=== PATIENT | female | born 1960 | race Caucasian/White ===

== ENCOUNTER 2022-03-09 08:28 | Outpatient (REF) | payer OTHER, SELFPAY ==
[2022-03-09 12:18] LABS: Alanine Aminotransferase 11 U/L (0-31); Albumin Level 3.8 g/dL (3.5-5.0); Alkaline Phosphatase 97 U/L (39-117); Anion Gap 11 (12-20); Aspartate Amino Transferase 17 U/L (5-31); Bilirubin Total 0.4 mg/dL (0.0-1.0); Blood Urea Nitrogen 19 mg/dL (9-16); Calcium 9.3 mg/dL (8.4-10.2); Carbon Dioxide 27 mmol/L (22-29); Chloride 107 mmol/L (96-108); Cholesterol 129 mg/dL; Estimated Glomerular Filt Rate > 60; Glucose Fasting 84 mg/dL (60-99); Glucose Random 84 mg/dL (60-115); HDL Cholesterol 36 mg/dL; LDL Cholesterol Calculated 82 mg/dl; Potassium 4.3 mmol/L (3.3-5.1); Sodium 141 mmol/L (135-145); TSH reflex Free T4 2.22 uIU/mL (0.32-4.0); Total Protein 6.6 g/dL (6.5-8.0); Triglycerides 57 mg/dL
[2022-03-09 12:59] LABS: Vitamin B12 234 pg/mL (200-900)
[2022-03-13 15:04] LABS: Vitamin D 25-OH, D2 <4 ng/mL; Vitamin D 25-OH, D3 29 ng/mL; Vitamin D 25-OH, Total 29 ng/mL (30-100)
== END 2022-03-09 08:29 | disposition home or self-care (01) ==
LOC: HO.HMGCLDS 08:28
PROVIDERS: PCP Internal Medicine; Visit Provider Internal Medicine
DX: Z00.01 Encounter for general adult medical examination with abnormal findings (principal); E66.09 Other obesity due to excess calories; D51.0 Vitamin B12 deficiency anemia due to intrinsic factor deficiency; Z98.84 Bariatric surgery status
CPT/HCPCS: 36415; 80053; 80061; 82306; 82607; 84443

== ENCOUNTER 2023-04-08 14:10 | Outpatient (AMB) | payer OTHER, SELFPAY ==
[2023-04-08 14:14] VITALS: BP 128/78; PULSE 100; TEMP 37.7; O2SAT 98; BMI 32.2
--- NOTE | 2023-04-08 14:14 | A.OFFPC_ITS ---
Vital Signs 04/08/23 14:14 Height 5 ft 2 in Weight 176 lb 4 oz BMI 32.2 BP 128/78 Blood Pressure Location Rt brachial Position Sitting Pulse 100 Pulse Source Pulse Oximeter Temp 99.9 F Temp Source Oral Pulse Oximetry (%) 98 Oxygen Delivery Method Room Air Intake Visit Reasons: Medication Follow Up Allergies Penicillins Adverse Reaction (Verified 04/08/23 14:14) rash Medication List - Last Reconciled 04/08/23 by Martha De La Cruz MD azithromycin 250 mg PO ONCE 5 days cholecalciferol (vitamin D3) 25 mcg PO DAILY 90 days cyanocobalamin (vitamin B-12) 1,000 mcg IM Q4W 90 days syringe with needle, safety (BD Integra Syringe) Use to administer B12 injections IM valacyclovir 500 mg PO BID Tobacco use date assessed: 04/08/23 Dental Screening Dental Screen Date: 04/08/23 Did you have a dental visit in the last 12 months?: Yes Did you have a dental problem in the last 6 months where you did not have access to dental care?: No Was dental information given to patient?: Patient has dentist HPI Medication Follow Up HPI Details Patient is a 62-year-old female came in today to be evaluated for possible pneumonia On March 10 patient was evaluated at [facility] and was diagnosed with acute bronchitis and a touch of pneumonia She was treated with azithromycin, albuterol inhaler which she still have, and codeine syrup Patient says that she felt better for few days and then the cough started again She has been working from home and has not been able to go back to work She said the x-ray was no done She is putting out yellow phlegm I have ordered x-ray, azithromycin sent, she may take [id number] cough medicine and continue albuterol inhaler Note given to be off work for 1 week PFSH Family History Sister Substance use disorder Social History Housing: House Patient Tobacco Use Status: Former Tobacco user e-Cigarette/Vaping Use: Never Used service: No Current occupational status: employed Cognitive needs: No Hearing needs: No Vision needs: Yes Questionnaire Thrive Questionnaire Date Thrive assessed: 02/03/22 CONCETTA-7 AMB Questionnaire CONCETTA-7 Date CONCETTA - 7 assessed: 02/03/22 Source: Developed by Drs. Eliceo Carvalho, Yuly White, Modesto Maguire and colleagues, with an educational jl from [employer]. Review of Systems Const Reports as per HPI Eyes Denies change in vision ENT Denies bleeding gums, Denies dental pain, Denies ear discharge and Denies mouth pain Card Denies chest pain at rest, Denies chest pain with activity, Denies syncope and Denies irregular heart rhythm Resp Denies hemoptysis and Denies stridor GI Denies diarrhea and Denies vomiting Musc Denies as per HPI Skin/Breast Denies skin ulcer and Denies sores Neuro Denies syncope and Denies memory loss Psych Denies memory loss, Denies homicidal ideation and Denies suicidal ideation Physical exam (Primary Care) Vital Signs: Last Vital Signs Temp 99.9 F 04/08/23 14:14 Pulse 100 04/08/23 14:14 BP 128/78 04/08/23 14:14 Pulse Ox 98 04/08/23 14:14 Oxygen Delivery Method Room Air 04/08/23 14:14 BMI result Body Mass Index 32.2 Tobacco/Smoking Status: Tobacco use Status Tobacco use date assessed 04/08/23 04/08/23 14:15 Patient Tobacco Use Status Former Tobacco user 04/08/23 14:15 e-Cigarette/Vaping Use Never Used 04/08/23 14:15 Thrive Assessment: Date of Thrive Assessment Date Thrive assessed 02/03/22 04/08/23 14:15 Const General: cooperative and comfortable Orientation/consciousness: patient oriented x3 HENMT Head: Yes normocephalic and Yes atraumatic Ears: external ears normal General nose exam: Normal external nose present Mouth: Normal oral and palatal mucosa present Eyes Eyelids: Yes eyelids normal Pupils: Equal, round and reactive pupils present EOM: EOMs intact bilaterally Neck Neck: Yes trachea midline and Yes supple Resp Auscultation: clear to auscultation bilaterally Cardio Heart sounds: S1 normal heart sound present and S2 normal heart sound present GI Auscultation: normal bowel sounds Skin General skin exam: elasticity normal and turgor normal Neuro General: patient oriented x3 and moves all extremities Cranial nerves: Yes Equal, round and reactive pupils present Gait exam (Neuro): Normal gait present Extrem Right upper extremity: no edema Psych Mental Status: mental status grossly normal Assessment and Plan Assessment & Plan (1) Acute bronchitis: Code(s): J20.9 - Acute bronchitis, unspecified Qualifiers: Bronchitis organism: other organism Qualified Code(s): J20.8 - Acute bronchitis due to other specified organisms Plan Patient is a 62-year-old female came in today to be evaluated for possible pneumonia On March 10 patient was evaluated at [facility] and was diagnosed with acute bronchitis and a touch of pneumonia She was treated with azithromycin, albuterol inhaler which she still have, and codeine syrup Patient says that she felt better for few days and then the cough started again She has been working from home and has not been able to go back to work Patient says that she feels drained and with coughing sometimes feels short of breath She said the x-ray was no done She is putting out yellow phlegm I have ordered x-ray, azithromycin sent, she may take [id number] cough medicine and continue albuterol inhaler Note given to be off work for 1 week COVID RSV test taken Orders: Orders XR chest 2V Today J20.9 - Acute bronchitis, unspecified SARS-CoV2/FLU/RSV Today R09.89 - Other specified symptoms and signs involving the circulatory and respiratory systems Medications: New azithromycin Take 2 tablets today then 1 daily 250 mg PO ONCE 6 tabs 0RF 5 days J06.9 - Acute upper respiratory infection, unspecified Coding Level of Care Code Est Pt Level 4 (40886) Diagnoses Acute bronchitis due to other specified organisms J20.8 Bronchitis organism: other organism
== END 2023-04-08 15:55 | disposition home or self-care (01) ==
PROVIDERS: PCP Internal Medicine; Visit Provider Internal Medicine
DX: J20.8 Acute bronchitis due to other specified organisms (principal)
CPT/HCPCS: 99214

== ENCOUNTER 2023-04-08 14:43 | Outpatient (REF) | payer OTHER, SELFPAY ==
--- NOTE | ~2023-04-08 | XR_ITS ---
EXAMINATION: XR CHEST CLINICAL INFORMATION: Acute bronchitis COMPARISON: None available. TECHNIQUE: 2 views of the chest were obtained. FINDINGS: The lungs are well expanded and clear of acute process. Heart size and pulmonary vascularity is normal. There is mild dextroscoliosis. No aggressive lytic or sclerotic process seen. XR/XR chest 2V IMPRESSION: Unremarkable chest examination.
[2023-04-08 16:47] LABS: Influenza A PCR POSITIVE (Negative); Influenza B PCR NEGATIVE (Negative); Resp Syncy Virus RNA Qual PCR NEGATIVE (Negative); SARS COV2 PCR INHOUSE NEGATIVE (Negative)
== END 2023-04-08 14:44 | disposition home or self-care (01) ==
LOC: HO.HMGCX 14:43
PROVIDERS: PCP Internal Medicine; Visit Provider Internal Medicine
DX: Z11.52 Encounter for screening for COVID-19 (principal); J20.9 Acute bronchitis, unspecified; R09.89 Other specified symptoms and signs involving the circulatory and respiratory systems
CPT/HCPCS: 0241U; 71046

== ENCOUNTER 2023-05-31 14:25 | Outpatient (AMB) | payer OTHER, SELFPAY ==
[2023-05-31 14:26] VITALS: BP 126/76; PULSE 75; O2SAT 100; BMI 32.2
--- NOTE | 2023-05-31 14:26 | A.OFFPC_ITS ---
Vital Signs 05/31/23 14:26 Height 5 ft 2 in Weight 176 lb BMI 32.2 BP 126/76 Blood Pressure Location Rt brachial Position Sitting Pulse 75 Pulse Source Pulse Oximeter Pulse Oximetry (%) 100 Oxygen Delivery Method Room Air Intake Visit Reasons: Annual PE Allergies Penicillins Adverse Reaction (Verified 05/31/23 14:26) rash Medication List - Last Reconciled 05/31/23 by Martha De La Cruz MD cholecalciferol (vitamin D3) 25 mcg PO DAILY 90 days cyanocobalamin (vitamin B-12) 1,000 mcg IM Q4W 90 days syringe with needle, safety (BD Integra Syringe) Use to administer B12 injections IM valacyclovir 500 mg PO BID Tobacco use date assessed: 05/31/23 Dental Screening Dental Screen Date: 05/31/23 Did you have a dental visit in the last 12 months?: Yes Did you have a dental problem in the last 6 months where you did not have access to dental care?: No Was dental information given to patient?: Patient has dentist HPI Annual PE HPI Details Patient is 62-year-old female came in today for physical examination Patient is going through very stressful break-up with significant other She is feeling anxious that once he leaves he will take everything from home, patient says that all belongings are hers She has been working from home for the past 1 week because of that reason Patient will start seeing therapist early next month Meanwhile I am starting her on Lexapro 10 mg she is to take half a tablet for a week and then full tablet I have also sent in few tablets of lorazepam as bridging medication We will set up telemedicine visit in 3 weeks to see how she is doing She says that she has gained 20 lb in last few months because of that She will be due for Cologuard December of this year, patient says that she will think about colonoscopy and will get back to me. Pap smear through [facility] Mammogram was February of last year She also had labs in February reviewed again. Lab order placed fasting Physical exam in 1 year [facility] Family History Sister Substance use disorder Social History Housing: House Patient Tobacco Use Status: Former Tobacco user e-Cigarette/Vaping Use: Never Used service: No Current occupational status: employed Cognitive needs: No Hearing needs: No Vision needs: Yes Questionnaire Thrive Questionnaire Date Thrive assessed: 02/03/22 CONCETTA-7 AMB Questionnaire CONCETTA-7 Date CONCETTA - 7 assessed: 02/03/22 Source: Developed by Drs. Eliceo Carvalho, Yuly White, Modesto Maguire and colleagues, with an educational jl from [employer]. Review of Systems Const Denies chills, Denies fever(s) and Denies headache(s) Eyes Denies blurry vision ENT Denies headache(s), Denies nasal discharge, Denies nasal obstruction, Denies odynophagia and Denies sinus pain Card Denies chest pain at rest and Denies chest pain with activity Resp Denies cough and Denies hemoptysis GI Denies diarrhea, Denies odynophagia, Denies vomiting and Denies hematemesis Reports as per HPI Musc Denies abnormal gait Skin/Breast Reports as per HPI Neuro Denies Neuro-related abnormal movements, Denies Abnormal speech present, Denies abnormal gait, Denies headache(s) and Denies Sensory deficit (Neuro) Psych Denies mood swings and Denies paranoia Endo Reports as per HPI Hemant/Lymph Reports as per HPI Aller/Immun Reports as per HPI Physical exam (Primary Care) Vital Signs: Last Vital Signs Pulse 75 05/31/23 14:26 BP 126/76 05/31/23 14:26 Pulse Ox 100 05/31/23 14:26 Oxygen Delivery Method Room Air 05/31/23 14:26 BMI result Body Mass Index 32.2 Tobacco/Smoking Status: Tobacco use Status Tobacco use date assessed 05/31/23 05/31/23 14:29 Patient Tobacco Use Status Former Tobacco user 05/31/23 14:29 e-Cigarette/Vaping Use Never Used 05/31/23 14:29 Thrive Assessment: Date of Thrive Assessment Date Thrive assessed 02/03/22 05/31/23 14:29 Const General: cooperative, comfortable and no acute distress Orientation/consciousness: patient oriented x3 HENMT Head: Yes normocephalic and Yes atraumatic Eyes General: appearance normal, both eyes and all related structures Pupils: Equal, round and reactive pupils present EOM: EOMs intact bilaterally Neck Neck: Yes supple and No lymphadenopathy Thyroid: Thyroid normal Lymphatic: no lymphadenopathy noted Resp Effort & Inspection: normal respiratory effort and able to speak in complete sentences Auscultation: clear to auscultation bilaterally Cardio Heart sounds: S1 normal heart sound present and S2 normal heart sound present GI Palpation (GI): Soft to palpation and nontender Auscultation: normal bowel sounds General: Yes no CVA tenderness Back/Spine/Pelvis Back: no CVA tenderness Skin General skin exam: elasticity normal and turgor normal Neuro General: patient oriented x3 and gait normal Cranial nerves: Yes Equal, round and reactive pupils present Speech: No Abnormal speech present Sensory Exam: No Sensory deficit (Neuro) Coordination: tandem gait normal and Romberg test negative Extrem General: Yes normal exam except as noted and No edema Assessment and Plan Assessment & Plan (1) Encounter for general adult medical examination with abnormal findings: Code(s): Z00.01 - Encounter for general adult medical examination with abnormal findings (2) Obesity due to excess calories: Code(s): E66.09 - Other obesity due to excess calories Qualifiers: Obesity classification: adult class 1 (BMI 30 - 34.9) Serious obesity comorbidity presence: without serious comorbidity Body mass index: BMI 32.0- 32.9 Qualified Code(s): E66.09 - Other obesity due to excess calories; Z68.32 - Body mass index [BMI] 32.0-32.9, adult (3) Anxiety, generalized: Code(s): F41.1 - Generalized anxiety disorder (4) Major depression, recurrent: Code(s): F33.9 - Major depressive disorder, recurrent, unspecified (5) Stress at home: Code(s): F43.9 - Reaction to severe stress, unspecified Plan Patient is 62-year-old female came in today for physical examination Patient is going through very stressful break-up with significant other She is feeling anxious that once he leaves he will take everything from home, patient says that all belongings are hers She has been working from home for the past 1 week because of that reason Patient will start seeing therapist early next month Meanwhile I am starting her on Lexapro 10 mg she is to take half a tablet for a week and then full tablet I have also sent in few tablets of lorazepam as bridging medication We will set up telemedicine visit in 3 weeks to see how she is doing She says that she has gained 20 lb in last few months because of that She will be due for Cologuard December of this year, patient says that she will think about colonoscopy and will get back to me. Pap smear through [facility] Mammogram was February of last year She also had labs in February reviewed again. Lab order placed fasting Physical exam in 1 year Medications: New escitalopram oxalate (Lexapro) Half tablet for a week and then full tablet 10 mg PO DAILY 30 tabs 0RF lorazepam To sleep at night 0.5 mg PO BEDTIME PRN 30 tabs 0RF Difficulty sleeping Coding Level of Care Code Est Pt Prev Care 40-64y(88741) Diagnoses Encounter for general adult medical examination with abnormal findings Z00.01 Class 1 obesity due to excess calories without serious comorbidity with body mass index (BMI) of 32.0 to 32.9 in adult E66.09; Z68.32 Obesity classification: adult class 1 (BMI 30 - 34.9) Serious obesity comorbidity presence: without serious comorbidity Body mass index: BMI 32.0-32.9 Anxiety, generalized F41.1 Major depression, recurrent F33.9 Stress at home F43.9
== END 2023-05-31 15:10 | disposition home or self-care (01) ==
PROVIDERS: PCP Internal Medicine; Visit Provider Internal Medicine
DX: Z00.01 Encounter for general adult medical examination with abnormal findings (principal); E66.09 Other obesity due to excess calories; F33.9 Major depressive disorder, recurrent, unspecified; Z68.32 Body mass index [BMI] 32.0-32.9, adult; F41.1 Generalized anxiety disorder; F43.9 Reaction to severe stress, unspecified
CPT/HCPCS: 99213; 99396

== ENCOUNTER 2023-06-23 08:33 | Outpatient (AMB) | payer OTHER, SELFPAY ==
--- NOTE | 2023-06-23 09:20 | A.OFFPC_ITS ---
Intake Visit Reasons: Follow up Allergies Penicillins Adverse Reaction (Verified 06/23/23 09:20) rash Medication List - Last Reconciled 06/23/23 by Martha De La Cruz MD cholecalciferol (vitamin D3) 25 mcg PO DAILY 90 days cyanocobalamin (vitamin B-12) 1,000 mcg IM Q4W 90 days escitalopram oxalate (Lexapro) 10 mg PO DAILY lorazepam 0.5 mg PO BEDTIME PRN syringe with needle, safety (BD Integra Syringe) Use to administer B12 injections IM valacyclovir 500 mg PO BID Tobacco use date assessed: 06/23/23 Dental Screening Dental Screen Date: 06/23/23 Did you have a dental visit in the last 12 months?: Yes Did you have a dental problem in the last 6 months where you did not have access to dental care?: No Was dental information given to patient?: Patient has dentist HPI Follow up HPI Details Patient is a 62-year-old female this is a telemedicine conference Patient was started on Escitalopram 10 mg when she verbalize to being under lot of stress as she was going through separation from partner Patient is feeling much better, she was also given lorazepam tablet for the night she is sleeping much better, she will continue Renee prime for now I have sent another script off rasp and 30 tablets, patient is aware that this medication is habit-forming and if she does continue taking it it will require 3 month visit for refill. Lab order placed we will mail that to her she will go to a nearby lab for that. PFSH Family History Sister Substance use disorder Social History Housing: House Patient Tobacco Use Status: Former Tobacco user e-Cigarette/Vaping Use: Never Used service: No Current occupational status: employed Cognitive needs: No Hearing needs: No Vision needs: Yes Questionnaire Thrive Questionnaire Date Thrive assessed: 02/03/22 AUDIT C Alcohol Use Questionnaire (AUDIT-C) 1. How often do you have a drink containing alcohol?: Never 3. How often do you have six or more drinks on one occasion?: Never Total Score: 0 Score Reviewed/Action Taken: Yes CONCETTA-7 AMB Questionnaire CONCETTA-7 Date CONCETTA - 7 assessed: 02/03/22 Source: Developed by Drs. Eliceo Carvalho, Yuly White, Modesto Maguire and colleagues, with an educational jl from [employer]. Review of Systems Const Denies chills and Denies fever(s) ENT Denies epistaxis and Denies nasal discharge Card Denies chest pain Resp Denies chest congestion, Denies cough and Denies hemoptysis GI Denies diarrhea and Denies nausea Skin/Breast Denies rash Neuro Reports no additional complaints Psych Reports no additional complaints Endo Reports no additional complaints Physical exam (Primary Care) Tobacco/Smoking Status: Tobacco use Status Tobacco use date assessed 06/23/23 06/23/23 09:21 Patient Tobacco Use Status Former Tobacco user 06/23/23 09:21 e-Cigarette/Vaping Use Never Used 06/23/23 09:21 Thrive Assessment: Date of Thrive Assessment Date Thrive assessed 02/03/22 06/23/23 09:21 Telehealth Telehealth Location of provider rendering services: practice address Location of patient: address on file Patient Identification confirmed using: Name, : Yes Telehealth method: video (attempted) Patient verbally consented to treatment: Yes Patient verbally consented to billing insurance company: Yes Patient informed of any privacy concerns related to visit: Yes Minutes spent on Phone/Video with Pt.: 13 Assessment and Plan Assessment & Plan (1) Major depression, recurrent: Code(s): F33.9 - Major depressive disorder, recurrent, unspecified Qualifiers: Active/Remission status: in partial remission Qualified Code(s): F33.41 - Major depressive disorder, recurrent, in partial remission (2) Stress at home: Code(s): F43.9 - Reaction to severe stress, unspecified (3) Anxiety, generalized: Code(s): F41.1 - Generalized anxiety disorder (4) Obesity due to excess calories: Code(s): E66.09 - Other obesity due to excess calories Qualifiers: Body mass index: BMI 32.0-32.9 Obesity classification: adult class 1 (BMI 30 - 34.9) Serious obesity comorbidity presence: without serious comorbid ity Qualified Code(s): E66.09 - Other obesity due to excess calories; Z68.32 - Body mass index [BMI] 32.0-32.9, adult Plan Patient is a 62-year-old female this is a telemedicine conference Patient was started on Escitalopram 10 mg when she verbalize to being under lot of stress as she was going through separation from partner Patient is feeling much better, she was also given lorazepam tablet for the night she is sleeping much better, she will continue Renee prime for now I have sent another script off rasp and 30 tablets, patient is aware that this medication is habit-forming and if she does continue taking it it will require 3 month visit for refill. Lab order placed we will mail that to her she will go to a nearby lab for that. Orders: Orders Complete Blood Count Auto Diff Today E66.09 - Other obesity due to excess calories, F33.9 - Major depressive disorder, recurrent, unspecified, F41.1 - Generalized anxiety disorder, F43.9 - Reaction to severe stress, unspecified, Z68.32 - Body mass index [BMI] 32.0-32.9, adult Lipid Panel Today E66.09 - Other obesity due to excess calories, F33.9 - Major depressive disorder, recurrent, unspecified, F41.1 - Generalized anxiety disord er, F43.9 - Reaction to severe stress, unspecified, Z68.32 - Body mass index [BMI] 32.0-32.9, adult Comprehensive [place]. Panel Fast Today E66.09 - Other obesity due to excess calories, F33.9 - Major depressive disorder, recurrent, unspecified, F41.1 - Generalized anxiety disorder, F43.9 - Reaction to severe stress, unspecified, Z68.32 - Body mass index [BMI] 32.0-32.9, adult TSH reflex Free T4 Today E66.09 - Other obesity due to excess calories, F33.9 - Major depressive disorder, recurrent, unspecified, F41.1 - Generalized anxiety disorder, F43.9 - Reaction to severe stress, unspecified, Z68.32 - Body mass index [BMI] 32.0-32.9, adult Medications: Changed From valacyclovir 500 mg PO BID 14 tabs 0RF To valacyclovir 500 mg PO BID 30 tabs 0RF 15 days Refilled escitalopram oxalate (Lexapro) Half tablet for a week and then full tablet 10 mg PO DAILY 90 tabs 0RF lorazepam To sleep at night 0.5 mg PO BEDTIME PRN 30 tabs 0RF Difficulty sleeping Coding Level of Care Code Tele Est Pt Level 3 (30056) Diagnoses Recurrent major depressive disorder, in partial remission F33.41 Active/Remission status: in partial remission Stress at home F43.9 Anxiety, generalized F41.1 Class 1 obesity due to excess calories without serious comorbidity with body mass index (BMI) of 32.0 to 32.9 in adult E66.09; Z68.32 Body mass index: BMI 32.0-32.9 Obesity classification: adult class 1 (BMI 30 - 34.9) Serious obesity comorbidity presence: without serious comorbidity
== END 2023-06-23 11:55 | disposition home or self-care (01) ==
PROVIDERS: PCP Internal Medicine; Visit Provider Internal Medicine
DX: F33.41 Major depressive disorder, recurrent, in partial remission (principal); F43.9 Reaction to severe stress, unspecified; E66.09 Other obesity due to excess calories; Z68.32 Body mass index [BMI] 32.0-32.9, adult; F41.1 Generalized anxiety disorder
CPT/HCPCS: 99213

== ENCOUNTER 2023-07-28 08:56 | Outpatient (AMB) | payer OTHER, SELFPAY ==
[2023-07-28 08:28] VITALS: BMI 33.8
--- NOTE | 2023-07-28 08:28 | A.OFFPC_ITS ---
Vital Signs 07/28/23 08:28 Height 5 ft 2 in Weight 185 lb BMI 33.8 Intake Visit Reasons: Follow Up Allergies Penicillins Adverse Reaction (Verified 06/23/23 09:20) rash Medication List - Last Reconciled 07/28/23 by Martha De La Cruz MD cholecalciferol (vitamin D3) 25 mcg PO DAILY 90 days cyanocobalamin (vitamin B-12) 1,000 mcg IM Q4W 90 days escitalopram oxalate (Lexapro) 10 mg PO DAILY lorazepam 0.5 mg PO BEDTIME PRN syringe with needle, safety (BD Integra Syringe) Use to administer B12 injections IM valacyclovir 500 mg PO BID 15 days Tobacco use date assessed: 06/23/23 Dental Screening Dental Screen Date: 06/23/23 HPI Follow Up HPI Details Patient is 63 year old female this is telemed visit patient wanted to talk about wt lose medicaitons she says she has called her insurance they wont cover the injectable how ever they will cover oral medication like Phentermin and Phentermin topamax combo side effect of medication discussed with patient she will have labs done first and then we will decide if Phentermin is a good choice for her as she also have anxiety issues PFSH Family History Sister Substance use disorder Social History Housing: House Patient Tobacco Use Status: Former Tobacco user e-Cigarette/Vaping Use: Never Used service: No Current occupational status: employed Cognitive needs: No Hearing needs: No Vision needs: Yes Questionnaire Thrive Questionnaire Date Thrive assessed: 02/03/22 CONCETTA-7 AMB Questionnaire CONCETTA-7 Date CONCETTA - 7 assessed: 02/03/22 Source: Developed by Drs. Eliceo Carvalho, Yuly White, Modesto Maguire and colleagues, with an educational jl from [employer]. Review of Systems Const Denies chills and Denies fever(s) ENT Denies epistaxis and Denies nasal discharge Card Denies chest pain Resp Denies chest congestion, Denies cough and Denies hemoptysis GI Denies diarrhea and Denies nausea Skin/Breast Denies rash Neuro Reports no additional complaints Psych Reports no additional complaints Endo Reports no additional complaints Physical exam (Primary Care) BMI result Body Mass Index 33.8 Tobacco/Smoking Status: Tobacco use Status Tobacco use date assessed 06/23/23 07/28/23 08:29 Patient Tobacco Use Status Former Tobacco user 07/28/23 08:29 e-Cigarette/Vaping Use Never Used 07/28/23 08:29 Thrive Assessment: Date of Thrive Assessment Date Thrive assessed 02/03/22 07/28/23 08:29 Telehealth Telehealth Telehealth Platform: [employer] Location of provider rendering services: practice address Location of patient: address on file Patient Identification confirmed using: Name, : Yes Telehealth method: voice only Patient verbally consented to treatment: Yes Patient verbally consented to billing insurance company: Yes Patient informed of any privacy concerns related to visit: Yes Minutes spent on Phone/Video with Pt.: 14 Assessment and Plan Assessment & Plan (1) Obesity due to excess calories: Code(s): E66.09 - Other obesity due to excess calories Qualifiers: Body mass index: BMI 32.0-32.9 Obesity classification: adult class 1 (BMI 30 - 34.9) Serious obesity comorbidity presence: without serious comorbidity Qualified Code(s): E66.09 - Other obesity due to excess calories; Z68.32 - Body mass index [BMI] 32.0-32.9, adult Plan Patient is 63 year old female this is telemed visit patient wanted to talk about wt lose medicaitons she says she has called her insurance they wont cover the injectable how ever they will cover oral medication like Phentermin and Phentermin topamax combo side effect of medication discussed with patient she will have labs done first and then we will decide if Phentermin is a good choice for her as she also have anxiety issues Coding Level of Care Code Tele Est Pt Level 3 (07367) Diagnoses Class 1 obesity due to excess calories without serious comorbidity with body mass index (BMI) of 32.0 to 32.9 in adult E66.09; Z68.32 Body mass index: BMI 32.0-32.9 Obesity classification: adult class 1 (BMI 30 - 34.9) Serious obesity comorbidity presence: without serious comorbidity
== END 2023-07-28 09:21 | disposition home or self-care (01) ==
LOC: HO.HMGC 08:56
PROVIDERS: PCP Internal Medicine; Visit Provider Internal Medicine
DX: E66.09 Other obesity due to excess calories (principal); Z68.32 Body mass index [BMI] 32.0-32.9, adult
CPT/HCPCS: 99442

== ENCOUNTER 2023-08-04 08:43 | Outpatient (AMB) | payer OTHER, SELFPAY ==
--- NOTE | 2023-08-04 09:40 | A.OFFPC_ITS ---
Intake Visit Reasons: Discuss Labs~ [phone] Allergies Penicillins Adverse Reaction (Verified 08/04/23 09:40) rash Medication List - Last Reconciled 08/04/23 by Martha De La Cruz MD cholecalciferol (vitamin D3) 25 mcg PO DAILY 90 days cyanocobalamin (vitamin B-12) 1,000 mcg IM Q4W 90 days escitalopram oxalate (Lexapro) 10 mg PO DAILY lorazepam 0.5 mg PO BEDTIME PRN syringe with needle, safety (BD Integra Syringe) Use to administer B12 injections IM valacyclovir 500 mg PO BID 15 days Tobacco use date assessed: 08/04/23 Dental Screening Dental Screen Date: 08/04/23 Did you have a dental visit in the last 12 months?: Yes Did you have a dental problem in the last 6 months where you did not have access to dental care?: No Was dental information given to patient?: Patient has dentist HPI Discuss Labs~ [phone] HPI Details Patient had labs done which shows Hb of 8.7 I dont have any previous labs to compare she has no rectal bleed, no constipation or hemorrhoid she is on B12 injections monthly labs discussed with patient she is due for colonoscopy, i have placed ref to gastro for that and Hematology as well she has Microcytic anemia i have sent Iron supplement labs to be repeated again in 4 wks [facility] Family History Sister Substance use disorder Social History Housing: House Patient Tobacco Use Status: Former Tobacco user e-Cigarette/Vaping Use: Never Used service: No Current occupational status: employed Cognitive needs: No Hearing needs: No Vision needs: Yes Questionnaire Thrive Questionnaire Date Thrive assessed: 02/03/22 AUDIT C Alcohol Use Questionnaire (AUDIT-C) 1. How often do you have a drink containing alcohol?: Never 3. How often do you have six or more drinks on one occasion?: Never Total Score: 0 Score Reviewed/Action Taken: Yes CONCETTA-7 AMB Questionnaire CONCETTA-7 Date CONCETTA - 7 assessed: 02/03/22 Source: Developed by Drs. Eliceo Carvalho, Yuly White, Modesto Maguire and colleagues, with an educational jl from [employer]. Review of Systems Const Denies chills and Denies fever(s) ENT Denies epistaxis and Denies nasal discharge Card Denies chest pain Resp Denies chest congestion, Denies cough and Denies hemoptysis GI Denies diarrhea and Denies nausea Skin/Breast Denies rash Neuro Reports no additional complaints Psych Reports no additional complaints Endo Reports no additional complaints Physical exam (Primary Care) Tobacco/Smoking Status: Tobacco use Status Tobacco use date assessed 08/04/23 08/04/23 09:41 Patient Tobacco Use Status Former Tobacco user 08/04/23 09:41 e-Cigarette/Vaping Use Never Used 08/04/23 09:41 Thrive Assessment: Date of Thrive Assessment Date Thrive assessed 02/03/22 08/04/23 09:41 Telehealth Telehealth Telehealth Platform: [employer] Location of provider rendering services: practice address Location of patient: address on file Patient Identification confirmed using: Name, : Yes Telehealth method: voice only Patient verbally consented to treatment: Yes Patient verbally consented to billing insurance company: Yes Patient informed of any privacy concerns related to visit: Yes Minutes spent on Phone/Video with Pt.: 17 Assessment and Plan Assessment & Plan (1) Iron deficiency anemia: Code(s): D50.9 - Iron deficiency anemia, unspecified Qualifiers: Iron deficiency anemia type: chronic blood loss Qualified Code(s): D50.0 - Iron deficiency anemia secondary to blood loss (chronic) (2) Colon cancer screening: Code(s): Z12.11 - Encounter for screening for malignant neoplasm of colon Plan Patient had labs done which shows Hb of 8.7 I dont have any previous labs to compare she has no rectal bleed, no constipation or hemorrhoid she is on B12 injections monthly labs discussed with patient she is due for colonoscopy, i have placed ref to gastro for that and Hematology as well she has Microcytic anemia i have sent Iron supplement labs to be repeated again in 4 wks Orders: Orders Folate Today D50.9 - Iron deficiency anemia, unspecified Vitamin B12 Today D50.9 - Iron deficiency anemia, unspecified Ferritin Today D50.9 - Iron deficiency anemia, unspecified Complete Blood Count Auto Diff Today D50.9 - Iron deficiency anemia, unspecifie d Referrals Hematology & Oncology Referral D50.9 - Iron deficiency anemia, unspecified Gastroenterology Referral D50.9 - Iron deficiency anemia, unspecified, Z12.11 - Encounter for screening for malignant neoplasm of colon Coding Level of Care Code Tele Est Pt Level 3 (47749) Diagnoses Iron deficiency anemia due to chronic blood loss D50.0 Iron deficiency anemia type: chronic blood loss Colon cancer screening Z12.11
== END 2023-08-04 13:43 | disposition home or self-care (01) ==
LOC: HO.HMGC 08:43
PROVIDERS: PCP Internal Medicine; Visit Provider Internal Medicine
DX: D50.0 Iron deficiency anemia secondary to blood loss (chronic) (principal); Z12.11 Encounter for screening for malignant neoplasm of colon
CPT/HCPCS: 99442

== ENCOUNTER → 2023-08-10 08:24 | Outpatient (BNV) | payer OTHER, SELFPAY | PROVIDERS: PCP Internal Medicine; Referring Provider Internal Medicine; Visit Provider Internal Medicine | DX: D50.9 Iron deficiency anemia, unspecified (principal) | CPT/HCPCS: 99204; 99213 ==

== ENCOUNTER 2023-09-08 07:30 | Outpatient (RCR) | payer OTHER, SELFPAY ==
[2023-08-18 07:26] VITALS: BP 99/48; PULSE 74; RESP 18; TEMP 36.2
[2023-08-18] MEDS: Iron Sucrose Complex 200 MG, Iron Sucrose Complex 100 MG in 0.9 % Sodium Chloride 250 ML 177 MG IV (07:42)
[2023-08-18] MEDS: 0.9 % Sodium Chloride Flush 10 ML SYRINGE 5 ML IVFLUSH (09:15)
[2023-08-25 07:25] VITALS: BP 116/58; PULSE 73; RESP 18; TEMP 36.2
[2023-08-25] MEDS: Iron Sucrose Complex 200 MG, Iron Sucrose Complex 100 MG in 0.9 % Sodium Chloride 250 ML 177 MG IV (07:32)
[2023-09-01 07:28] VITALS: BP 98/48; PULSE 63; RESP 18; TEMP 36.8
[2023-09-01] MEDS: Iron Sucrose Complex 200 MG, Iron Sucrose Complex 100 MG in 0.9 % Sodium Chloride 250 ML 177 MG IV (07:39)
[2023-09-08 07:19] VITALS: BP 98/54; PULSE 68; RESP 18; TEMP 36.1
[2023-09-08] MEDS: Iron Sucrose Complex 200 MG, Iron Sucrose Complex 100 MG in 0.9 % Sodium Chloride 250 ML 177 MG IV (07:28)
[2023-09-08] MEDS: 0.9 % Sodium Chloride Flush 10 ML SYRINGE 5 ML IVFLUSH (09:05)
== END 2023-09-08 14:12 | disposition home or self-care (01) ==
LOC: HO.INF 07:30
PROVIDERS: Visit Provider Internal Medicine
DX: D50.9 Iron deficiency anemia, unspecified (principal)
CPT/HCPCS: 96365; 96366; J1756

== ENCOUNTER 2023-10-04 15:26 | Outpatient (AMB) | payer OTHER, SELFPAY ==
--- NOTE | 2023-10-04 15:27 | A.OFFVIS_ITS ---
Vital Signs 10/04/23 15:29 Height 5 ft 2 in Weight 188 lb 4.396 oz BMI 34.4 BP 112/56 L Blood Pressure Location Rt brachial Position Sitting Pulse 70 Pulse Source Pulse Oximeter Pulse Oximetry (%) 100 Oxygen Delivery Method Room Air Intake Visit Reasons: Iron deficiency anemia, unspecified Intake Note: Lilian presents in office today for a scheduled initial assessment. CC; Pt reports that they have been experiencing iron deficiency anemia over the course of the last few months. Pt had been receiving iron infusions which have been somewhat helpful but not overly so. Pt reports having chronic fatigue which they are still experiencing. Pt has also experienced episodes of hypotension as well as dizziness which is primarily at night. Pt also reports that they are interested in discussing their most recent lab values and how that is relevant to their current condition. Pt reports that they did a cologuard approximately 3 years ago which was negative. Pt states that their last colo s/p was approximately 10 - 12 years ago. Convalescent Sitter Required: No Allergies Penicillins Adverse Reaction (Verified 10/04/23 15:28) rash PFSH Medical History Anemia Surgical History S/P cholecystectomy Family History Sister Substance use disorder Brother NHL (non-Hodgkin's lymphoma) Brother CAD (coronary artery disease) Father CAD (coronary artery disease) Paternal Aunt Breast cancer Social History Housing: House Patient Tobacco Use Status: Former Tobacco user e-Cigarette/Vaping Use: Never Used service: No Current occupational status: employed Cognitive needs: No Hearing needs: No Vision needs: Yes Review of Systems Const Denies weight gain and Denies weight loss ENT Reports no additional complaints, Denies dysphagia and Denies odynophagia Card Reports no additional complaints Resp Reports no additional complaints GI Denies abdominal pain, Denies belching, Denies melena, Denies bloating, Denies change in bowel habits, Denies dysphagia, Denies excessive flatus, Denies dyspepsia, Denies heartburn, Denies diarrhea, Denies loose stools, Denies nausea, Denies odynophagia and Denies vomiting Musc Reports no additional complaints Neuro Reports no additional complaints Psych Reports no additional complaints Endo Reports no additional complaints Physical Exam Vital Signs: Last Vital Signs Pulse 70 10/04/23 15:29 BP 112/56 L 10/04/23 15:29 Pulse Ox 100 10/04/23 15:29 Oxygen Delivery Method Room Air 10/04/23 15:29 BMI result Body Mass Index 34.4 Const General: healthy appearing, no acute distress and well developed Nutritional Appearance: well nourished Orientation/consciousness: patient oriented x3 Resp Effort & Inspection: normal respiratory effort, able to speak in complete sentences, no tracheal deviation and symmetric chest movement Auscultation: clear to auscultation bilaterally Cardio Rate: regular rate GI Inspection: Yes normal to inspection and No distended Palpation (GI): Soft to palpation, not firm, nontender and No hepatosplenomegaly present Auscultation: normal bowel sounds General: Yes no CVA tenderness Back/Spine/Pelvis Back: no CVA tenderness Skin General skin exam: elasticity normal, turgor normal and dry skin Neuro General: patient oriented x3 Psych Appearance: grossly normal Mental Status: mental status grossly normal Assessment & Plan Assessment & Plan (1) Colon cancer screening: Code(s): Z12.11 - Encounter for screening for malignant neoplasm of colon Category: Medical (2) Iron deficiency anemia: Code(s): D50.9 - Iron deficiency anemia, unspecified Category: Medical Qualifiers: Iron deficiency anemia type: chronic blood loss Qualified Code(s): D50.0 - Iron deficiency anemia secondary to blood loss (chronic) Plan Patient denies any GI, cardiac or respiratory symptoms.? Denies any issues with anesthesia in the past.? Denies any history of sleep apnea.? No history infectious diseases in the past or present.? Not on any anticoagulation therapy.? No family or personal history of colon cancer or polyps.? Patient had Cologuard was -3 years ago. Recently patient has been diagnosed with anemia and has been getting iron infusions. Patient denies melena, hematochezia, unintentional weight loss or ribbon like stools.? Discussed at length the pre- procedure,? prep, diet & medications as well as what to expect prior, during and after the procedure.?? Stressed the importance of good bowel prep.? Recommended the use of Vaseline or Calmoseptine OTC & baby wipes with bowel movements to promote comfort.? ?Patient verbalizes understanding and agrees to plan of care.? She was given the opportunity to ask questions and all questions answered.? We will see her after the procedure.? Medications: New bisacodyl (Dulcolax (bisacodyl)) take 4 tabs at noon the day before your colonoscopy 20 mg (4 x 5 mg) PO ONCE 4 tabs 0RF 1 day Z12.11 - Encounter for screening for malignant neoplasm of colon polyethylene glycol 3350 (Miralax) As directed by gastroenterology department at [facility] 238 grams PO ONCE 238 grams 0RF Z12.11 - Encounter for screening for malignant neoplasm of colon Coding Level of Care Code New Pt Level 3 (87417) Diagnoses Colon cancer screening Z12.11 Iron deficiency anemia due to chronic blood loss D50.0 Iron deficiency anemia type: chronic blood loss Time Spent (min) 40 Comment 30 minutes spent with patient and additional 10 minutes spent reviewing her records
[2023-10-04 15:29] VITALS: BP 112/56; PULSE 70; O2SAT 100; BMI 34.4
== END 2023-10-04 16:41 | disposition home or self-care (01) ==
PROVIDERS: PCP Internal Medicine; Visit Provider Nurse Practitioner Family
DX: D50.0 Iron deficiency anemia secondary to blood loss (chronic) (principal); Z12.11 Encounter for screening for malignant neoplasm of colon
CPT/HCPCS: 99203

== ENCOUNTER → 2023-10-04 15:26 | Outpatient (BNVA) | payer OTHER, SELFPAY | PROVIDERS: PCP Internal Medicine; Visit Provider Nurse Practitioner Family ==

== ENCOUNTER 2023-12-30 09:06 | Outpatient (AMB) | payer OTHER, SELFPAY ==
[2023-12-30 09:09] VITALS: BP 110/62; PULSE 70; O2SAT 96; BMI 32.1
--- NOTE | 2023-12-30 09:09 | A.OFFPC_ITS ---
Vital Signs 12/30/23 09:09 Height 5 ft 2 in Weight 175 lb 6 oz BMI 32.1 BP 110/62 Blood Pressure Location Lt brachial Position Sitting Pulse 70 Pulse Source Pulse Oximeter Pulse Oximetry (%) 96 Oxygen Delivery Method Room Air Intake Visit Reasons: 6 Month F/U Allergies Penicillins Adverse Reaction (Verified 12/30/23 09:09) rash Medication List - Last Reconciled 12/30/23 by Martha De La Cruz MD albuterol sulfate 90 mcg/actuation 90 mcg inhalation DAILY bisacodyl (Dulcolax (bisacodyl)) 20 mg (4 x 5 mg) PO ONCE 1 day cholecalciferol (vitamin D3) 25 mcg PO DAILY 90 days cyanocobalamin (vitamin B-12) 1,000 mcg IM Q4W 90 days escitalopram oxalate (Lexapro) 10 mg PO DAILY inhalational spacing device (ProChamber) As directed lorazepam 0.5 mg PO BEDTIME PRN polyethylene glycol 3350 (Miralax) 238 grams PO ONCE syringe with needle, safety (BD Integra Syringe) Use to administer B12 injections IM valacyclovir 500 mg PO BID 15 days Tobacco use date assessed: 12/30/23 Dental Screening Dental Screen Date: 12/30/23 Did you have a dental visit in the last 12 months?: Yes Did you have a dental problem in the last 6 months where you did not have access to dental care?: No Was dental information given to patient?: Patient has dentist HPI 6 Month F/U HPI Details Patient is 63 year female came in today to talk about few things Patient is currently attending a weight loss program and is on set lb medication She is up to 5 mg now and was able to lose some weight Patient is tolerating medication Recurrent cold sores, patient was treating cold sores as they appeared but now she is getting them every other month I am changing the valacyclovir to 500 mg daily B12 deficiency, patient is on B12 injections since she has had gastric bypass surgery in Requesting refill Patient have a follow-up appointment in June [facility] Medical History Anemia Surgical History S/P cholecystectomy Family History Sister Substance use disorder Brother NHL (non-Hodgkin's lymphoma) Brother CAD (coronary artery disease) Father CAD (coronary artery disease) Paternal Aunt Breast cancer Social History Housing: House Patient Tobacco Use Status: Former Tobacco user e-Cigarette/Vaping Use: Never Used service: No Current occupational status: employed Cognitive needs: No Hearing needs: No Vision needs: Yes Questionnaire PHQ-9 Over the last 2 weeks, how often have you been bothered by any of the following problems? 1. Little interest or pleasure in doing things: not at all 2. Feeling down, depressed, or hopeless: not at all 3. Trouble falling or staying asleep, or sleeping too much: not at all 4. Feeling tired or having little energy: not at all 5. Poor appetite or overeating: not at all 6. Feeling bad about yourself - or that you are a failure or have let yourself or your family down: not at all 7. Trouble concentrating on things, such as reading the newspaper or watching television: not at all 8. Moving or speaking so slowly that other people could have noticed. Or the opposite - being so fidgety or restless that you have been moving around a lot more than usual: not at all 9. Thoughts that you would be better off or of hurting yourself in some way: not at all Total score: 0 Depression Screening Interpretation: Negative Depression Screening Done: Yes 45765 - PHQ-9 Billing: Yes Source: Developed by Drs. Eliceo Carvalho, Yuly White, Modesto Maguire and colleagues, with an educational jl from [employer]. Thrive Questionnaire Date Thrive assessed: 12/30/23 I am a: Patient What is your living situation today?: I have a steady place to live Within the past 12 months, did the food you bought not last and you didn't have the money to get more?: Never true Within the past 12 months, did you worry whether your food would run out before you got money to buy more?: Never true Do you have trouble paying for medicines?: No Do you have trouble getting transportation to medical appointments?: No Do you have trouble paying your heating and electricity bill?: No Do you have trouble taking care of your child, family member or friend?: No Do you have trouble with day-to-day activities such as bathing, preparing meals, shopping, managing finances, etc.?: No Are you currently unemployed and looking for a job?: No Are you interested in more education?: No Please select the resources that you would like help with: None Currently or been in a relationship where the following occur: I choose not to answer THRIVE Score: 0 AUDIT C Alcohol Use Questionnaire (AUDIT-C) 1. How often do you have a drink containing alcohol?: Never 3. How often do you have six or more drinks on one occasion?: Never Total Score: 0 Score Reviewed/Action Taken: Yes CONCETTA-7 AMB Questionnaire CONCETTA-7 Date CONCETTA - 7 assessed: 12/30/23 Feeling nervous, anxious, or on edge: 0 = Not at all Not being able to stop or control worryin = Not at all Worrying too much about different things: 0 = Not at all Trouble relaxin = Not at all Being so restless that it is hard to sit still: 0 = Not at all Becoming easily annoyed or irritable: 0 = Not at all Feeling afraid as if something awful might happen: 0 = Not at all Total CONCETTA-7 score (0-4 normal; 5-9 mild; 10-14 moderate; 15-21 severe): 0 Source: Developed by Drs. Eliceo Carvalho, Yuly White, Modesto Maguire and colleagues, with an educational jl from [employer]. CONCETTA-7 Assessment Billing CONCETTA-7 Assessment Tool: CONCETTA-7 Assessment 88254 Review of Systems Const Denies chills and Denies fever(s) ENT Denies epistaxis and Denies nasal discharge Card Denies chest pain Resp Denies chest congestion, Denies cough and Denies hemoptysis GI Denies diarrhea and Denies nausea Skin/Breast Denies rash Neuro Reports no additional complaints Psych Reports no additional complaints Endo Reports no additional complaints Physical exam (Primary Care) Vital Signs: Last Vital Signs Pulse 70 12/30/23 09:09 BP 110/62 12/30/23 09:09 Pulse Ox 96 12/30/23 09:09 Oxygen Delivery Method Room Air 12/30/23 09:09 BMI result Body Mass Index 32.1 Tobacco/Smoking Status: Tobacco use Status Tobacco use date assessed 12/30/23 12/30/23 09:11 Patient Tobacco Use Status Former Tobacco user 12/30/23 09:11 e-Cigarette/Vaping Use Never Used 12/30/23 09:11 PHQ-9: PHQ-9 Score PHQ-9: Total score 0 12/30/23 09:30 Depression Screening Interpretation: Negative Thrive Assessment: Date of Thrive Assessment Date Thrive assessed 12/30/23 12/30/23 09:11 Currently or been in a relationship where the following occur: I choose not to answer Const General: cooperative, comfortable and no acute distress Orientation/consciousness: patient oriented x3 HENMT Head: Yes normocephalic Eyes General: appearance normal, both eyes and all related structures Neck Neck: Yes supple Resp Effort & Inspection: normal respiratory effort, no cough and no stridor Cardio Rhythm: regular rhythm Heart sounds: S1 normal heart sound present and S2 normal heart sound present Skin General skin exam: turgor normal Neuro General: patient oriented x3, tone normal and moves all extremities Extrem Right lower extremity: no edema Left lower extremity: no edema Coding Level of Care Code Est Pt Level 4 (41079) Diagnoses Pernicious anemia D51.0 Recurrent major depressive disorder, in partial remission F33.41 Active/Remission status: in partial remission 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 Class 1 obesity due to excess calories without serious comorbidity with body mass index (BMI) of 32.0 to 32.9 in adult E66.09; Z68.32 Obesity classification: adult class 1 (BMI 30 - 34.9) Serious obesity comorbidity presence: without serious comorbidity Body mass index: BMI 32.0-32.9 Vitamin D deficiency E55.9 Additional Codes CONCETTA-7 Assessment Billing - CONCETTA-7 Assessment Tool: CONCETTA-7 Assessment 56123 ([id number]) Assessment & Plan Assessment & Plan (1) Pernicious anemia: Code(s): D51.0 - Vitamin B12 deficiency anemia due to intrinsic factor deficiency Category: Medical (2) Major depression, recurrent: Code(s): F33.9 - Major depressive disorder, recurrent, unspecified Category: Medical Qualifiers: Active/Remission status: in partial remission Qualified Code(s): F33.41 - Major depressive disorder, recurrent, in partial remission (3) Recurrent cold sores: Code(s): B00.1 - Herpesviral vesicular dermatitis Category: Medical (4) Obesity due to excess calories: Code(s): E66.09 - Other obesity due to excess calories Category: Medical Qualifiers: Obesity classification: adult class 1 (BMI 30 - 34.9) Serious obesity comorbidity presence: without serious comorbidity Body mass index: BMI 32.0- 32.9 Qualified Code(s): E66.09 - Other obesity due to excess calories; Z68.32 - Body mass index [BMI] 32.0-32.9, adult (5) Vitamin D deficiency: Code(s): E55.9 - Vitamin D deficiency, unspecified Category: Medical Plan Patient is 63 year female came in today to talk about few things Patient is currently attending a weight loss program and is on set lb medication She is up to 5 mg now and was able to lose some weight Patient is tolerating medication Patient has been feeling fine now, depression has resolved She is still on Lexapro 10 mg, we talked about cutting it down to 5 mg for a month and then stopping it Recurrent cold sores, patient was treating cold sores as they appeared but now she is getting them every other month I am changing the valacyclovir to 500 mg daily B12 deficiency, patient is on B12 injections since she has had gastric bypass surgery in Requesting refill Patient have a follow-up appointment in June Medications: Changed From valacyclovir 500 mg PO BID 15 days 30 tabs 0RF To valacyclovir 500 mg PO ONCE 90 tabs 0RF 90 days Refilled cyanocobalamin (vitamin B-12) 1,000 mcg IM Q4W 4 mL 3RF 90 days
== END 2023-12-30 10:15 | disposition home or self-care (01) ==
PROVIDERS: PCP Internal Medicine; Visit Provider Internal Medicine
DX: D51.0 Vitamin B12 deficiency anemia due to intrinsic factor deficiency (principal); F33.41 Major depressive disorder, recurrent, in partial remission; B00.1 Herpesviral vesicular dermatitis; E66.09 Other obesity due to excess calories; Z68.32 Body mass index [BMI] 32.0-32.9, adult; E55.9 Vitamin D deficiency, unspecified

== ENCOUNTER → 2023-12-30 09:06 | Outpatient (BNVA) | payer OTHER, SELFPAY | PROVIDERS: PCP Internal Medicine; Visit Provider Internal Medicine | DX: D51.0 Vitamin B12 deficiency anemia due to intrinsic factor deficiency (principal); F33.41 Major depressive disorder, recurrent, in partial remission; B00.1 Herpesviral vesicular dermatitis; E66.09 Other obesity due to excess calories; Z68.32 Body mass index [BMI] 32.0-32.9, adult; E55.9 Vitamin D deficiency, unspecified; Z79.899 Other long term (current) drug therapy | CPT/HCPCS: 96127 ==

== ENCOUNTER 2024-02-02 07:00 | Day surgery (SDC) | payer OTHER, SELFPAY ==
[2024-01-31 10:19] VITALS: BMI 34.4
--- NOTE | 2024-02-01 12:01 | P.CONAN_ITS ---
Documented by User: Diana Zuñiga NP 02/01/24 12:01 HPI - Anesthesia Eval Consult details Narrative: 63yo F for Colonoscopy PMFSH Active Problems Active Problems: All Active Problems Recurrent cold sores (Acute) Colon cancer screening (Acute) Iron deficiency anemia (Chronic) Stress at home (Acute) Major depression, recurrent (Acute) Anxiety, generalized (Acute) Acute bronchitis (Acute) Herpes simplex (Acute) Vitamin D deficiency (Acute) History of gastric bypass (Acute) Pernicious anemia (Acute) Obesity due to excess calories (Acute) Encounter for general adult medical examination with abnormal findings (Acute) Past Medical History Medical History Anemia Family History Family History Sister Substance use disorder Brother NHL (non-Hodgkin's lymphoma) Brother CAD (coronary artery disease) Father CAD (coronary artery disease) Paternal Aunt Breast cancer Surgical History Surgical History H/O colonoscopy Gastric bypass status for obesity History of surgery S/P cholecystectomy Social History Social History Housing: House Patient Tobacco Use Status: Former Tobacco user e-Cigarette/Vaping Use: Never Used Use of substances other than those prescribed or required for medical reasons: No Are you DNR?: No Advance Directives: No Advance Directives Information Provided: Yes Advance Directives on File: No Recently lost weight without trying: No How much weight loss: 14-23 pounds Nutrition Risks: No Nutritional Risk Patient : No service: No Current occupational status: employed Cognitive needs: No Hearing needs: No Vision needs: Yes Meds Allergies Allergy/AdvReac Type Severity Reaction Status Date / Time Penicillins AdvReac rash Verified 12/30/23 09:09 Home Medications ?Medication ?Instructions ?Recorded ?Confirmed ?Last Taken ?Type albuterol sulfate 90 mcg/actuation 90 mcg inhalation DAILY 10/04/23 12/30/23 Unknown History aerosol inhaler inhalational spacing device #1 ea 10/04/23 12/30/23 Unknown History (ProChamber) Exam Height,Weight and Vital Signs: Height 5 ft 2 in Weight 85.275 kg Assessment and Plan Assessment Anesthesia Assessment: Chart Reviewed Documented by User: Kim Ramos MD 02/02/24 09:36 PMFSH Active Problems Active Problems: All Active Problems Recurrent cold sores (Acute) Colon cancer screening (Acute) Iron deficiency anemia (Chronic) Stress at home (Acute) Major depression, recurrent (Acute) Anxiety, generalized (Acute) Acute bronchitis (Acute) Herpes simplex (Acute) Vitamin D deficiency (Acute) History of gastric bypass (Acute) Pernicious anemia (Acute)- monthly Vit B12 injections Obesity due to excess calories (Acute) Encounter for general adult medical examination with abnormal findings (Acute) Knee injury/sprain while bowling Past Medical History Medical History Anemia Family History Family History Sister Substance use disorder Brother NHL (non-Hodgkin's lymphoma) Brother CAD (coronary artery disease) Father CAD (coronary artery disease) Paternal Aunt Breast cancer Family history of problems with anesthesia: No Surgical History Surgical History H/O colonoscopy Gastric bypass status for obesity History of surgery S/P cholecystectomy History of Problems with Anesthesia: No Social History Social History Housing: House Patient Tobacco Use Status: Former Tobacco user e-Cigarette/Vaping Use: Never Used Use of substances other than those prescribed or required for medical reasons: No Are you DNR?: No Advance Directives: No Advance Directives Information Provided: Yes Advance Directives on File: No Recently lost weight without trying: No How much weight loss: 14-23 pounds Nutrition Risks: No Nutritional Risk Patient : No service: No Current occupational status: employed Cognitive needs: No Hearing needs: No Vision needs: Yes Meds Allergies Allergy/AdvReac Type Severity Reaction Status Date / Time Penicillins AdvReac rash Verified 12/30/23 09:09 Home Medications ?Medication ?Instructions ?Recorded ?Confirmed ?Last Taken ?Type albuterol sulfate 90 mcg/actuation 90 mcg inhalation DAILY 10/04/23 12/30/23 Unknown History aerosol inhaler inhalational spacing device #1 ea 10/04/23 12/30/23 [facility] Height,Weight and Vital Signs: Height 5 ft 2 in Weight 85.275 kg Vital Signs Temp Pulse Resp BP Pulse Ox O2 Del Method 02/02/24 07:34 83 105/48 L 02/02/24 07:25 97.9 F 70 16 84/45 L 98 Room Air Airway Mallampati Class: II TM Dist: >3cm Neck ROM: Full Loose/Missing/Broken Teeth: No Heart: RRR Lungs: CTAB Assessment and Plan Assessment Anesthesia Assessment: Anesthesia Plan Discussed and Chart Reviewed Final Anesthetic Review Family History of Problems with Anesthesia: No History of Problems with Anesthesia: No NPO: Yes ASA Class: III Final Preanesthetic Review: No Changes in Pt Med Stat, Meds/Allgs Chart Reviewed, Consent Obtained/Reviewed and Anes Risks/Benef Reviewed Patient Risk: Intermediate Procedure Risk: Low Assessment/Block/Sedation in SS: Assess/Block/Sedation-SS Anesthetic Plan Anesthetic Plan: TIVA Disposition: Standard PACU
[2024-02-02 07:17] VITALS: BMI 30.1
[2024-02-02 07:25] VITALS: BP 84/45; PULSE 70; RESP 16; TEMP 36.6; O2SAT 98
[2024-02-02 07:34] VITALS: BP 105/48; PULSE 83
[2024-02-02] MEDS: Lactated Ringers 1,000 ML 100 ML IVCONT (07:41)
--- NOTE | 2024-02-02 08:05 | MHC.SHP ---
Pre-Procedural Eval Section A - 24 Hr Update-Section A only Date of Service: 02/02/24 Section B - Complete if H&P > 30 days Chief Complaint: Screening Details of Present Illness: Anemia Surgical History S/P cholecystectomy Allergies: Allergies Allergy/AdvReac Type Severity Reaction Status Date / Time Penicillins AdvReac rash Verified 12/30/23 09:09 Review of Systems Review of Systems Comment: Ten point ROS negative Exam Exam Comment: Gen appear: No acute distress HEENT: no icterus Chest: No overt resp distress Abd: soft, nontender, nondistended Psych: Stable affect, answering questions appropriately Neuro: A/Ox3 noted to move all extremities spontaneously Ext: no peripheral edema Plan Diagnosis/Plan: Unchanged I have reviewed the history and physical and performed a pertinent physical examination on my patient. No changes have occurred unless specified. Time Spent With Patient Time: Total time managing care of this patient today ____ minutes.
[2024-02-02 09:51] VITALS: BP 85/46; PULSE 82; RESP 16; TEMP 36.3; O2SAT 99
[2024-02-02 10:06] VITALS: BP 102/52; PULSE 84; RESP 16; TEMP 36.6; O2SAT 100
--- NOTE | 2024-02-02 10:46 | HO.OPN-COLON ---
Colonoscopy Operative Note Operative Note Date of Service: 02/02/24 Narrative: Procedure: Colonoscopy Indication: Anemia Endoscopist: Anayeli Montalvo MD Anesthesia Provider: Shanae Cisneros CRNA Anesthesia type: MAC Instrument: Olympus [id number]-H190L Consent: Indication, risks vs benefits, and alternatives were discussed with the patient who gave written informed consent to proceed. EKG, pulse, pulse oximetry and blood pressure were monitored throughout the procedure. Please see anesthesia flowsheet. Procedure: The patient was brought to the procedure room and placed in the left lateral decubitus position. IV medications were administered by the anesthesia provider in attendance. A digital rectal exam was performed which was normal. A distal attachment cap was affixed to the tip of the colonoscope which was then inserted through the anus and advanced through the colon to the hepatic flexure. Mucosa was carefully examined under high definition white light as the instrument was slowly withdrawn in a retrograde panoramic fashion. Retroflexion was performed in rectum. The procedure was not difficult. There were no immediate obvious complications. The quality of the prep was BBPS: N/A+1+2 = inadequate Limitations: Poor prep. Findings: Mucosa: Opaque liquid and solid stool was noted in the colon. Solid stool was impacting the hepatic flexure obscuring complete visualization. The procedure was therefore terminated. Impression: 1. Poor prep Recommendations: - Repeat colonoscopy to be booked in 6-12 months - If pt has iron deficiency anemia, consider EGD/colo for complete work up ebony given hx of RYGB and risk of marginal ulcers.
== END 2024-02-02 10:51 | disposition home or self-care (01) ==
PROVIDERS: PCP Internal Medicine; Visit Provider Internal Medicine
PROC: 0DJD8ZZ Inspection of Lower Intestinal Tract, Via Natural or Artificial Opening Endoscopic (ICD-10-PCS; CPT 45378; principal; 2024-02-02 08:40)
DX: Z12.11 Encounter for screening for malignant neoplasm of colon (principal); D50.9 Iron deficiency anemia, unspecified; E55.9 Vitamin D deficiency, unspecified; F33.9 Major depressive disorder, recurrent, unspecified; Z79.899 Other long term (current) drug therapy; Z90.49 Acquired absence of other specified parts of digestive tract; Z88.0 Allergy status to penicillin; Z98.84 Bariatric surgery status; Z98.890 Other specified postprocedural states
CPT/HCPCS: 45378; J2003; J2704

== ENCOUNTER → 2024-02-02 07:00 | Outpatient (BNV) | payer OTHER, SELFPAY | PROVIDERS: PCP Internal Medicine; Visit Provider Internal Medicine | DX: D64.9 Anemia, unspecified (principal); Z91.199 Patient's noncompliance with other medical treatment and regimen due to unspecified reason | CPT/HCPCS: 45378 ==

== ENCOUNTER 2024-06-13 14:20 | Outpatient (REF) | payer OTHER, SELFPAY ==
--- NOTE | ~2024-06-13 | XR_ITS ---
EXAMINATION: XR RIBS 3 VIEWS MINIMUM WITH CHEST RIGHT HISTORY: R07.89 - Other chest pain COMPARISON: Comparison is made with the prior examination of the chest dated 04/08/2023. FINDINGS: A single PA view of the chest and 3 views of the right ribs are submitted. There is chronic scarring on the right. There are no focal airspace opacities. There is no pleural effusion, pneumothorax, or pulmonary vascular congestion. The heart is normal in size. There is an old healed fracture of the 4th rib. There is a nondisplaced fracture of the 5th rib of indeterminate age. XR/XR ribs RT min 3V w CXR1V IMPRESSION: Nondisplaced fracture of the 5th rib, of indeterminate age. Electronically signed by: Eliceo Lamb MD 06/15/2024 08:24 AM EDT
== END 2024-06-13 14:21 | disposition home or self-care (01) ==
LOC: HO.HMGCX 14:20
PROVIDERS: PCP Internal Medicine; Visit Provider Internal Medicine
DX: Z00.01 Encounter for general adult medical examination with abnormal findings (principal); R07.89 Other chest pain; D51.0 Vitamin B12 deficiency anemia due to intrinsic factor deficiency; E55.9 Vitamin D deficiency, unspecified; F41.1 Generalized anxiety disorder; F33.41 Major depressive disorder, recurrent, in partial remission; D50.0 Iron deficiency anemia secondary to blood loss (chronic); B00.1 Herpesviral vesicular dermatitis
CPT/HCPCS: 71101; 96127

== ENCOUNTER 2024-06-13 14:20 | Outpatient (AMB) | payer OTHER, SELFPAY ==
[2024-06-13 14:30] VITALS: BP 124/66; PULSE 81; O2SAT 98; BMI 28.0
--- NOTE | 2024-06-13 14:30 | MHC.PC.OV ---
Vital Signs 06/13/24 14:30 Height 5 ft 2 in Weight 153 lb 2 oz BMI 28.0 BP 124/66 Blood Pressure Location Rt brachial Position Sitting Pulse 81 Pulse Source Pulse Oximeter Pulse Oximetry (%) 98 Oxygen Delivery Method Room Air Intake Visit Reasons: Annual PE Allergies Penicillins Adverse Reaction (Verified 06/13/24 14:32) rash Medication List - Last Reconciled 06/13/24 by Martha De La Cruz MD albuterol sulfate 90 mcg/actuation 90 mcg inhalation DAILY bisacodyl (Dulcolax (bisacodyl)) 20 mg (4 x 5 mg) PO ONCE 1 day bisacodyl (Dulcolax (bisacodyl)) 20 mg (4 x 5 mg) PO ONCE 1 day cholecalciferol (vitamin D3) 25 mcg PO DAILY 90 days cyanocobalamin (vitamin B-12) 1,000 mcg IM Q4W 90 days escitalopram oxalate (Lexapro) 10 mg PO DAILY inhalational spacing device (ProChamber) As directed lorazepam 0.5 mg PO BEDTIME PRN polyethylene glycol 3350 (Miralax) 238 grams PO ONCE 1 day syringe with needle, safety (BD Integra Syringe) Use to administer B12 injections IM valacyclovir 500 mg PO ONCE 90 days Tobacco use date assessed: 06/13/24 Dental Screening Dental Screen Date: 06/13/24 Did you have a dental visit in the last 12 months?: Yes Did you have a dental problem in the last 6 months where you did not have access to dental care?: No Was dental information given to patient?: Patient has dentist HPI Annual PE HPI Details Physical exam appointment - The patient is a 63 year old female presenting with a suspected rib fracture. Right side for the past 2 weeks after having a fall secondary to her dogs who are big in heavy - resulting in significant pain on the left side that extends to the back, particularly painful upon deep inhalation. - Similar previous experience with rib fractures occurred approximately 10 years ago. - Lack of current bone density status evaluation was noted, potentially contributing to repeated rib fractures. Patient states that it was done through her OBGYN, she will consult with them - Recent incomplete colonoscopy required rescheduling, initially performed in February but necessitating a repeat on July 24 due to inadequate preparation. - Recent blood work indicated no anemia, though low B12 levels were noted, requiring monthly intramuscular injections due to status of pernicious anemia, patient is established with Hematology - The patient has a history of gastric bypass surgery and - ongoing treatment for anxiety with Lexapro. Which is helping her - valacyclovir for recurrent cold sores patient is taking 500 mg daily Health Maintenance - Colonoscopy: Incomplete procedure in February due to inadequate bowel preparation, rescheduled for July 24. - Bone density ? Through OBGYN - mammogram through OBGYN - Monthly B12 injections for low levels. - Biometrics were done at work with reportedly good outcomes, but documentation was not reviewed. [place] [facility] - Dr. Ramirez, OBGYN at [facility] - Dr. Montalvo, [facility] - [facility] in [place] for Zepbound medication for weight loss Medications - B12 injections, monthly, for low B12 levels - Lexapro (Escitalopram) for anxiety management - Valacyclovir for cold sore prevention, daily dosage - Zepbound for weight management, dosage not clearly specified Diagnostic results - Labs: CBC in April showed no anemia; B12 levels were low. - Recent biometrics at work (results not reviewed). Patient Instructions - Return tomorrow for fasting blood tests, including kidney function, liver function, cholesterol, thyroid function, and a urine test. - Proceed with chest x-ray for suspected rib fracture. - Continue with current medications as prescribed, including B12 injections and Lexapro. - Bring biometric sheet from work for review. Review of Systems - General: No fever no chills - Neurological: No headaches no dizziness - Ear nose throat: No sore throat no hearing difficulty no ear pain - Cardiovascular: No syncope, no chest pain, no palpitations - Gastrointestinal: No nausea vomiting or diarrhea - Endocrine: No polyuria polydipsia no heat intolerance - Genitourinary: No dysuria - Skin: No new complaints Physical Exam General: Cooperative, healthy appearing, comfortable, no acute distress Orientation: Patient oriented x3 Head: Normal to inspection Ears: Within normal limit visually Nose: Normal external nose present Face and sinus: Normal facial exam Eyes: Appearance normal, extraocular movement intact pupils reactive Neck: Normal visual inspection and supple Respiratory: Normal respiratory effort, but pain on deep breath. Clear to auscultation, no stridor Chest exam: Tender over rib 4th and 5th anterior axillary line Cardiovascular: S1 and S2 regular in rate and rhythm Breast exam through OBGYN GI: Normal to inspection. Soft to palpation and nontender Skin: Turgor normal, no acute findings Neuro: Patient oriented x3, motor sensory intact, balance intact, tandem pass Extremities: Normal to inspection, [facility] Medical History Anemia Surgical History H/O colonoscopy Gastric bypass status for obesity History of surgery S/P cholecystectomy Family History Sister Substance use disorder Brother NHL (non-Hodgkin's lymphoma) Brother CAD (coronary artery disease) Father CAD (coronary artery disease) Paternal Aunt Breast cancer Social History Housing: House Patient Tobacco Use Status: Former Tobacco user e-Cigarette/Vaping Use: Never Used service: No Current occupational status: employed Cognitive needs: No Hearing needs: No Vision needs: Yes Questionnaire PHQ-9 Over the last 2 weeks, how often have you been bothered by any of the following problems? 1. Little interest or pleasure in doing things: not at all 2. Feeling down, depressed, or hopeless: not at all 3. Trouble falling or staying asleep, or sleeping too much: not at all 4. Feeling tired or having little energy: not at all 5. Poor appetite or overeating: not at all 6. Feeling bad about yourself - or that you are a failure or have let yourself or your family down: not at all 7. Trouble concentrating on things, such as reading the newspaper or watching television: not at all 8. Moving or speaking so slowly that other people could have noticed. Or the opposite - being so fidgety or restless that you have been moving around a lot more than usual: not at all 9. Thoughts that you would be better off or of hurting yourself in some way: not at all Total score: 0 Depression Screening Interpretation: Negative Depression Screening Done: Yes 86826 - PHQ-9 Billing: Yes Source: Developed by Drs. Eliceo Carvalho, Yuly White, Modesto Maguire and colleagues, with an educational jl from [employer]. Thrive Questionnaire Date Thrive assessed: 06/13/24 I am a: Patient What is your living situation today?: I have a steady place to live Within the past 12 months, did the food you bought not last and you didn't have the money to get more?: Never true Within the past 12 months, did you worry whether your food would run out before you got money to buy more?: Never true Do you have trouble paying for medicines?: No Do you have trouble getting transportation to medical appointments?: No Do you have trouble paying your heating and electricity bill?: No Do you have trouble taking care of your child, family member or friend?: No Do you have trouble with day-to-day activities such as bathing, preparing meals, shopping, managing finances, etc.?: No Are you currently unemployed and looking for a job?: No Are you interested in more education?: No Please select the resources that you would like help with: None Currently or been in a relationship where the following occur: No concerns reported THRIVE Score: 0 AUDIT C Alcohol Use Questionnaire (AUDIT-C) 1. How often do you have a drink containing alcohol?: Never 3. How often do you have six or more drinks on one occasion?: Never Total Score: 0 Score Reviewed/Action Taken: Yes CONCETTA-7 AMB Questionnaire CONCETTA-7 Date CONCETTA - 7 assessed: 06/13/24 Feeling nervous, anxious, or on edge: 0 = Not at all Not being able to stop or control worryin = Not at all Worrying too much about different things: 0 = Not at all Trouble relaxin = Not at all Being so restless that it is hard to sit still: 0 = Not at all Becoming easily annoyed or irritable: 0 = Not at all Feeling afraid as if something awful might happen: 0 = Not at all Total CONCETTA-7 score (0-4 normal; 5-9 mild; 10-14 moderate; 15-21 severe): 0 Source: Developed by Drs. Eliceo Carvalho, Yuly White, Modesto Maguire and colleagues, with an educational jl from [employer]. CONCETTA-7 Assessment Billing CONCETTA-7 Assessment Tool: CONCETTA-7 Assessment 26276 Physical exam (Primary Care) Vital Signs: Last Vital Signs Pulse 81 06/13/24 14:30 BP 124/66 04/02/25 14:30 Pulse Ox 98 06/13/24 14:30 Oxygen Delivery Method Room Air 06/13/24 14:30 BMI result Body Mass Index 28.0 Tobacco/Smoking Status: Tobacco use Status Tobacco use date assessed 06/13/24 06/13/24 14:33 Patient Tobacco Use Status Former Tobacco user 06/13/24 14:31 e-Cigarette/Vaping Use Never Used 06/13/24 14:31 PHQ-9: PHQ-9 Score PHQ-9: Total score 0 06/13/24 14:50 Depression Screening Interpretation: Negative Thrive Assessment: Date of Thrive Assessment Date Thrive assessed 06/13/24 06/13/24 14:33 Currently or been in a relationship where the following occur: No concerns reported Coding Level of Care Code Est Pt Level 3 (47089) Est Pt Prev Care 40-64y(52302) Diagnoses Encounter for general adult medical examination with abnormal findings Z00.01 Non-cardiac chest pain R07.89 Pernicious anemia D51.0 Vitamin D deficiency E55.9 Anxiety, generalized F41.1 Recurrent major depressive disorder, in partial remission F33.41 Active/Remission status: in partial remission Iron deficiency anemia due to chronic blood loss D50.0 Iron deficiency anemia type: chronic blood loss 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 Additional Codes CONCETTA-7 Assessment Billing - CONCETTA-7 Assessment Tool: CONCETTA-7 Assessment 36731 ([id number]) PHQ-9 - 94915 - PHQ-9 Billing: Yes ([id number]) Assessment & Plan Assessment & Plan (1) Encounter for general adult medical examination with abnormal findings: Code(s): Z00.01 - Encounter for general adult medical examination with abnormal findings Category: Medical (2) Non-cardiac chest pain: Code(s): R07.89 - Other chest pain Category: Medical (3) Pernicious anemia: Code(s): D51.0 - Vitamin B12 deficiency anemia due to intrinsic factor deficiency Category: Medical (4) Vitamin D deficiency: Code(s): E55.9 - Vitamin D deficiency, unspecified Category: Medical (5) Anxiety, generalized: Code(s): F41.1 - Generalized anxiety disorder Category: Medical (6) Major depression, recurrent: Code(s): F33.9 - Major depressive disorder, recurrent, unspecified Category: Medical Qualifiers: Active/Remission status: in partial remission Qualified Code(s): F33.41 - Major depressive disorder, recurrent, in partial remission (7) Iron deficiency anemia: Code(s): D50.9 - Iron deficiency anemia, unspecified Category: Medical Qualifiers: Iron deficiency anemia type: chronic blood loss Qualified Code(s): D50.0 - Iron deficiency anemia secondary to blood loss (chronic) (8) Recurrent cold sores: Code(s): B00.1 - Herpesviral vesicular dermatitis Category: Medical Plan Physical exam appointment - The patient is a 63 year old female presenting with a suspected rib fracture. Right side for the past 2 weeks after having a fall secondary to her dogs who are big in heavy - resulting in significant pain on the left side that extends to the back, particularly painful upon deep inhalation. - Similar previous experience with rib fractures occurred approximately 10 years ago. - Lack of current bone density status evaluation was noted, potentially contributing to repeated rib fractures. Patient states that it was done through her OBGYN, she will consult with them - Recent incomplete colonoscopy required rescheduling, initially performed in February but necessitating a repeat on July 24 due to inadequate preparation. - Recent blood work indicated no anemia, though low B12 levels were noted, requiring monthly intramuscular injections due to status of pernicious anemia, patient is established with Hematology - The patient has a history of gastric bypass surgery and - ongoing treatment for anxiety with Lexapro. Which is helping her - valacyclovir for recurrent cold sores patient is taking 500 mg daily Health Maintenance - Colonoscopy: Incomplete procedure in February due to inadequate bowel preparation, rescheduled for July 24. - Bone density ? Through OBGYN - mammogram through OBGYN - Monthly B12 injections for low levels. - Biometrics were done at work with reportedly good outcomes, but documentation was not reviewed. [facility] - Dr. Ramirez, OBGYN at [facility] - Dr. Montalvo, [facility] for Zepbound medication for weight loss Medications - B12 injections, monthly, for low B12 levels - Lexapro (Escitalopram) for anxiety management - Valacyclovir for cold sore prevention, daily dosage - Zepbound for weight management, dosage not clearly specified Diagnostic results - Labs: CBC in April showed no anemia; B12 levels were low. - Recent biometrics at work (results not reviewed). Patient Instructions - Return tomorrow for fasting blood tests, including kidney function, liver function, cholesterol, thyroid function, and a urine test. - Proceed with chest x-ray for suspected rib fracture. - Continue with current medications as prescribed, including B12 injections and Lexapro. - Bring biometric sheet from work for review. Orders: Orders [facility]. Panel Fast Today B00.1 - Herpesviral vesicular dermatitis, D50.0 - Iron deficiency anemia secondary to blood loss (chronic), D51.0 - Vitamin B12 deficiency anemia due to intrinsic factor deficiency, E55.9 - Vitamin D deficiency, unspecified, F33.41 - Major depressive disorder, recurrent, in partial remission, F41.1 - Generalized anxiety disorder, Z00.01 - Encounter for general adult medical examination with abnormal findings XR ribs RT min 3V w CXR1V Today R07.89 - Other chest pain Lipid Panel Today B00.1 - Herpesviral vesicular dermatitis, D50.0 - Iron deficiency anemia secondary to blood loss (chronic), D51.0 - Vitamin B12 deficiency anemia due to intrinsic factor deficiency, E55.9 - Vitamin D deficiency, unspecified, F33.41 - Major depressive disorder, recurrent, in partial remission, F41.1 - Generalized anxiety disorder, Z00.01 - Encounter for general adult medical examination with abnormal findings TSH reflex Free T4 Today B00.1 - Herpesviral vesicular dermatitis, D50.0 - Iron deficiency anemia secondary to blood loss (chronic), D51.0 - Vitamin B12 deficiency anemia due to intrinsic factor deficiency, E55.9 - Vitamin D deficiency, unspecified, F33.41 - Major depressive disorder, recurrent, in partial remission, F41.1 - Generalized anxiety disorder, Z00.01 - Encounter for general adult medical examination with abnormal findings UA CC w/rflx Micro + Cult Today B00.1 - Herpesviral vesicular dermatitis, D50.0 - Iron deficiency anemia secondary to blood loss (chronic), D51.0 - Vitamin B12 deficiency anemia due to intrinsic factor deficiency, E55.9 - Vitamin D deficiency, unspecified, F33.41 - Major depressive disorder, recurrent, in partial remission, F41.1 - Generalized anxiety disorder, Z00.01 - Encounter for general adult medical examination with abnormal findings Ferritin Today B00.1 - Herpesviral vesicular dermatitis, D50.0 - Iron deficiency anemia secondary to blood loss (chronic), D51.0 - Vitamin B12 deficiency anemia due to intrinsic factor deficiency, E55.9 - Vitamin D deficiency, unspecified, F33.41 - Major depressive disorder, recurrent, in partial remission, F41.1 - Generalized anxiety disorder, Z00.01 - Encounter for general adult medical examination with abnormal findings Medications: Changed From escitalopram oxalate (Lexapro) Half tablet for a week and then full tablet 10 mg PO DAILY 90 tabs 0RF To escitalopram oxalate (Lexapro) 10 mg PO DAILY 90 tabs 1RF Refilled escitalopram oxalate (Lexapro) Half tablet for a week and then full tablet 10 mg PO DAILY 90 tabs 0RF valacyclovir 500 mg PO ONCE 90 days 90 tabs 0RF valacyclovir 500 mg PO ONCE 90 days 90 tabs 1RF Discontinued lorazepam To sleep at night Discontinued Reason: Doctor's Order 0.5 mg PO BEDTIME PRN 30 tabs 0RF Difficulty sleeping
--- OUTSIDE RECORDS SUMMARY | 2024-06-13 17:08 | XMS_ITS | Encounter Summary ---
Author Organization [facility] Address [address] [place] [id number] Care Team Providers Care Scullion Chief Name Role Phone Tracey Spear CLINIC LICENSED PRACTICAL NURSE Primary Care Provider [phone] Andra Ramirez MD Unavailable [phone] Encounter Details Date Type Department Care Team (Late st Contact Info) Description 04/09/2021 Scanned Document [address] [phone] Tracey Spear, CLINIC LICENSED PRACTICAL NURSE [address] [place] [id number] Social History Tobacco Use Types Packs/Day Years Used Date Smoking Tobacco: Former Cigarettes 0.5 12 1 03/14/1976 - 01/12/1989 Smokeless Tobacco: Never Alcohol Use Standard Drinks/Week Comments No 0 (1 standard drink = 0.6 oz pur e alcohol) AUDIT-C Answer Date Recorded Frequency of Alcohol Consumption Never 11/03/2017 Average Number of Drinks Not on file 018 Frequency of Binge Drinking Not on file 10/13 PHQ-2 Answer Date Recorded PHQ-2 Total Score 0 09/19/2020 Sex and Gender Information Value Date Recorded Sex Assigned at Not on file Gender Identity Female 05/22/2021 6:42 AM EST Sexual Orientation Heterosexual (straight) 05/22 6:42 AM EST documented as of this encounter Plan of Treatment Not on file documented as of this encounter Visit Diagnoses Not on filedocumented in this encounter Care Teams Scullion Chief Relationship Specialty Start Date End Date Tracey Spear APRN PCP - General Family Medicine 09/30/17 06/10/22 Andra Ramirez MD [address] [facility] [address] [place] [address] Referring Provider Gynecology 09/19/20 documented as of this encounter
--- OUTSIDE RECORDS SUMMARY | 2024-06-13 17:08 | XMS_ITS | Encounter Summary ---
Author Organization [facility] Address [address] [place] [address] Care Team Providers Care Director Of Housing And Energy Services Name Role Phone Tracey Spear APRN Primary Care Provider [phone] Andra Ramirez MD Unavailable [phone] Reason for Visit * Reason Comments Medication Refill Encounter Details Date Type Department Care Team (Late st Contact Info) Description 03/15/2021 Refill [facility] [address] [place] [phone] Tracey Spear, TRAINING PROJECT MANAGER [address], [place] [id number] Morbid obesity with BMI of 40.0-44.9, adult (HCC) Social History Tobacco Use Types Packs/Day Years [...] Orientation Heterosexual (straight) 05/22 6:42 AM EST COVID-19 Exposure Response Date Recorded In the last month, have you been in contact with someone who was confirmed or suspected to have Coronavirus / COVID-19? No / Unsure 03/09/2021 4:14 PM EST documented as of this encounter Plan of Treatment Not on file documented as of this encounter Visit Diagnoses Diagnosis Morbid obesity with BMI of 40.0-44.9, adult (HCC) documented in this encounter Care Teams Director Of Housing And Energy Services Relationship Specialty Start Date End Date Tracey Spear APRN PCP - General Family Medicine 09/30/17 06/10/22 Andra Ramirez MD [address] [place] [address] Referring Provider Gynecology 09/19/20 documented as of this encounter
--- OUTSIDE RECORDS SUMMARY | 2024-06-13 17:08 | XMS_ITS | Clinical Summary ---
Author Organization [facility] Address [address] [place] [address] Care Team Providers Care Food Preparation Supervisor Name Role Phone Andra Ramirez MD Unavailable [phone] Allergies Active Allergy Reactions Criticality Noted Date Comments Penicillins Rash/Dermatitis Low 11/18/2016 Medications Medication Sig Dispensed Refills Start Date End Date Status ergocalciferol (ERGOCALCIFEROL) 23964 units capsuleIndication s:Vitamin D deficiency Take 1 capsule (50,000 Units total) by mouth once a week. 12 capsule 1 05/08/2018 Active clobetasol (TEMOVATE) 0.05 % ointment APPLY TOPICALLY TO THE AFFECTED AREA 1 TIME A WEEK 07/28/2020 Active Insulin Pen Needle 31G X 5 MM MiscIndications:M orbid obesity with BMI of 40.0-44.9, adult (HCC) Inject 1.8 mg of saxenda daily subcutaneous E66.01 100 pen needle 1 09/03/2020 Active ferrous sulfate 220 mg/5 mL solutionIndicatio ns:Iron deficiency anemia, unspecified iron deficiency anemia type Take 7.4 mL (325 mg total) by mouth 3 (three) times a day. TAKE 1 1/2 TSP. TID 666 mL 1 12/02/2020 Active valACYclovir (VALTREX) 1000 MG tabletIndications :Herpes labialis TAKE 2 TABLETS BY MOUTH TWICE DAILY 30 tablet 02/26/2021 Active doxycycline (VIBRA-TABS) 100 MG tablet Take 100 mg by mouth 2 (two) times a day. for 10 days 03/01/2021 Active buPROPion (WELLBUTRIN XL) 150 MG 24 hr tabletIndications :Class 3 severe obesity due to excess calories without serious comorbidity with body mass index (BMI) of 40.0 to 44.9 in adult (HCC),Depressed mood Take 1 tablet (150 mg total) by mouth every morning. Swallow whole; do not crush, chew, or divide. 90 tablet 1 03/09/2021 Active cyanocobalamin (VITAMIN B-12) 1000 MCG/ML injectionIndicati ons:Vitamin B12 deficiency Inject 1 mL (1,000 mcg total) under the skin every 30 days (once a month). 30 mL 1 07/09/2021 Active Insulin Syringe-Needle U-100 25G X 1 1 ML MiscIndications:V itamin B12 deficiency Inject 1000 mcg of vit b12 IM monthly 12 each 1 07/13/2021 Active cholecalciferol (CHOLECALCIFEROL) 1.25 MG (84949 UT) capsuleIndication s:Vitamin D deficiency TAKE 1 CAPSULE BY MOUTH 1 TIME A WEEK 12 capsule 1 12/17/2021 Active Hospital, Clinic, or Other Facility Administered Medication Ordered Dose Route Frequency Start Date End Date Status cyanocobalamin (VITAMIN B-12) injection 1,000 mcgIndications:Vitamin B12 deficiency 1000 mcg IM Every 30 days 09/19/2020 Active Active Problems Problem Noted Date Diagnosed Date Morbid obesity 07/09/2021 Herpes labialis 08/11/2018 Plantar fasciitis, right 03/21/2018 Plantar fasciitis of left foot 12/13/2016 Calcaneal bursitis (heel), right 12/13/2016 Resolved Problems Problem Noted Date Diagnosed Date Resolved Date Right foot pain 03/21/2018 09/19/2020 Pain of left heel 12/13/2016 09/19/2020 Immunizations Name Administration Dates Next Due Covid-19 MRNA Vaccine - Pfiz er 12+ (Purple Cap) 02/01/2021,06/24/2020,06/03/2020 Influenza (AFLURIA/FLUZONE) Inactivated/Split Quadrivalent with Preservative IM 01/14/2010 Influenza Inactivated/Split Preservative Free IM 03/09/2021,01/08/2020 Pneumococcal Polysaccharide 23-Valent 01/14/2010 Family History Medical History Relation Name Comments Heart attack Brother KUN Prostate cancer Father Diabetes Mother Heart disease Mother Heart disease Sister BRIDGETTE Relation Name Status Comments Brothomero TRISTAN Father Mother Sister BRIDGETTE Alive Social History Tobacco Use Types Packs/Day Years Used Date Smoking Tobacco: Former Cigarettes 0.5 12 1 03/14/1976 - 01/12/1989 Smokeless Tobacco: Never Tobacco Cessation:Counseling Given: No Alcohol Use Standard Drinks/Week Comments No 0 [...] Orientation Heterosexual (straight) 05/22 6:42 AM EST Last Filed Vital Signs Vital Sign Reading Time Taken Comments Blood Pressure 143/62 07/09/2021 4:18 PM EDT Pulse 80 07/09/2021 4:18 PM EDT Temperature 36.7 ??C (98 ??F) 07/09/2021 4:18 PM EDT Respiratory Rate 16 03/09/2021 4:23 PM EST Oxygen Saturation 98% 03/09/2021 4:23 PM EST Inhaled Oxygen Concentration - - Weight 103 kg (228 lb) 07/09/2021 4:18 PM EDT Height 157.5 cm (5' 2 ) 03/09/2021 4:23 PM EST Body Mass Index 41.7 03/09/2021 4:23 PM EST Plan of Treatment Health Maintenance Due Date Last Done Comments DTaP/Tdap/Td Vaccines (1 - Tdap) 07/08/1979 Mammogram 2000 Zoster (Shingles) Vaccine (1 of 2) 2010 Pneumococcal Vaccines 50+ (2 of 2 - PCV) 01/14/2011 01/14/2010 RSV Vaccine 60 years and older and Patients (1 - Risk 60-74 years 1-dose series) 2020 Pap Smear (Ages 21-65) 09/21/2021 9, 09/19/2018 (Previously Completed) Lipid Panel 06/26/2022 06/26/2021, 11/12, 09/13/2020, Additional history exists Influenza Vaccine 10/13/2023 03/09/2021, , 01/14/2010 COVID-19 Vaccine ( season) 2023 02/01/2021, 06/24/2020, 06/03/2020 FIT-DNA COLOGUARD 04/09/2024 04/09/2021 Pneumococcal Vaccine: Pediatric (0-5 Years) and At-Risk Patients (6 to 49 Years) Aged Out 01/14/2010 No longer eligible based on patient's age to complete this topic Hepatitis C Virus Screening Completed 06/26/2021, 11/25/2020 HIV Screening Discontinued Hepatitis B Vaccines Aged Out No long er eligible based on patient's age to complete this topic Procedures Procedure Name Priority Date/Time Associated Diagnosis Comments LIPID PANEL REFLEX DIRECT LDL Routine 06/26/2021 7:41 AM EDT Morbid obesity (HCC) HEPATITIS C VIRUS (HCV) ANTIBODY Routine 06/26/2021 7:39 AM EDT Encounter for hepatitis C screening test for low risk patient PATHOLOGY GYNECOLOGY Routine 09/21/2018 from Last 3 Months or Most Recently Relevant to Health Maintenance Results * (ABNORMAL) Lipid Panel Reflex Direct LDL (06/26/2021 7:41 AM EDT) Cholesterol, Total 117 <200 mg/dL [facility] Cholesterol, HDL 42(L) > OR = 50 mg/dL [facility] Triglycerides 58 <150 mg/dL [facility] LDL Cholesterol 62 mg/dL (calc) [facility] Comment: Reference range: <100 Desirable range <100 mg/dL for primary prevention; ?? <70 mg/dL for patients with CHD or diabetic patients with > or = 2 CHD risk factors. LDL-C is now calculated using the Bonnie calculation, which is a validated novel method providing better accuracy than the Friedewald equation in the estimation of LDL-C. Alejo SS et al. KANDY. 2013;310(19): 2054-0885 (http://education.[employer].com/faq/KNI523) Cholesterol/HDL Ratio 2.8 <5.0 (calc) [facility] Non HDL Chol. (LDL+VLDL) 75 <130 mg/dL (calc) [facility] Comment: For patients with diabetes plus 1 major ASCVD risk factor, treating to a non-HDL-C goal of <100 mg/dL (LDL-C of <70 mg/dL) is considered a therapeutic option. Blood specimen (specimen) 06/26/2021 7:41 AM EDT 06/26/2021 7:41 AM EDT Narrative [employer] - 06/27/2021 1:38 AM EDT FASTING:YES FASTING: YES Tracey Spear APRN LAB BLOOD ORDERAB LES Performing Organization Address [facility] Co de Phone Number [employer] [address] [place] [address], [place] [address] * Hepatitis C Antibody (06/26/2021 7:39 AM EDT) Hepatitis C Antibody NON-REACT NEAL NON-REACT NEAL [facility] Hepatitis C Antibody (s/co) 0.14 <1.00 [facility] Comment: HCV antibody was non-reactive. There is no laboratory evidence of HCV infection. In most cases, no further action is required. However, if recent HCV exposure is suspected, a test for HCV RNA (test code 33768) is suggested. For additional information please refer to http://[employer]/faq/QIP14y3 (This link is being provided for informational/ educational purposes only.) Blood specimen (specimen) Blood specimen / Unknown 06/26/2021 7:39 AM EDT 06/26/2021 7:40 AM EDT Narrative [facility] - 06/27/2021 2:06 AM EDT FASTING:YES FASTING: YES Tracey Spear APRN LAB BLOOD ORDERAB LES Performing Organization Address City/[facility]/ZIP Co de Phone Number [employer] [address] [place] [address], [place] [address] * PATHOLOGY GYNECOLOGY (09/21/2018) External Provider MD CLARK HX PATH PROCEDU RES from Last 3 Months or Most Recently Relevant to Health Maintenance Care Teams Food Preparation Supervisor Relationship Specialty Start Date End Date Andra Ramirez MD [address] [place], [place] [id number] Referring Provider Gynecology 09/19/20
--- OUTSIDE RECORDS SUMMARY | 2024-06-13 17:08 | XMS_ITS | Encounter Summary ---
Author Organization [facility] Address [address] [place] [address] Care Team Providers Care Meat Service Team Member Name Role Phone Tracey Spear KIESELGUHR REGENERATOR OPERATOR Primary Care Provider [phone] Andra Ramirez MD Unavailable [phone] Encounter Details Date Type Department Care Team (Late st Contact Info) Description 01/01/2021 Scanned Document [address] [phone] Tracey Spear, KIESELGUHR REGENERATOR OPERATOR [address] [place] [address] Social History Tobacco Use Types Packs/Day Years [...] have Coronavirus / COVID-19? No / Unsure 12/08/2020 3:30 PM EDT documented as of this encounter Plan of Treatment Not on file documented as of this encounter Visit Diagnoses Not on filedocumented in this encounter Care Teams Meat Service Team Member Relationship Specialty Start Date End Date Tracey Spear APRN PCP - General Family Medicine 09/30/17 06/10/22 Andra Ramirez MD [address] [facility] [address] [place] [address] Referring Provider Gynecology 09/19/20 documented as of this encounter
--- OUTSIDE RECORDS SUMMARY | 2024-06-13 17:08 | XMS_ITS | Patient Health Record ---
Author Organization [facility] Address [address] [facility] [address] [place] [address] Care Team Providers Care Youth Services Librarian Name Role Phone SHADE MELENDEZ Primary Care Provider Andra Farooq Unavailable [phone] Allergies Allergen (clinical drug ingredient) Drug/Non Drug Allergy documented on EMR Reaction Allergy Type Onset Date Status Penicillin Unknown Drug Allergy Active Reason For Referral No Information Medications Medication SIG (Take, Route, Frequency, Duration) Notes Start Date End Date Status Clobetasol Propionate 0.05 % 1 application to affected area Externally once a night x 1month then thrice a week for 90 days 02/23/2024 Active Estradiol Vaginal Cream 0.01% 1 Gram to the affected area Vulva Twice a week for 90 days 02/23/2024 Active Zepbound 5 MG/0.5ML 0.5 mL Subcutaneous Once a week Active Probiotic - as directed Orally Active valACYclovir HCl 1 GM 1 tablet Orally On ce a day for 1 days Active Cyanocobalamin 1000 MCG/ML Injection for 90 Active Social History Tobacco Use: Social History Observation Description Date Details (start date - stop date) Former Smoker NA - NA AUDIT-C (Standard) Question Answer Notes Did you have a drink containing alcohol in the p ast year? No Points 0 Interpretation Negative Tobacco Control (Standard) Question Answer Notes Tobacco use: Former smoker How long has it been since you last smoked? Grea ter than 10 years Problems Problem Type SNOMED Code ICD Code Onset Dates Problem Status W/U Status Risk Notes Problem Postmenopausal atrophic vaginitis (48574847) Postmenopausal atrophic vaginitis (N95.2) Active confirmed Problem Morbid obesity (disorder) (358558546) Morbid (severe) obesity due to excess calories (E66.01) Active confirmed Problem Localized morphea (096862966) 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) Active confirmed Problem Atrophy of vulva (422590151) Atrophy of vulva (N90.5) Active confirmed Problem Vitamin D deficiency (99890195) Vitamin D deficiency, unspecified (E55.9) Active confirmed Problem Menopausal symptom (37675130) Symptomatic menopausal or female climacteric states (627.2) Active confirmed Major Problem Postmenopausal atrophic vaginitis (88540740) Postmenopausal atrophic vaginitis (627.3) Active confirmed Diag Problem Gynecological examination normal (235290976921106) Routine gynecological examination (V72.31) Active confirmed Problem Screening for malignant neoplasm of colon (285580479) Special screening for malignant neoplasms, colon (V76.51) Active confirmed Major Vital Signs Temperature 97.5 degrees Fahrenheit 04/06/2024 Blood pressure diastolic 64 mm Hg 04/06/2024 Height 62 in 04/06/2024 Blood pressure systolic 98 mm Hg 04/06/2024 Weight 156 lbs 04/06/2024 BMI 28.53 kg/m2 04/06/2024 Encounters Encounter Location Date Provider Diagnosis [facility] [address] [place] [address] 02/23/2024 Andra Ramirez Encounter for gynecological examination (general) (routine) without abnormal findings Z01.419 ; Encounter for screening mammogram for malignant neoplasm of breast Z12.31 ; Lichen sclerosus et atrophicus L90.0 ; Atrophy of vulva N90.5 ; Postmenopausal atrophic vaginitis N95.2 and Other specified disorders of bone density and structure, multiple sites M85.89 [facility] [address] [place] [address] 04/06/2024 Andra Ramirez Lichen sclerosus et atrophicus L90.0 Assessments Encounter Date Diagnosis (ICD Code) Assessment Notes Treatment Notes Treatment Clinical Notes Section Notes 02/23/2024 Encounter for gynecological examination (general) (routine) without abnormal findings (ICD-10 - Z01.419) NO PAP TEST, DUE IN 2024. 04/06/2024 Lichen sclerosus et atrophicus (ICD-10 - L90.0) SHOWED PAT AREA OF CONCERN USING A HAND MIRROR. APPLY CLOBETASOL OINTMENT ONCE NIGHTLY FOR ANOTHER MONTH, THEN THRICE A WEEK FOR A MONTH, THEN TWICE WEEKLY. THIS WILL BE HER MAINTENANCE DOSE. DO NOT GO LESS THAN APPLYING THE MEDICATION TWICE WEEKLY. CHECK VULVA MONTHLY AND INCREASE OR DECREASE DOSE NEEDED. 02/23/2024 Encounter for screening mammogram for malignant neoplasm of breast (ICD-10 - Z12.31) REGULAR MAMMOGRAMS AND SBE'S WERE RECOMMENDED. 02/23/2024 Lichen sclerosus et atrophicus (ICD-10 - L90.0) SHOWED PAT RECURRENCE OF LESIONS USING A HAND MIRROR. EMPHASIZED THE NEED FOR THE PAT TO TAKE THIS DISEASE SERIOUSLY AND TO FOLLOW INSTRUCTIONS CLOSELY. RX AND DETAILED INSTRUCTIONS FOR CLOBETASOL OINTMENT WERE GIVEN. 02/23/2024 Atrophy of vulva (ICD-10 - N90.5) DISCUSSED TX OPTIONS FOR VULVAR ATROPHY. RX AND INSTRUCTIONS FOR ESTRADIOL CREAM WERE GIVEN. 02/23/2024 Postmenopausal atrophic vaginitis (ICD-10 - N95.2) DISCUSSED NEED FOR ESTROGEN INTRAVAGINALLY. RX AND INSTRUCTIONS FOR INTRAVAGINAL ESTROGEN WERE GIVEN. 02/23/2024 Other specified disorders of bone density and structure, multiple sites (ICD-10 - M85.89) DISCUSSED HER LAST BMD AND SEVERE OSTEOPENIA AND ITS IMPACT ON HER HEALTH. ADEQUATE CALCIUM AND VIT D. WEIGHT BEARING EXERCISES. REPEAT BMD THIS YEAR. Plan Of Treatment Pending Test Test Name Order Date DEXA 05/02/2014 MAMMOGRAM, SCREENING 05/02/2014 MAMMOGRAM, SCREENING 10/10/2020 MAMMOGRAM, SCREENING 12/17/2022 MAMMOGRAM, SCREENING 02/23/2024 Urinalysis 12/07/2021 Urinalysis 08/25/2017 Urinalysis 09/19/2018 Urinalysis 02/23/2024 25OH VITAMIN D 11/24/2016 25OH VITAMIN D 10/05/2016 N-TELOPEPTIDE CROSS 10/05/2016 TSH 10/05/2016 BONE DENSITY 10/08/2019 BONE DENSITY 10/10/2020 BONE DENSITY 12/07/2021 MM Digital Mammo Screening 12/07/2021 MM Digital Mammo Screening 10/10/2020 MM Digital Mammo Screening 12/17/2022 MM Digital Mammo Screening 02/23/2024 Next Appt Details Provider Name:Andra elizabeth, 07/27/2024 02:40:00 PM, [address], [address], [place], [address], Provider Name:Andra elizabeth, 02/28/2025 03:00:00 PM, [address], [address], [place], [address], Insurance Providers Payer Name Payer Address Payer Phone Subscriber Number Group Number Insured Name Patient Relationship to Insured Coverage Start Date Coverage End Date [employer] [address] [place] [address] [id number] ADRIAN GOODMAN Self - patient is the insured Medical (General) History Medical History History ICD Code Postmenopausal atrophic vaginitis N95.2 Menopausal and female climacteric states N95.1 Lichen sclerosus et atrophicus L90.0 Unspecified urinary incontinence R32 Vitamin D deficiency, unspecified E55.9 Morbid (severe) obesity due to excess ca lories E66.01 Disorder of bone density and structure, unspecified M85.9 Atrophy of vulva N90.5 Other specified disorders of bone densit y and structure, multiple sites M85.89 Surgical History Surgery Date(Month/Year) Bilateral Tubal Ligation Section x 3 Cholecystectomy Gastric Bypass Colonoscopy 2006 Vulvar Biopsy - Lichen Sclerosus 2017 Hospitalization History Reason Date(Month/Year) See Surgical Hx
--- OUTSIDE RECORDS SUMMARY | 2024-06-13 17:08 | XMS_ITS | Encounter Summary ---
Author Organization [facility] Address [address] [place] [address] Care Team Providers Care Residential Youth Counselor Name Role Phone Tracey Spear ELECTROMAGNET CRANE OPERATOR Primary Care Provider [phone] Andra Ramirez MD Unavailable [phone] Encounter Details Date Type Department Care Team (Late st Contact Info) Description 01/19/2021 Scanned Document [address] [phone] Tracey Spear, ELECTROMAGNET CRANE OPERATOR [address] [place] [address] Social History Tobacco Use Types Packs/Day Years [...] on filedocumented in this encounter Care Teams Residential Youth Counselor Relationship Specialty Start Date End Date Tracey Spear APRN PCP - General Family Medicine 09/30/17 06/10/22 Andra Ramirez MD [address] [facility] [address] [place] [address] Referring Provider Gynecology 09/19/20 documented as of this encounter
--- OUTSIDE RECORDS SUMMARY | 2024-06-13 17:08 | XMS_ITS | Encounter Summary ---
Author Organization [facility] Address [address] [place] [address] Care Team Providers Care Radiography Technician Name Role Phone Tracey Spear PRE ALGEBRA TEACHER Primary Care Provider [phone] Tracey Spear PRE ALGEBRA TEACHER Unavailable [phone] Andra Ramirez MD Unavailable Encounter Details Date Type Department Care Team (Late st Contact Info) Description 09/03/2020 Telephone [facility] [address] [place] [address] Tracey Spear, PRE ALGEBRA TEACHER [address] [place], [place] [id number] Social History Tobacco Use Types Packs/Day Years [...] of Binge Drinking Not on file 10/13 Sex and Gender Information Value Date Recorded Sex Assigned at Not on file Gender Identity Female 05/22/2021 6:42 AM EST Sexual Orientation Heterosexual (straight) 05/22 6:42 AM EST COVID-19 Exposure Response Date Recorded In the last month, have you been in contact with someone who was confirmed or suspected to have Coronavirus / COVID-19? No / Unsure 08/19/2020 1:09 PM EDT documented as of this encounter Miscellaneous Notes * Telephone Encounter - Estephanie Chaidez - 09/04/2020 3:41 PM EDT PA APPROVED * Telephone Encounter - Tracey Spear APRN - 09/04/2020 3:10 PM EDT Resent with the right dose * Telephone Encounter - Estephanie Chaidez - 09/03/2020 4:35 PM EDT PER INSURANCE PT'S RX FOR SAXENDA SHOULD WRITTEN FOR 45ML (3 BOXES) FOPR 90 DAYS SUPPLY. documented in this encounter Plan of Treatment Not on file documented as of this encounter Visit Diagnoses Not on filedocumented in this encounter Care Teams Radiography Technician Relationship Specialty Start Date End Date Tracey Spear APRN PCP - General Family Medicine 09/30/17 06/10/22 Tracey Spear APRN [facility] [place] [address] PCP - [employer] Attributed 02/12/20 10/11/20 Andra Ramirez MD [address] [place] [address] Referring Provider Gynecology 09/19/20 documented as of this encounter
--- OUTSIDE RECORDS SUMMARY | 2024-06-13 17:08 | XMS_ITS | Encounter Summary ---
Author Organization [facility] Address [address] [place] [address] Care Team Providers Care Supervisory Air Intercept Controller Name Role Phone Tracey Spear PRESCHOOL SUBSTITUTE TEACHER Primary Care Provider [phone] Tracey Spear APRN Unavailable Andra Ramirez MD Unavailable Encounter Details Date Type Department Care Team (Late st Contact Info) Description 10/08/2020 Documentation [facility] [address] [facility] [address] [place] [address] Estephanie Chaidez [place] [address] [place], [place] [address] Social History Tobacco Use Types Packs/Day Years [...] on filedocumented in this encounter Care Teams Supervisory Air Intercept Controller Relationship Specialty Start Date End Date Tracey Spear APRN PCP - General Family Medicine 09/30/17 06/10/22 Tracey Spear APRN [address] [place] [address] PCP - [employer] Attributed 02/12/20 10/11/20 Andra Ramirez MD [address] [facility] [address] [place] [address] Referring Provider Gynecology 09/19/20 documented as of this encounter
--- OUTSIDE RECORDS SUMMARY | 2024-06-13 17:08 | XMS_ITS | Encounter Summary ---
Author Organization [facility] Address [address] [place] [address] Care Team Providers Care Heel Dipper Name Role Phone Tracey Spear MIRROR SILVERER Primary Care Provider [phone] Tracey Spear MIRROR SILVERER Unavailable [phone] Andra Ramirez MD Unavailable Reason for Visit * Reason Comments Medication Refill Encounter Details Date Type Department Care Team (Late st Contact Info) Description 03/04/2020 [facility] [address] [place] [phone] Tracey Spear, MIRROR SILVERER [address] [place] [address] Herpes labialis Social History Tobacco Use Types Packs/Day Years [...] as of this encounter Visit Diagnoses Diagnosis Herpes labialis Herpes simplex without mention of complication documented in this encounter Care Teams Heel Dipper Relationship Specialty Start Date End Date Tracey Spear APRN PCP - General Family Medicine 09/30/17 06/10/22 Tracey Spear APRN [address] [place] [address] PCP - [employer] Attributed 02/12/20 10/11/20 Andra Ramirez MD [address] [facility] [address] [place] [address] Referring Provider Gynecology 09/19/20 documented as of this encounter
--- OUTSIDE RECORDS SUMMARY | 2024-06-13 17:09 | XMS_ITS | Encounter Summary ---
Author Organization [facility] Address [address] [place] [address] Care Team Providers Care Mandarin Chinese Teacher Name Role Phone Tracey Spear SAP ADMINISTRATOR Primary Care Provider [phone] Trcaey Spear SAP ADMINISTRATOR Unavailable [phone] Andra Ramirez MD Unavailable Reason for Visit * Reason Comments Other Encounter Details Date Type Department Care Team (Late st Contact Info) Description 10/02/2020 Telephone [facility] [address] [place] [address] Tracey Spear, SAP ADMINISTRATOR [address] [place] [address] Other Social History Tobacco Use Types Packs/Day Years [...] AM EST documented as of this encounter Miscellaneous Notes * Telephone Encounter - Tracey Spear APRN - 10/03/2020 10:22 AM EDT Order clarified to 1.8 mg documented in this encounter Plan of Treatment Not on file documented as of this encounter Visit Diagnoses Not on filedocumented in this encounter Care Teams Mandarin Chinese Teacher Relationship Specialty Start Date End Date Tracey Spear APRN PCP - General Family Medicine 09/30/17 06/10/22 Tracey Spear APRN [address] [place] [address] PCP - [employer] Attributed 02/12/20 10/11/20 Andra Ramirez MD [address] [facility] [address] [place] [address] Referring Provider Gynecology 09/19/20 documented as of this encounter
--- OUTSIDE RECORDS SUMMARY | 2024-06-13 17:09 | XMS_ITS ---
Author Organization [facility] Address [address] [address] Care Team Providers Care Sports Statistician Name Role Phone SHADE MELENDEZ Primary Care Provider Andra Farooq [phone] REASON FOR VISIT Annual (YELLOW FORM DONE) Encounters Encounter Location Date Provider Diagnosis [facility] [address] [address] 12/23/2023 Andra Ramirez Plan Of Treatment Next Appt Details Provider Name:Andra elizabeth, 07/27/2024 02:40:00 PM, [address] [place] [address], [address], [place], [address], Provider Name:Andra elizabeth, 02/28/2025 03:00:00 PM, [address] [place] [address], [address], [place], [address], Progress Notes * ADRIAN GOOMDANDOB: (63 yo F)Acc No.[id number]:12/23/2023 PROGRESS NOTES Patient:?ADRIAN GOODMAN Appointment Provider:?Andra elizabeth M.D. :1960???Age:63 Y???Sex:Female D ate:12/23/2023 Address:[address] [place] [address] Pcp:SHADE MELENDEZ Subjective: * Chief Complaints: * ???1. Annual (YELLOW FORM DO NE). * Medical History:? Objective: * Vitals:? Assessment: Plan: * Treatment: * Images: Billing Information: * Visit Code:? * Procedure Codes:? * Electronic signature of Ann Marie Ramirez MD on 06/13/2024 at 05:08 PM EDT Sign off status: Pending * Appointment Provider:?Andra Ramirez M.D. Date:?12/23/2023 Generated for Mundo mart/Brent/Jeffreysmitting on:?06/13/2024 05:08 PM EDT
--- OUTSIDE RECORDS SUMMARY | 2024-06-13 17:09 | XMS_ITS ---
Author Organization [facility] Address [address] [address] Care Team Providers Care Drilling Field Professional Name Role Phone AL ZAKAxel Primary Care Provider Andra Farooq Unavailable [phone] Allergies Allergen (clinical drug ingredient) Drug/Non Drug Allergy documented on EMR Reaction Allergy Type Onset Date Status Penicillin Unknown Drug Allergy Active REASON FOR VISIT MEDICATION F/U Medications Medication SIG (Take, Route, Frequency, Duration) [...] has it been since you last smoked? Gennaro ter than 10 years Vital Signs Temperature 97.5 degrees Fahrenheit 04/06/19 25 Blood pressure systolic 98 mm Hg 04/06/19 25 Blood pressure diastolic 64 mm Hg 025 Height 62 in 04/06/2024 Weight 156 lbs 04/06/2024 BMI 28.53 kg/m2 04/06/2024 Encounters Encounter Location Date Provider Diagnosis [address] [address] 04/06/2024 Andra Ramirez Lichen sclerosus et atrophicus L90.0 Assessments Encounter Date Diagnosis (ICD Code) Assessment Notes Treatment Notes Treatment Clinical Notes Section Notes 04/06/2024 Lichen sclerosus et atrophicus (ICD-10 - L90.0) SHOWED PAT AREA OF CONCERN USING A HAND MIRROR. APPLY CLOBETASOL OINTMENT ONCE NIGHTLY FOR ANOTHER MONTH, THEN THRICE A WEEK FOR A MONTH, THEN TWICE WEEKLY. THIS WILL BE HER MAINTENANCE DOSE. DO NOT GO LESS THAN APPLYING THE MEDICATION TWICE WEEKLY. CHECK VULVA MONTHLY AND INCREASE OR DECREASE DOSE NEEDED. Plan Of Treatment Treatment Notes Assessment Notes Lichen sclerosus et atrophicus SHOWED PAT AREA OF CONCERN USING A HAND MIRROR. APPLY CLOBETASOL OINTMENT ONCE NIGHTLY FOR ANOTHER MONTH, THEN THRICE A WEEK FOR A MONTH, THEN TWICE WEEKLY. THIS WILL BE HER MAINTENANCE DOSE. DO NOT GO LESS THAN APPLYING THE MEDICATION TWICE WEEKLY. CHECK VULVA MONTHLY AND INCREASE OR DECREASE DOSE NEEDED. Next Appt Details Follow Up: 4 Months, Reason: Provider Name:Andra elizabeth, 07/27/2024 02:40:00 PM, [address] [place] [address], [address], [place], [address], Provider Name:Andra elizabeth, 02/28/2025 03:00:00 PM, [address] [place] [address], [address], [place], [address], Progress Notes * ADRIAN GOODMANDOB: (63 yo F)Acc No.[id number]:04/06/2024 Patient:?ADRIAN GOODMAN Appointment Provider:?Andra elizabeth M.D. :1960???Age:63 Y???Sex:Female D ate:04/06/2024 Address:[address] [place], [place] [id number] Pcp:SHADE MELENDEZ Subjective: * Chief Complaints: * ???MEDICATION F/U * HPI: ???New/Follow-up Patient Consult:?VULVAR BIOPSY DONE IN 2015 SHOWED LICHEN SCLEROSUS.? SHE RESPONDED WELL TO CLOBETASOL TX BUT SHE WAS NOT DILIGENT IN APPLYING THE MEDICATION REGULARLY AND ON HER FOLLOW UP VISIT ON 02/23/24, THE LESIONS HAD RECURRED.? SHE WAS ADVISED TO APPLY THE MEDICATION NIGHTLY AND IS HERE FOR A FOLLOW UP VISIT. SHE IS WITH A NEW PARTNER OF 5 MONTHS DURATION AND IS MUCH HAPPIER. * ROS:?general:?no?chest pain.?no?palpitations.?no?headache.?no?cough.?no?shortness of breath.?no?fever.?no?unexplained weight loss.?no?nausea/vomiting.?no?change in bowel movements.?no blood in stool.?no?genitourinary complaints.?no?skin complaints.? * Medical History:? * [employer] History:?/ Para?3/3.?Sexual activity?currently sexually active.?Last Pap Smear:?12/07/21 NIL, NEG HPV, 09/19/18 NIL, NEG HRHPV, 07/2015 , neg, NEG HRHPV.?Mammogram:?02/11/23 < 50% density, 01/06/22 < 50% density, 11/26/20 Breast Tissue is Almost Entirely Fatty, 11/26/19 Breast Tissue is Almost Entirely Fatty, 10/05/18 < 50% density, 09/06/17 Breast Tissue is Almost Entirely Fatty, 09/02/2016 normal, 07/29/2015 05/16/14 < 25% glandular, 04/09/13.?LMP and menses?Zeynep 10/2009.? Control:?bilateral tubal ligation.?Menopause: ?Began at age: ?49 ???Colonoscopy?Cologuard 2020, 2010, 2005.?Bone Density:?01/06/22, 11/26/19, 09/02/2016.? * OB History:?Total pregnancies?3.?Total living children?3.?(s)?3.? * Surgical History:?Bilateral Tubal Ligation Section x 3 Cholecystectomy Gastric Bypass Colonoscopy 2006Vulvar Biopsy - Lichen Sclerosus 2016 * Hospitalization/Major Diagno stic Procedure:?See Surgical Hx * Family History:?Mother: dece ased.?Father: 82 yrs, coronary artery disease.?Paternal aunt: breast cancer, diagnosed with Other malignant neoplasm of unspecified site.? 10/2016. * Social History:?Tobacco Use:?Tobacco Control (Standard)?Tobacco use:?Former smoker ?How long has it been since you last smoked??Greater than 10 years ???Sexual History:?Sexual History?Had sex in the past 12 months (vaginal, oral, or anal)?: Yes, with: Men only.?Details of Sexual History?Are you sexually active??Yes ???Drugs/Alcohol:?Drugs?Have you used drugs other than those for medical reasons in the past 12 months??No ???Miscellaneous:?Children: yes, 3. ?Domestic violence: no. ?Exercise: yes, Weight Lifting, Cardio. ?Home smoke detector use: yes. ?Legal problems: no. ?Marital status: , . ?Natural support system: yes. ?Occupation: Works full-time. ?Others at home: yes. ?Sexual abuse: no. ?Sexually active: yes, monogamous relationship. ?Verbal abuse: no. ???Drug/Alcohol:?AUDIT-C (Standard)?Did you have a drink containing alcohol in the past year??No ?Points?0 ?Interpretation?Negative * Medications:?TakingZepbound 5 MG/0.5ML Solution Auto-injector 0.5 mL Subcutaneous Once a week Probiotic - Tablet Delayed Release as directed Orally valACYclovir HCl 1 GM Tablet 1 tablet Orally Once a day Cyanocobalamin 1000 MCG/ML Solution Injection Clobetasol Propionate 0.05 % Ointment 1 application to affected area Externally once a night x 1month then thrice a week Estradiol Vaginal Cream 0.01% Cream 1 Gram to the affected area Vulva Twice a week Taking Zepbound 5 MG/0.5ML Solution Auto- injector 0.5 mL Subcutaneous Once a week Taking Probiotic - Tablet Delayed Release as directed Orally Taking valACYclovir HCl 1 GM Tablet 1 tablet Orally Once a day Taking Cyanocobalamin 1000 MCG/ML Solution Injection Taking Clobetasol Propionate 0.05 % Ointment 1 application to affected area Externally once a night x 1month then thrice a week Taking Estradiol Vaginal Cream 0.01% Cream 1 Gram to the affected area Vulva Twice a week DiscontinuedClobetasol Propionate 0.05 % Ointment 1 application to affected area Externally TWICE A WEEK Medication List reviewed and reconciled with the patientDiscontinued Clobetasol Propionate 0.05 % Ointment 1 application to affected area Externally TWICE A WEEK Medication List reviewed and reconciled with the patient * Allergies:?Penicillin: Aller gyno[Allergies Verified] Objective: * Vitals:?Ht: 62 in, Wt:156lbs , BMI:28.53Index, BP:98/64mm Hg, Temp:97.5F. * Examination: ???FAMILY LAW PARALEGAL exam: ?EXTERNAL GENITALIA:?EXTENSIVE WHITE THINNED OUT AREAS ALONG BILATERAL LABIA MINORA AND MAJORA AND FOURCHETTE HAVE DIMINISHED MARKEDLY..? Assessment: * Assessment: 1.?Lichen sclerosus et atrop hicus - L90.0??? Plan: * Treatment: * Procedure Codes:? * Follow Up:?4 Months * Images: Billing Information: * Visit Code:? * Procedure Codes:? * Sign off status: Completed true * Appointment Provider:?Andra Ramirez M.D. Date:?04/06/2024 Generated for Mundo mart/Brent/John on:?06/13/2024 05:08 PM EDT History and Physical Notes * HPI (History of Present Illness) Category Sub-Category Detail Notes Category Not es New/Follow-up Patient Consult VULVAR BIOPSY DONE IN 2016 SHOWED LICHEN SCLEROSUS. SHE RESPONDED WELL TO CLOBETASOL [place] BUT SHE WAS NOT DILIGENT IN APPLYING THE MEDICATION REGULARLY AND ON HER FOLLOW UP VISIT ON 02/23/24, THE LESIONS HAD RECURRED. SHE WAS ADVISED TO APPLY THE MEDICATION NIGHTLY AND IS HERE FOR A FOLLOW UP VISIT. SHE IS WITH A NEW PARTNER OF 5 MONTHS DURATION AND IS MUCH HAPPIER. Examination Category Sub-Category Detail Notes Category Not es FAMILY LAW PARALEGAL exam EXTERNAL GENITALIA: EXTENSIVE WH ITE THINNED OUT AREAS ALONG BILATERAL LABIA MINORA AND MAJORA AND FOURCHETTE HAVE DIMINISHED MARKEDLY.
--- OUTSIDE RECORDS SUMMARY | 2024-06-13 17:09 | XMS_ITS | Clinical Summary ---
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
--- OUTSIDE RECORDS SUMMARY | 2024-06-13 17:09 | XMS_ITS ---
Author Organization [facility] Address [address] [address] Care Team Providers Care Flight Manager Name Role Phone SHADE MELENDEZ Primary Care Provider Andra Farooq Unavailable [phone] Allergies Allergen (clinical drug ingredient) Drug/Non Drug Allergy documented on EMR Reaction Allergy Type Onset Date Status Penicillin Unknown Drug Allergy Active REASON FOR VISIT Annual BAND SEWER Physical, Annual BAND SEWER Physical 60-85+ Medications Medication SIG (Take, Route, Frequency, Duration) Notes Start Date End Date Status Cyanocobalamin 1000 MCG/ML Injection for 90 Active Clobetasol Propionate 0.05 % 1 application to affected area Externally TWICE A WEEK for 90 days 09/08/2021 Active valACYclovir HCl 1 GM 1 tablet Orally On ce a day for 1 days Active Clobetasol Propionate 0.05 % 1 application to affected area Externally once a night x 1month then thrice a week for 90 days 02/23/2024 Active Estradiol Vaginal Cream 0.01% 1 Gram to the affected area Vulva Twice a week for 90 days 02/23/2024 Active Zepbound 5 MG/0.5ML 0.5 mL Subcutaneous Once a week Active Probiotic - as directed Orally Active Social History Tobacco Use: Social History [...] last smoked? 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 02/23/2024 Encounter for screening mammogram for malignant [...] REPEAT BMD THIS YEAR. Plan Of Treatment Medication Medication Name Sig Start Date Stop Date Notes Clobetasol Propionate 0.05 % 1 applicati on to affected area Externally once a night x 1month then thrice a week for 90 days 02/23/2024 Estradiol Vaginal Cream 0.01% 1 Gram to the affected area Vulva Twice a week for 90 days 02/23/2024 Treatment Notes Assessment Notes Encounter for gynecological examination (general) (routine) without abnormal findings NO PAP TEST, DUE IN 2024. Encounter for screening mamm ogram for malignant neoplasm of breast REGULAR MAMMOGRAMS AND SBE'S WERE RECOMMENDED. Lichen sclerosus et atrophicus SHOWED PAT RECURRENCE OF LESIONS USING A HAND MIRROR. EMPHASIZED THE NEED FOR THE PAT TO TAKE THIS DISEASE SERIOUSLY AND TO FOLLOW INSTRUCTIONS CLOSELY. RX AND DETAILED INSTRUCTIONS FOR CLOBETASOL OINTMENT WERE GIVEN. Atrophy of vulva DISCUSSED TX OPTIONS FOR VULVAR ATROPHY. RX AND INSTRUCTIONS FOR ESTRADIOL CREAM WERE GIVEN. Postmenopausal atrophic vaginitis DISCUSSED NEED FOR ESTROGEN INTRAVAGINALLY. RX AND INSTRUCTIONS FOR INTRAVAGINAL ESTROGEN WERE GIVEN. Other specified disorders of bone density and structure, multiple sites DISCUSSED HER LAST BMD AND SEVERE OSTEOPENIA AND ITS IMPACT ON HER HEALTH. ADEQUATE CALCIUM AND VIT D. WEIGHT BEARING EXERCISES. REPEAT BMD THIS YEAR. Pending Test Test Name Order Date MAMMOGRAM, SCREENING 02/23/2024 Urinalysis 02/23/2024 MM Digital Mammo Screening 02/23/2024 Next Appt Details Follow Up: 4 Weeks, Reason: Provider Name:Andra elizabeth, 07/27/2024 02:40:00 PM, [address] [place] [address], [phone], Provider Name:Andra elizabeth, 02/28/2025 03:00:00 PM, [address] [place] [address], [address], [place], [address], Progress Notes * ADRIAN GOODMANDOB: 1 (63 yo F)Acc No.[id number]:02/23/2024 PROGRESS NOTES Patient:?ADRIAN GOODMAN Appointment Provider:?Andra elizabeth M.D. :1960???Age:63 Y???Sex:Female D ate:02/23/2024 Address:[address] [place], [place] [id number] Pcp:SHADE MELENDEZ Subjective: * Chief Complaints: * ??? Annual BAND SEWER PhysicalAnnua l BAND SEWER Physical 60-85+ * HPI: ???New/Follow-up Patient Consult:? PAT ENTERED MENOPAUSE IN 2009.? SHE WAS A FEW YEARS AGO AND HAD BEEN WITH A NEW PARTNER FOR 3 YEARS.? SHE HAS PARTED WAYS WITH HIM AND NOW HAS ANOTHER PARTNER X 3 MONTHS.? SHE DENIES DYSPAREUNIA. SHE UNDERWENT GASTRIC BYPASS SURGERY IN 2001 AND LOST A SIGNIFICANT AMOUNT OF WEIGHT. VULVAR BIOPSY IN 2015 SHOWED LICHEN SCLEROSUS AND SHE RESPONDED WELL TO CLOBETASOL TREATMENT BUT SHE HAS NOT BEEN CONSISTENT IN APPLYING THE MEDICATION.?? HER LAST MAMMOGRAM DONE IN FEB 2023 SHOWED BREASTS ARE NOT DENSE AND WAS NORMAL. HER LAST PAP TEST IN 2021 WAS NEGATIVE AND HPV NEGATIVE. HER LAST BMD IN 2021 SHOWED SEVERE OSTEOPENIA WITH T-SCORE OF -2.4 AT THE HIP AND -2.2 AT THE FEMORAL NECK.? SHE HAS NO HX OF FRACTURES. SHE HAD COLOGUARD TESTING DONE IN 2020 AND ATTEMPTED COLONOSCOPY THIS JAN 2024 FAILED.? SHE WAS NOT CLEANED OUT WELL ENOUGH.? REPEAT COLONOSCOPY WILL BE DONE NEXT YEAR. ???Annual:? Patient presents for annual exam, ages 60-85, postmenopausal. ?General Health Maintenance:?Current breast complaints:?no breast pain, mass, discharge, or skin changes ?Urinary problems:?patient reports no urinary health problems or bowel health problems ?Calcium intake:?takes adequate calcium via diet and supplementation ?Significant BAND SEWER problems:?no significant excavator operator symptoms or problems * ROS:?general:?no?chest pain.?no?palpitations.?no?headache.?no?cough.?no?shortness of breath.?no?fever.?no?unexplained weight loss.?no?nausea/vomiting.?no?change in bowel movements.?no blood in stool.?no?genitourinary complaints.?no?skin complaints.? * Medical History:? * Quality Assurance Technician History:?/ Para?3/3.?Sexual activity?currently sexually active.?Last Pap Smear:?12/07/21 [...] Section x 3 Cholecystectomy Gastric Bypass Colonoscopy 2005 * Hospitalization/Major Diagno stic Procedure:?See Surgical Hx [...] to affected area Externally TWICE A WEEK Taking Zepbound 5 MG/0.5ML Solution Auto-injector 0.5 mL Subcutaneous Once a week Taking Probiotic - Tablet Delayed Release as directed Orally Taking valACYclovir HCl 1 GM Tablet 1 tablet Orally Once a day Taking Cyanocobalamin 1000 MCG/ML Solution Injection Taking Clobetasol Propionate 0.05 % Ointment 1 application to affected area Externally TWICE A WEEK DiscontinuedVitamin D3 25 MCG (1000 UT) Capsule 1 capsule Orally Once a day , Notes to Pharmacist: Unknown DoseEstradiol Vaginal Cream 0.01% Cream 1 Gram to the affected area Vulva Twice a week Medication List reviewed and reconciled with the patientDiscontinued Vitamin D3 25 MCG (1000 UT) Capsule 1 capsule Orally Once a day , Notes to Pharmacist: Unknown DoseDiscontinued Estradiol Vaginal Cream 0.01% Cream 1 Gram to the affected area Vulva Twice a week Medication List reviewed and reconciled with the patient * Allergies:?Penicillin: Aller gyno[Allergies Verified] Objective: * Vitals:?Ht: 62 in, Wt:161lbs , BMI:29.44Index, BP:106/72mm Hg, Temp:97.5F. * Examination: ???General Exam: ?CONSTITUTIONAL:?General Appearance:?alert, in no acute distress, normal, well nourished ?NECK/THYROID:?Inspection/Palpation:?normal ?Thyroid:?normal size and shape ?RESPIRATORY:?Auscultation: clear to auscultation bilaterally, Respiratory Effort: normal.?CARDIOVASCULAR:?Auscultation: regular rate and rhythm.?BREAST, Right:?Inspection/Palpation:?no discharge, no masses present, no nipple retraction, no skin changes, no skin dimpling, no tenderness, no lymphadenopathy, no axillary mass, no axillary tenderness ?BREAST, Left:?Inspection/Palpation:?no discharge, no masses present, no nipple retraction, no skin changes, no skin dimpling, no tenderness, no lymphadenopathy, no axillary mass, no axillary tenderness ?GASTROINTESTINAL:?Abdomen:?no masses, nontender, nondistended ?Liver and Spleen:?normal ?Hernias:?no hernias present, no inguinal adenopathy ?MUSCULOSKELETAL:?Inspection/Palpation:?no clubbing, cyanosis, or edema ?SKIN:?Skin:?normal ?NEURO/PSYCH:?Orientation:?time , place, person ?Mood/Affect:?normal?Genitourinary: ?EXTERNAL GENITALIA:?External Genitalia:?WHITE THINNED OUT AREAS ALONG A LARGE AREA OF THE VULVA INVOLVING BILATERAL LABIA MINORA AND MAJORA, FOURCHETTE AND PERIRECTAL AREAS C/W LICHEN SCLEROSUS. ?VAGINA:?Vagina:?atrophic vaginal tissue, minimal moisture ?BLADDER:?Bladder:?no mass, nontender ?URETHRA:?Urethra:?no erythema or lesions present ?CERVIX:?Cervix:?no lesions, nontender ?UTERUS:?Uterus:?nontender, normal contour, normal mobility, normal size ?ADNEXA:?Adnexa:?no masses, no tenderness ?ANUS AND PERINEUM:?Anus/Perineum:?visually normal??? 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 Plan: * Treatment: 2.?Encounter for screening m ammogram for malignant neoplasm of breast?Imaging: MM Digital Mammo Screening Notes: REGULAR MAMMOGRAMS AND SBE'S WERE RECOMMENDED.?? 3.?Lichen sclerosus et atrop hicus? Start Clobetasol Propionate Ointment, 0.05 %, 1 application to affected area, Externally, once a night x 1month then thrice a week, 90 days, 60 Gram, Refills 2.?? Notes: SHOWED PAT RECURRENCE OF LESIONS USING A HAND MIRROR. EMPHASIZED THE NEED FOR THE PAT TO TAKE THIS DISEASE SERIOUSLY AND TO FOLLOW INSTRUCTIONS CLOSELY. RX AND DETAILED INSTRUCTIONS FOR CLOBETASOL OINTMENT WERE GIVEN.?? 4.?Atrophy of vulva? Start Estradiol Vaginal Cream Cream, 0.01%, 1 Gram to the affected area, Vulva, Twice a week, 90 days, 42.5 Gram, Refills 4.?? Notes: DISCUSSED TX OPTIONS FOR VULVAR ATROPHY. RX AND INSTRUCTIONS FOR ESTRADIOL CREAM WERE GIVEN.?? 5.?Postmenopausal atrophic v aginitis? Notes: DISCUSSED NEED FOR ESTROGEN INTRAVAGINALLY. RX AND INSTRUCTIONS FOR INTRAVAGINAL ESTROGEN WERE GIVEN. ?? 6.?Other specified disorders of bone density and structure, multiple sites? Notes: DISCUSSED HER LAST BMD AND SEVERE OSTEOPENIA AND ITS IMPACT ON HER HEALTH. ADEQUATE CALCIUM AND VIT D. WEIGHT BEARING EXERCISES. REPEAT BMD THIS YEAR. ?? * Imaging:? * ?Imaging: MAMMOGRAM, SCR EENING * Procedure Codes:? * Preventive Medicine:? ??YOUR PREVENTIVE WELLNESS PLAN:?Osteoporosis prevention?Calcium, D, strength training.?Breast Cancer Screening (Mammogram):?annually.?Cervical Cancer Screening (Pap Smear):?q 3 years with HPV screen.?Colorectal Cancer Screening:?q 10 years.? * Follow Up:?4 Weeks * Images: Billing Information: * Visit Code:? [id number] Preventive Care Est Pt. Age 65 and over. * Procedure Codes:? * Sign off status: Completed Addendum: * ? true * Appointment Provider:?Andra Ramirez M.D. Date:?02/23/2024 Generated for [employer]/Brent/Clareitting on:?06/13/2024 05:08 PM EDT History and Physical Notes * HPI (History of Present Illness) Category Sub-Category Detail Notes Category Not es New/Follow-up Patient Consult PAT ENTERED MENOPAUSE IN 2009. SHE WAS A FEW YEARS AGO AND HAD BEEN WITH A NEW PARTNER FOR 3 YEARS. SHE HAS PARTED WAYS WITH HIM AND NOW HAS ANOTHER PARTNER X 3 MONTHS. SHE DENIES DYSPAREUNIA. SHE UNDERWENT GASTRIC BYPASS SURGERY IN 2001 AND LOST A SIGNIFICANT AMOUNT OF WEIGHT. VULVAR BIOPSY IN 2015 SHOWED LICHEN SCLEROSUS AND SHE RESPONDED WELL TO CLOBETASOL TREATMENT BUT SHE HAS NOT BEEN CONSISTENT IN APPLYING THE MEDICATION. HER LAST MAMMOGRAM DONE IN FEB 2023 SHOWED BREASTS ARE NOT DENSE AND WAS NORMAL. HER LAST PAP TEST IN 2021 WAS NEGATIVE AND HPV NEGATIVE. HER LAST BMD IN 2021 SHOWED SEVERE OSTEOPENIA WITH T-SCORE OF -2.4 AT THE HIP AND -2.2 AT THE FEMORAL NECK. SHE HAS NO HX OF FRACTURES. SHE HAD COLOGUARD TESTING DONE IN 2020 AND ATTEMPTED COLONOSCOPY THIS JAN 2024 FAILED. SHE WAS NOT CLEANED OUT WELL ENOUGH. REPEAT COLONOSCOPY WILL BE DONE NEXT YEAR. Annual General Health Maintenance: Current breast complaints:: no breast pain, mass, discharge, or skin changes Urinary problems:: patient r eports no urinary health problems or bowel health problems Calcium intake:: takes adequ ate calcium via diet and supplementation Significant BAND SEWER problems:: n o significant excavator operator symptoms or problems Examination Category Sub-Category Detail Notes Category Not es General Exam CONSTITUTIONAL: General Appearan ce:: alert, in no acute distress, normal, well nourished NECK/THYROID: Inspection/Palpation:: normal Thyroid:: normal size and shape RESPIRATORY: Auscultation: clear to auscultation bilaterally, Respiratory Effort: normal CARDIOVASCULAR: Auscultation: regula r rate and rhythm GASTROINTESTINAL: Abdomen:: no masses, nontender , nondistended Liver and Spleen:: normal Hernias:: no hernias present, no inguina l adenopathy MUSCULOSKELETAL: Inspection/Palpation:: no clubb ing, cyanosis, or edema SKIN: Skin:: normal NEURO/PSYCH: Orientation:: time , place, pers on Mood/Affect:: normal BREAST, Right: Inspection/Palpation :: no discharge, no masses present, no nipple retraction, no skin changes, no skin dimpling, no tenderness, no lymphadenopathy, no axillary mass, no axillary tenderness BREAST, Left: Inspection/Palpation :: no discharge, no masses present, no nipple retraction, no skin changes, no skin dimpling, no tenderness, no lymphadenopathy, no axillary mass, no axillary tenderness Genitourinary EXTERNAL GENITALIA: External Genitalia:: WHITE THINNED OUT AREAS ALONG A LARGE AREA OF THE VULVA INVOLVING BILATERAL LABIA MINORA AND MAJORA, FOURCHETTE AND PERIRECTAL AREAS C/W LICHEN SCLEROSUS. VAGINA: Vagina:: atrophic vaginal tissue , minimal moisture BLADDER: Bladder:: no mass, nontender URETHRA: Urethra:: no erythema or lesions present CERVIX: Cervix:: no lesions, nontender UTERUS: Uterus:: nontender, normal conto ur, normal mobility, normal size ADNEXA: Adnexa:: no masses, no tendernes s ANUS AND PERINEUM: Anus/Perineum:: visually norm al
--- OUTSIDE RECORDS SUMMARY | 2024-06-13 17:09 | XMS_ITS | Encounter Summary ---
Author Organization [facility] Address [address] [place] [address] Care Team Providers Care Wood Craftsman Name Role Phone Tracey Spear CANVAS CUTTER MACHINE Primary Care Provider [phone] Tracey Spear CANVAS CUTTER MACHINE Unavailable Andra Ramirez MD Unavailable Reason for Visit * Reason Comments Medication Problem Encounter Details Date Type Department Care Team (Late st Contact Info) Description [facility]/22[facility] [address] [place] [address] Tracey Spear, CANVAS CUTTER MACHINE [address] [place], [place] [id number] Medication Problem Social History Tobacco Use Types Packs/Day Years [...] Telephone Encounter - Tracey Spear APRN - 09/29/2020 4:13 PM EDT Script sent to the pharmacy 325 mg (7.4 ml) three times a day of ferrous sulfate * Telephone Encounter - Reva Zabala LPN - 09/22/2020 4:06 PM EDT 09/22/20 LVM to CB. * Telephone Encounter - Reva Zabala LPN - 09/22/2020 3:18 PM EDTSummary: Dispense error Saxenda FYI: Spoke with patient's pharmacy in regards to dispense error (Saxenda) given to patient. Pharmacy notified patient, changed inj. pen and discussed possible side effects. * Telephone Encounter - Bautista Willis DO - 09/22/2020 2:04 PM EDT Nothing in notes. We will have to wait for PCP to come back. * Telephone Encounter - Reva Zabala LPN - 09/22/2020 1:53 PM EDT Patient states that in last visit 09/19/20 provider suppose to send iron supplement (liquid iron) to pharmacy. Don't see anything in discussion notes, last labs on 09/13/20 hemoglobin low 8.9. Please advise. * Telephone Encounter - Estephanie Chaidez - 09/22/2020 1:36 PM EDT Pt called in states it was dicussed during her last visit that she'd be starting an iron supplementand that Tracey would be sending a RX for liquid iron to her pharmacy. Pharmacy info: [facility] [address] in [place] Pt contact info:[phone] documented in this encounter Plan of Treatment Not on file documented as of this encounter Visit Diagnoses Not on filedocumented in this encounter Care Teams Wood Craftsman Relationship Specialty Start Date End Date Tracey Spear APRN PCP - General Family Medicine 09/30/17 06/10/22 Tracey Spear APRN [address] [place] [id number] PCP - [employer] Attributed 02/12/20 10/11/20 Andra Ramirez MD [address] [place] [address] Referring Provider Gynecology 09/19/20 documented as of this encounter
== END 2024-06-13 15:27 | disposition home or self-care (01) ==
LOC: HO.HMCC 14:21
PROVIDERS: PCP Internal Medicine; Visit Provider Internal Medicine
DX: Z00.01 Encounter for general adult medical examination with abnormal findings (principal); F33.41 Major depressive disorder, recurrent, in partial remission; R07.89 Other chest pain; D51.0 Vitamin B12 deficiency anemia due to intrinsic factor deficiency; E55.9 Vitamin D deficiency, unspecified; F41.1 Generalized anxiety disorder; D50.0 Iron deficiency anemia secondary to blood loss (chronic); B00.1 Herpesviral vesicular dermatitis

== ENCOUNTER → 2024-06-13 14:55 | Outpatient (BNV) | payer OTHER, SELFPAY | PROVIDERS: PCP Internal Medicine; Visit Provider Radiology Diagnostic Radiology | DX: S22.31XA Fracture of one rib, right side, initial encounter for closed fracture (principal) | CPT/HCPCS: 71101 ==

== ENCOUNTER 2024-06-14 08:04 | Outpatient (REF) | payer OTHER, SELFPAY ==
--- OUTSIDE RECORDS SUMMARY | 2024-06-14 08:11 | XMS_ITS | Encounter Summary ---
Author Organization [facility] Address [address] [place] [address] Care Team Providers Care Area Attendant Name Role Phone Tracey Spear CARE TAKER Primary Care Provider [phone] Tracey Spear CARE TAKER Unavailable [phone] Andra Ramirez MD Unavailable Reason for Visit * Reason Comments Medication Refill Encounter Details Date Type Department Care Team (Late st Contact Info) Description 03/04/2020 [facility] [address] [place] [phone] Tracey Spear, CARE TAKER [address] [place] [address] Herpes labialis Social History Tobacco Use Types [...] complication documented in this encounter Care Teams Area Attendant Relationship Specialty Start Date End Date Tracey Spear APRN PCP - General Family Medicine 09/30/17 06/10/22 Tracey Spear APRN [address] [place] [id number] PCP - [employer] Attributed 02/12/20 10/11/20 Andra Ramirez MD [address] [facility] [address] [place] [address] Referring Provider Gynecology 09/19/20 documented as of this encounter
--- OUTSIDE RECORDS SUMMARY | 2024-06-14 08:11 | XMS_ITS | Clinical Summary ---
Author Organization [facility] Address [address] [place] [address] Care Team Providers Care Foam Rubber Fabricator Name Role Phone Andra Ramirez MD Unavailable [phone] Allergies Active Allergy Reactions Criticality Noted Date Comments Penicillins Rash/Dermatitis Low 11/18/2016 Medications Medication Sig Dispensed Refills Start Date End Date Status ergocalciferol (ERGOCALCIFEROL) 46307 units capsuleIndication s:Vitamin D deficiency Take 1 [...] 1 07/13/2021 Active cholecalciferol (CHOLECALCIFEROL) 1.25 MG (07038 UT) capsuleIndication s:Vitamin D deficiency TAKE 1 [...] AM EDT) Cholesterol, Total 117 <200 mg/dL [facility] Cholesterol, HDL 42(L) > OR = 50 mg/dL [facility] Triglycerides 58 <150 mg/dL [facility] LDL Cholesterol 62 mg/dL (calc) [facility] Comment: Reference range: <100 Desirable range <100 mg/dL for primary prevention; ?? <70 mg/dL for patients with CHD or diabetic patients with > or = 2 CHD risk factors. LDL-C is now calculated using the Bonnie calculation, which is a validated novel method providing better accuracy than the Friedewald equation in the estimation of LDL-C. Alejo SS et al. KANDY. 2013;310(19): 5075-4287 (http://education.[employer].com/faq/ZUW959) Cholesterol/HDL Ratio 2.8 <5.0 (calc) [facility] Non HDL Chol. (LDL+VLDL) 75 <130 mg/dL (calc) [facility] Comment: For patients with diabetes plus 1 major ASCVD risk factor, treating to a non-HDL-C goal of <100 mg/dL (LDL-C of <70 mg/dL) is considered a therapeutic option. Blood specimen (specimen) 06/26/2021 7:41 AM EDT 06/26/2021 7:41 AM EDT Narrative [employer] - 06/27/2021 1:38 AM EDT FASTING:YES FASTING: YES Tracey Spear APRN LAB BLOOD ORDERAB LES Performing Organization Address [facility] Co de Phone Number [employer] [address] [place] [address], [place] [address] * Hepatitis C Antibody (06/26/2021 7:39 AM EDT) Hepatitis C Antibody NON-REACT NEAL NON-REACT NEAL [facility] Hepatitis C Antibody (s/co) 0.14 <1.00 [facility] Comment: HCV antibody was non-reactive. There is no laboratory evidence of HCV infection. In most cases, no further action is required. However, if recent HCV exposure is suspected, a test for HCV RNA (test code 92964) is suggested. For additional information please refer to http://[employer]/faq/JUJ58c1 (This link is being provided for informational/ educational purposes only.) Blood specimen (specimen) Blood specimen / Unknown 06/26/2021 7:39 AM EDT 06/26/2021 7:40 AM EDT Narrative [facility] - 06/27/2021 2:06 AM EDT FASTING:YES FASTING: YES Tracey Spear APRN LAB BLOOD ORDERAB LES Performing Organization Address City/[facility]/ZIP Co de Phone Number [employer] [address] [place] [address], [place] [address] * PATHOLOGY GYNECOLOGY (09/21/2018) External Provider MD [facility] HX PATH PROCEDU RES from Last 3 Months or Most Recently Relevant to Health Maintenance Care Teams Foam Rubber Fabricator Relationship Specialty Start Date End Date Andra Ramirez MD [address] [place], [place] [id number] Referring Provider Gynecology 09/19/20
--- OUTSIDE RECORDS SUMMARY | 2024-06-14 08:12 | XMS_ITS | Encounter Summary ---
Author Organization [facility] Address [address] [place] [address] Care Team Providers Care Group Exercise Instructor Name Role Phone Tracey Spear CODING COMPLIANCE SPECIALIST Primary Care Provider [phone] Tracey Spear APRN Unavailable Andra Ramirez MD Unavailable [phone] Encounter Details Date Type Department Care Team (Late st Contact Info) Description 10/08/2020 Documentation [facility] [address] [place] [address] Estephanie Chaidez [place] [address] [place], [place] [address] Social History Tobacco Use Types Packs/Day Years [...] on filedocumented in this encounter Care Teams Group Exercise Instructor Relationship Specialty Start Date End Date Tracey Spear APRN PCP - General Family Medicine 09/30/17 06/10/22 Tracey Spear APRN [address] [place] [id number] PCP - [employer] Attributed 02/12/20 10/11/20 Andra Ramirez MD [address] [facility] [place] [address] [place] [address] Referring Provider Gynecology 09/19/20 documented as of this encounter
--- OUTSIDE RECORDS SUMMARY | 2024-06-14 08:12 | XMS_ITS | Encounter Summary ---
Author Organization [facility] Address [address] [place] [address] Care Team Providers Care Custodial Officer Name Role Phone Tracey Spear CONTACT LENS INSPECTOR Primary Care Provider [phone] Tracey Spear CONTACT LENS INSPECTOR Unavailable Andra Ramirez MD Unavailable Encounter Details Date Type Department Care Team (Late st Contact Info) Description 09/03/2020 Telephone [facility] [address] [place] [address] Tracey Spear, CONTACT LENS INSPECTOR [address] [place], [place] [phone] Social History Tobacco Use Types Packs/Day Years [...] on filedocumented in this encounter Care Teams Custodial Officer Relationship Specialty Start Date End Date Tracey Spear APRN PCP - General Family Medicine 09/30/17 06/10/22 Tracey Spear APRN [facility] [place] [address] PCP - [employer] Attributed 02/12/20 10/11/20 Andra Ramirez MD [address] [place] [address] Referring Provider Gynecology 09/19/20 documented as of this encounter
--- OUTSIDE RECORDS SUMMARY | 2024-06-14 08:12 | XMS_ITS | Encounter Summary ---
Author Organization [facility] Address [address] [place] [address] Care Team Providers Care Envelope Cutter Name Role Phone Tracey Spear APRN Primary Care Provider [phone] Andra Ramirez MD Unavailable [phone] Reason for Visit * Reason Comments Medication Refill Encounter Details Date Type Department Care Team (Late st Contact Info) Description 03/15/2021 Refill [facility] [address] [place] [address] Tracey Spear, SCREW MACHINE HAND [address] [place], [place] [phone] Morbid obesity with BMI of 40.0-44.9, adult [...] (HCC) documented in this encounter Care Teams Envelope Cutter Relationship Specialty Start Date End Date Tracey Spear APRN PCP - General Family Medicine 09/30/17 06/10/22 Andra Ramirez MD [address] [place] [address] Referring Provider Gynecology 09/19/20 documented as of this encounter
--- OUTSIDE RECORDS SUMMARY | 2024-06-14 08:12 | XMS_ITS | Encounter Summary ---
Author Organization [facility] Address [address] [place] [address] Care Team Providers Care Jewellery Designer Name Role Phone Tracey Spear FIELD REVIEWER Primary Care Provider [phone] Andra Ramirez MD Unavailable [phone] Encounter Details Date Type Department Care Team (Late st Contact Info) Description 01/19/2021 Scanned Document [address] [phone] Tracey Spear, FIELD REVIEWER [address] [place] [address] Social History Tobacco Use Types Packs/Day Years [...] on filedocumented in this encounter Care Teams Jewellery Designer Relationship Specialty Start Date End Date Tracey Spear APRN PCP - General Family Medicine 09/30/17 06/10/22 Andra Ramirez MD [address] [facility] [address] [place] [address] Referring Provider Gynecology 09/19/20 documented as of this encounter
--- OUTSIDE RECORDS SUMMARY | 2024-06-14 08:12 | XMS_ITS | Encounter Summary ---
Author Organization [facility] Address [address] [place] [address] Care Team Providers Care Finished Cigar Maker Name Role Phone Tracey Spear HOSPITALITY WORKERS Primary Care Provider [phone] Andra Ramirez MD Unavailable [phone] Encounter Details Date Type Department Care Team (Late st Contact Info) Description 01/01/2021 Scanned Document [address] [address] Tracey Spear, HOSPITALITY WORKERS [address] [place] [address] Social History Tobacco Use Types Packs/Day Years [...] on filedocumented in this encounter Care Teams Finished Cigar Maker Relationship Specialty Start Date End Date Tracey Spear APRN PCP - General Family Medicine 09/30/17 06/10/22 Andra Ramirez MD [address] [facility] [address] [place] [address] Referring Provider Gynecology 09/19/20 documented as of this encounter
--- OUTSIDE RECORDS SUMMARY | 2024-06-14 08:12 | XMS_ITS ---
Author Organization [facility] Address [address] [address] Care Team Providers Care Branch Examiner Name Role Phone SHADE MELENDEZ Primary Care Provider Andra Farooq Unavailable [phone] Allergies Allergen (clinical drug ingredient) Drug/Non Drug Allergy documented on EMR Reaction Allergy Type Onset Date Status Penicillin Unknown Drug Allergy Active REASON FOR VISIT Annual DIRECTOR WEB Physical, Annual DIRECTOR WEB Physical 60-85+ Medications Medication SIG (Take, Route, [...] Encounters Encounter Location Date Provider Diagnosis Total [address] [place] [address] 02/23/2024 Andra Russellva Encounter for gynecological examination [...] Reason: Provider Name:Andra elizabeth, 07/27/2024 02:40:00 PM, [address] [place] [address], [address], Provider Name:Andra elizabeth, 02/28/2025 03:00:00 PM, [address] [place] [address], [address], [place], [address], Progress Notes * ADRIAN GOODMANDOB: 1 (63 yo F)Acc No.[id number]:02/23/2024 PROGRESS NOTES Patient:?ADRIAN GOODMAN Appointment Provider:?Andra elizabeth M.D. :1960???Age:63 Y???Sex:Female D ate:02/23/2024 Address:[address] [place], [place] [id number] Pcp:SHADE MELENDEZ Subjective: * Chief Complaints: * ??? Annual DIRECTOR WEB PhysicalAnnua l DIRECTOR WEB Physical 60-85+ * HPI: ???New/Follow-up Patient Consult:? [...] adequate calcium via diet and supplementation ?Significant DIRECTOR WEB problems:?no significant scientific affairs manager symptoms or problems * ROS:?general:?no?chest pain.?no?palpitations.?no?headache.?no?cough.?no?shortness of breath.?no?fever.?no?unexplained weight loss.?no?nausea/vomiting.?no?change in bowel movements.?no blood in stool.?no?genitourinary complaints.?no?skin complaints.? * Medical History:? * Catering Driver History:?/ Para?3/3.?Sexual activity?currently sexually active.?Last Pap Smear:?12/07/21 [...] * Images: Billing Information: * Visit Code:? [id number] Preventive Care Est Pt. Age 65 and over. * Procedure Codes:? * Sign off status: Completed Addendum: * ? true * Appointment Provider:?Andra Ramirez M.D. Date:?02/23/2024 Generated for [facility]/Brent/Clareitting on:?06/14/2024 08:12 AM EDT History and Physical Notes * HPI [...] ate calcium via diet and supplementation Significant DIRECTOR WEB problems:: n o significant scientific affairs manager symptoms or problems Examination Category Sub-Category Detail [...]
--- OUTSIDE RECORDS SUMMARY | 2024-06-14 08:12 | XMS_ITS | Encounter Summary ---
Author Organization [facility] Address [address] [place] [address] Care Team Providers Care Speaker Mounter Name Role Phone Tracey Spear TRUCK BENCH MECHANIC Primary Care Provider [phone] Andra Ramirez MD Unavailable [phone] Encounter Details Date Type Department Care Team (Late st Contact Info) Description 04/09/2021 Scanned Document [address] [phone] Tracey Spear, TRUCK BENCH MECHANIC [address] [place] [address] Social History Tobacco Use Types Packs/Day Years [...] on filedocumented in this encounter Care Teams Speaker Mounter Relationship Specialty Start Date End Date Tracey Spear APRN PCP - General Family Medicine 09/30/17 06/10/22 Andra Ramirez MD 46 [facility] [address] [place] [address] Referring Provider Gynecology 09/19/20 documented as of this encounter
--- OUTSIDE RECORDS SUMMARY | 2024-06-14 08:12 | XMS_ITS ---
Author Organization [facility] Address [address] [address] Care Team Providers Care Art Historian Name Role Phone AL ZAKAxel Primary Care Provider Andra Farooq Unavailable [phone] Allergies Allergen (clinical drug ingredient) Drug/Non Drug [...] 04/06/2024 Encounters Encounter Location Date Provider Diagnosis [address] [address] 04/06/2024 Andra Ramirez Lichen sclerosus et atrophicus [...] Reason: Provider Name:Andra elizabeth, 07/27/2024 02:40:00 PM, [address] [place] [address], [address], [place], [address], Provider Name:Andra elizabeth, 02/28/2025 03:00:00 PM, [address] [place] [address], [address], [place], [address], Progress Notes * ADRIAN GOODMANDOB: (63 yo F)Acc No.[id number]:04/06/2024 Patient:?ADRIAN GOODMAN Appointment Provider:?Andra elizabeth M.D. :1960???Age:63 Y???Sex:Female D ate:04/06/2024 Address:[address] [place], [place] [phone] Pcp:SHADE MELENDEZ Subjective: * Chief Complaints: * [...] stool.?no?genitourinary complaints.?no?skin complaints.? * Medical History:? * Professor In Family Studies History:?/ Para?3/3.?Sexual activity?currently sexually active.?Last Pap Smear:?12/07/21 [...] , BMI:28.53Index, BP:98/64mm Hg, Temp:97.5F. * Examination: ???LAB AID exam: ?EXTERNAL GENITALIA:?EXTENSIVE WHITE THINNED OUT AREAS [...] Ramirez M.D. Date:?04/06/2024 Generated for [facility]/Brent/John on:?06/14/2024 08:12 AM EDT History and Physical [...] Category Sub-Category Detail Notes Category Not es LAB AID exam EXTERNAL GENITALIA: EXTENSIVE WH ITE THINNED OUT AREAS ALONG BILATERAL LABIA MINORA AND MAJORA AND FOURCHETTE HAVE DIMINISHED MARKEDLY.
--- OUTSIDE RECORDS SUMMARY | 2024-06-14 08:12 | XMS_ITS | Clinical Summary ---
Author Organization [facility] Address [address] [place] [address] Care Team Providers Care License Examiner Name Role Phone Unavailable Primary Care Provider Unavailabl e Social History Tobacco Use Types Packs/Day Years Used Date Smoking Tobacco: Never Assessed Sex and Gender Information Value Date Recorded Sex Assigned at Not on file Gender Identity Not on file Sexual Orientation Not on file Plan of Treatment Not on file
--- OUTSIDE RECORDS SUMMARY | 2024-06-14 08:12 | XMS_ITS ---
Author Organization [facility] Address [address] [address] Care Team Providers Care Port Drier Name Role Phone SHADE MELENDEZ Primary Care Provider Andra Farooq [phone] REASON FOR VISIT Annual (YELLOW FORM DONE) Encounters Encounter Location Date Provider Diagnosis [facility] [address] [address] 12/23/2023 Andra Ramirez Plan Of Treatment Next Appt Details Provider Name:Andra elizabeth, 07/27/2024 02:40:00 PM, [address] [place] [address], [address], [place], [address], Provider Name:Andra elizabeth, 02/28/2025 03:00:00 PM, [address] [place] [address], [address], [place], [address], Progress Notes * ADRIAN GOODMANDOB: (63 yo F)Acc No.[id number]:12/23/2023 PROGRESS NOTES Patient:?ADRIAN GOODMAN Appointment Provider:?Andra elizabeth M.D. :1960???Age:63 Y???Sex:Female D ate:12/23/2023 Address:[address] [place] [address] Pcp:SHADE MELENDEZ Subjective: * Chief Complaints: * ???1. Annual (YELLOW FORM DO NE). * Medical History:? Objective: * Vitals:? Assessment: Plan: * Treatment: * Images: Billing Information: * Visit Code:? * Procedure Codes:? * Electronic signature of Ann Marie Ramirez MD on 06/14/2024 at 08:12 AM EDT Sign off status: Pending * Appointment Provider:?Andra Ramirez M.D. Date:?12/23/2023 Generated for [facility]/Brent/Jeffreysmitting on:?06/14/2024 08:12 AM EDT
--- OUTSIDE RECORDS SUMMARY | 2024-06-14 08:12 | XMS_ITS | Patient Health Record ---
Author Organization [facility] Address [address] [facility] [address] [place] [address] Care Team Providers Care Organic Chemistry Teacher Name Role Phone SHADE MELENDEZ Primary Care Provider Andra Farooq Unavailable [phone] Allergies Allergen (clinical drug ingredient) Drug/Non Drug [...] Status Risk Notes Problem Postmenopausal atrophic vaginitis (76887026) Postmenopausal atrophic vaginitis (N95.2) Active confirmed Problem Morbid obesity (disorder) (393997729) Morbid (severe) obesity due to excess calories (E66.01) Active confirmed Problem Localized morphea (348477462) 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) Active confirmed Problem Atrophy of vulva (967600673) Atrophy of vulva (N90.5) Active confirmed Problem Vitamin D deficiency (31876018) Vitamin D deficiency, unspecified (E55.9) Active confirmed Problem Menopausal symptom (78788826) Symptomatic menopausal or female climacteric states (627.2) Active confirmed Major Problem Postmenopausal atrophic vaginitis (34564007) Postmenopausal atrophic vaginitis (627.3) Active confirmed Diag Problem Gynecological examination normal (886226118511313) Routine gynecological examination (V72.31) Active confirmed Problem Screening for malignant neoplasm of colon (264574166) Special screening for malignant neoplasms, colon (V76.51) Active confirmed Major Vital Signs Temperature 97.5 degrees Fahrenheit 04/06/2024 Blood pressure diastolic 64 mm Hg 04/06/2024 Height 62 in 04/06/2024 Blood pressure systolic 98 mm Hg 04/06/2024 Weight 156 lbs 04/06/2024 BMI 28.53 kg/m2 04/06/2024 Encounters Encounter Location Date Provider Diagnosis [facility] [address] [place] [address] 02/23/2024 Andra Ramirez Encounter for gynecological examination (general) (routine) without abnormal findings Z01.419 ; Encounter for screening mammogram for malignant neoplasm of breast Z12.31 ; Lichen sclerosus et atrophicus L90.0 ; Atrophy of vulva N90.5 ; Postmenopausal atrophic vaginitis N95.2 and Other specified disorders of bone density and structure, multiple sites M85.89 [facility] [place] [address] [place] [address] 04/06/2024 Andra Ramirez Lichen sclerosus et atrophicus [...] Provider Name:Andra elizabeth, 07/27/2024 02:40:00 PM, [address], [place], [address], Provider Name:Andra elizabeth, 02/28/2025 03:00:00 PM, [address], [address], [place], [address], Insurance Providers Payer Name Payer Address Payer Phone Subscriber Number Group Number Insured Name Patient Relationship to Insured Coverage Start Date Coverage End Date [employer] [address] [place] [address] [id number] ADRIAN GOODMAN Self - patient is the [...]
--- OUTSIDE RECORDS SUMMARY | 2024-06-14 08:12 | XMS_ITS | Encounter Summary ---
Author Organization [facility] Address [address] [place] [address] Care Team Providers Care Progressive Assembler And Fitter Name Role Phone Tracey Spear PACKING MACHINE OPERATOR Primary Care Provider [phone] Tracey Spear PACKING MACHINE OPERATOR Unavailable Andra Ramirez MD Unavailable [phone] Reason for Visit * Reason Comments Other Encounter Details Date Type Department Care Team (Late st Contact Info) Description [facility]/02/[facility] [address] [place] [address] Tracey Spear, PACKING MACHINE OPERATOR [address] [place] [address] Other Social History Tobacco Use [...] on filedocumented in this encounter Care Teams Progressive Assembler And Fitter Relationship Specialty Start Date End Date Tracey Spear APRN PCP - General Family Medicine 09/30/17 06/10/22 Tracey Spear APRN [address] [place] [address] PCP - [employer] Attributed 02/12/20 10/11/20 Andra Ramirez MD [address] [facility] [address] [place] [address] Referring Provider Gynecology 09/19/20 documented as of this encounter
[2024-06-14 11:04] LABS: Appearance Urine Clear; Color Urine Yellow; Glucose Urine UA Negative (Negative); Leukocyte Esterase Urine Negative (Negative); Nitrite Urine Negative (Negative); PH 5.5 (5.0-9.0); Specific Gravity - Urine 1.025 (1.005-1.025); Urine Blood Negative (Negative); Urine Ketones Negative (Negative); Urine Protein Negative (Neg-Trace)
[2024-06-14 12:08] LABS: Alanine Aminotransferase 11 U/L (0-31); Albumin Level 3.8 g/dL (3.5-5.0); Alkaline Phosphatase 113 U/L (39-117); Anion Gap 10 (12-20); Aspartate Amino Transferase 25 U/L (5-31); Bilirubin Total 0.5 mg/dL (0.0-1.0); Blood Urea Nitrogen 16 mg/dL (9-16); Calcium 9.4 mg/dL (8.4-10.2); Carbon Dioxide 28 mmol/L (22-29); Chloride 109 mmol/L (96-108); Cholesterol 121 mg/dL (<200); Estimated Glomerular Filt Rate > 60; Glucose Fasting 78 mg/dL (60-99); HDL Cholesterol 41 mg/dL (>40); LDL Cholesterol Calculated 72 mg/dL (<100); Sodium 143 mmol/L (135-145); Total Protein 6.6 g/dL (6.5-8.0); Triglycerides 43 mg/dL (<150)
[2024-06-14 12:27] LABS: Ferritin 81 ng/mL (10-250); TSH reflex Free T4 4.03 uIU/mL (0.32-4.0)
[2024-06-14 13:13] LABS: Free T4 (Free Thyroxine) 1.08 ng/dL (0.71-1.85)
== END 2024-06-14 08:05 | disposition home or self-care (01) ==
LOC: HO.HMGCLDS 08:04
PROVIDERS: PCP Internal Medicine; Visit Provider Internal Medicine
DX: Z00.01 Encounter for general adult medical examination with abnormal findings (principal); D51.0 Vitamin B12 deficiency anemia due to intrinsic factor deficiency; E55.9 Vitamin D deficiency, unspecified; F41.1 Generalized anxiety disorder; F33.41 Major depressive disorder, recurrent, in partial remission; D50.0 Iron deficiency anemia secondary to blood loss (chronic); B00.1 Herpesviral vesicular dermatitis
CPT/HCPCS: 36415; 80053; 80061; 81003; 82728; 84439; 84443

== ENCOUNTER 2024-07-24 06:37 | Day surgery (SDC) | payer OTHER, SELFPAY ==
[2024-07-20 08:37] VITALS: BMI 28.0
--- NOTE | 2024-07-23 09:09 | HO.ANESPROP2 ---
HPI - Anesthesia Eval Consult details Narrative: 64yo F for Colonoscopy Anesthesia Pre-Procedure Meds Is the patient on any of the following meds?: GLP1/DPP4 PMFSH Active Problems Active Problems: All Active Problems Non-cardiac chest pain (Acute) Recurrent cold sores (Acute) Colon cancer screening (Acute) Iron deficiency anemia (Chronic) Stress at home (Acute) Major depression, recurrent (Acute) Anxiety, generalized (Acute) Acute bronchitis (Acute) Herpes simplex (Acute) Vitamin D deficiency (Acute) History of gastric bypass (Acute) Pernicious anemia (Acute) Obesity due to excess calories (Acute) Encounter for general adult medical examination with abnormal findings (Acute) Past Medical History Medical History Anemia Family History Family History Sister Substance use disorder Brother NHL (non-Hodgkin's lymphoma) Brother CAD (coronary artery disease) Father CAD (coronary artery disease) Paternal Aunt Breast cancer Family history of problems with anesthesia: No Surgical History Surgical History H/O colonoscopy Gastric bypass status for obesity History of surgery S/P cholecystectomy History of Problems with Anesthesia: No Social History Social History Housing: House Patient Tobacco Use Status: Former Tobacco user e-Cigarette/Vaping Use: Never Used service: No Current occupational status: employed Cognitive needs: No Hearing needs: No Vision needs: Yes Meds Allergies Allergy/AdvReac Type Severity Reaction Status Date / Time Penicillins AdvReac rash Verified 06/13/24 14:32 Home Medications ?Medication ?Instructions ?Recorded ?Confirmed ?Last Taken ?Type albuterol sulfate 90 mcg/actuation 90 mcg inhalation DAILY 10/04/23 06/13/24 Unknown History aerosol inhaler inhalational spacing device #1 ea 10/04/23 06/13/24 Unknown History (ProChamber) tirzepatide (weight loss) 5 mg/0.5 5 mg subcut QWEEK 07/20/24 07/20/24 Unknown History mL subcutaneous pen injector (Zepbound) Exam Height,Weight and Vital Signs: Height 5 ft 2 in Weight 69.4 kg Assessment and Plan Assessment Anesthesia Assessment: Chart Reviewed Final Anesthetic Review Family History of Problems with Anesthesia: No History of Problems with Anesthesia: No
--- NOTE | 2024-07-24 04:13 | MHC.SHP ---
Pre-Procedural Eval Section A - 24 Hr Update-Section A only Date of Service: 07/24/24 Section B - Complete if H&P > 30 days Chief Complaint: screening Details of Present Illness: Surgical History S/P cholecystectomy Present Medications: see Short Stay Collaborative assessment Allergies: Allergies Allergy/AdvReac Type Severity Reaction Status Date / Time Penicillins AdvReac rash Verified 06/13/24 14:32 Review of Systems Review of Systems Comment: Ten point ROS negative Exam Exam Comment: Gen appear: No acute distress HEENT: no icterus Chest: No overt resp distress Abd: soft, nontender, nondistended Psych: Stable affect, answering questions appropriately Neuro: A/Ox3 noted to move all extremities spontaneously Ext: no peripheral edema Plan Diagnosis/Plan: Unchanged I have reviewed the history and physical and performed a pertinent physical examination on my patient. No changes have occurred unless specified. Time Spent With Patient Time: Total time managing care of this patient today ____ minutes.
[2024-07-24 06:41] VITALS: BMI 26.5
[2024-07-24] MEDS: Lactated Ringers 1,000 ML 100 ML IVCONT (06:53)
[2024-07-24 07:07] VITALS: BP 102/42; PULSE 67; RESP 18; TEMP 36.8; O2SAT 100
--- NOTE | 2024-07-24 07:12 | P.CONAN_ITS ---
[facility] Active Problems Active Problems: All Active Problems Non-cardiac chest pain (Acute) Recurrent cold sores (Acute) Colon cancer screening (Acute) Iron deficiency anemia (Chronic) Stress at home (Acute) Major depression, recurrent (Acute) Anxiety, generalized (Acute) Acute bronchitis (Acute) Herpes simplex (Acute) Vitamin D deficiency (Acute) History of gastric bypass (Acute) Pernicious anemia (Acute) Obesity due to excess calories (Acute) Encounter for general adult medical examination with abnormal findings (Acute) Past Medical History Medical History Anemia Functional capacity: independent ambulation Patient : No Family History Family History Sister Substance use disorder Brother NHL (non-Hodgkin's lymphoma) Brother CAD (coronary artery disease) Father CAD (coronary artery disease) Paternal Aunt Breast cancer Family history of problems with anesthesia: No Surgical History Surgical History H/O colonoscopy Gastric bypass status for obesity History of surgery S/P cholecystectomy History of Problems with Anesthesia: No Social History Social History Housing: House Are you a primary critical care physician to a significant other at home: No Do you presently have visiting nurse or other home services: No Patient Tobacco Use Status: Former Tobacco user e-Cigarette/Vaping Use: Never Used Have you been hit, kicked, punched, or otherwise hurt by someone within the past year? If so, by whom?: No Are you DNR?: No Advance Directives: No Advance Directives Information Provided: Yes Poor oral hygiene: No service: No Current occupational status: employed Cognitive needs: No Hearing needs: No Vision needs: Yes Meds Allergies Allergy/AdvReac Type Severity Reaction Status Date / Time Penicillins AdvReac rash Verified 07/24/24 07:09 Active Medications: Current Medications Lactated Ringer's (Lr) 1,000 mls @ 100 mls/hr IVCONT .Q10H DOM Last Admin: 07/24/24 06:53 Dose: 100 mls/hr Home Medications ?Medication ?Instructions ?Recorded ?Confirmed ?Last Taken ?Type inhalational spacing device #1 ea 10/04/23 07/24/24 Unknown History (ProChamber) tirzepatide (weight loss) 5 mg/0.5 5 mg subcut QWEEK 07/20/24 07/24/24 07/14/24 History mL subcutaneous pen injector (Zepbound) Exam Exam Date and Time: 07/24/2024 Height,Weight and Vital Signs: Height 5 ft 2 in Weight 65.771 kg Last Vital Signs Temp 98.3 F 07/24/24 07:07 Pulse 67 07/24/24 07:07 Resp 18 07/24/24 07:07 BP 102/42 L 07/24/24 07:07 Pulse Ox 100 07/24/24 07:07 O2 Del Method Room Air 07/24/24 07:07 Airway Mallampati Class: I TM Dist: >3cm Neck ROM: Full Loose/Missing/Broken Teeth: No Heart: rrr Lungs: cta Assessment and Plan Assessment Anesthesia Assessment: Anesthesia Plan Discussed and Chart Reviewed Final Anesthetic Review Family History of Problems with Anesthesia: No History of Problems with Anesthesia: No ASA Class: II Final Preanesthetic Review: No Changes in Pt Med Stat, Meds/Allgs Chart Reviewed, Consent Obtained/Reviewed and Anes Risks/Benef Reviewed Patient Risk: Low Anesthetic Plan Anesthetic Plan: MAC: Disposition: Standard PACU
[2024-07-24 08:37] VITALS: BP 111/64; PULSE 69; RESP 18; TEMP 36.9; O2SAT 100
--- NOTE | 2024-07-24 08:42 | P.OPN-COLO_ITS ---
Colonoscopy Operative Note Operative Note Date of Service: 07/24/24 Narrative: Procedure: Colonoscopy Indication: Anemia Endoscopist: Anayeli Montalvo MD Anesthesia Provider: Artem Ann MD Anesthesia type: MAC Instrument: Olympus [id number]-H190L Consent: Indication, risks vs benefits, and alternatives were discussed with the patient who gave written informed consent to proceed. EKG, pulse, pulse oximetry and blood pressure were monitored throughout the procedure. Please see anesthesia flowsheet. Procedure: The patient was brought to the procedure room and placed in the left lateral decubitus position. IV medications were administered by the anesthesia provider in attendance. A digital rectal exam was performed which was normal. A distal attachment cap was affixed to the tip of the colonoscope which was then inserted through the anus and advanced through the colon to the cecum. Mucosa was carefully examined under high definition white light as the instrument was slowly withdrawn in a retrograde panoramic fashion. Retroflexion was performed in rectum. The procedure was not difficult. There were no immediate obvious complications. The quality of the prep was BBPS: 2+2+2 = adequate Limitations: No limitations. Findings: Mucosa: Some liquid stool was noted in the transverse colon which was flushed out. Underlying mucosa appeared normal. Protruding lesions: * Medium to large internal hemorrhoids with stigmata of recent bleeding. Impression: 1. Normal colon mucosa 2. Internal hemorrhoids Recommendations: - Repeat colonoscopy in 5 years due to quality of prep
[2024-07-24 08:52] VITALS: BP 92/49; PULSE 72; RESP 18; TEMP 36.9; O2SAT 98
[2024-07-24 09:07] VITALS: BP 96/34; PULSE 63; RESP 18; TEMP 36.9; O2SAT 98
[2024-07-24 09:22] VITALS: BP 111/54; PULSE 72; RESP 18; TEMP 36.9; O2SAT 98
== END 2024-07-24 10:20 | disposition home or self-care (01) ==
PROVIDERS: PCP Internal Medicine; Visit Provider Internal Medicine
PROC: 0DJD8ZZ Inspection of Lower Intestinal Tract, Via Natural or Artificial Opening Endoscopic (ICD-10-PCS; CPT 45378; principal; 2024-07-24 07:30)
DX: D64.9 Anemia, unspecified (principal); K64.8 Other hemorrhoids; D50.9 Iron deficiency anemia, unspecified; D51.0 Vitamin B12 deficiency anemia due to intrinsic factor deficiency; F33.9 Major depressive disorder, recurrent, unspecified; F41.1 Generalized anxiety disorder; Z79.85 Long-term (current) use of injectable non-insulin antidiabetic drugs; Z79.899 Other long term (current) drug therapy; Z88.0 Allergy status to penicillin; Z90.49 Acquired absence of other specified parts of digestive tract; Z98.84 Bariatric surgery status; Z87.891 Personal history of nicotine dependence
CPT/HCPCS: 45378; J2003; J2704

== ENCOUNTER → 2024-07-24 06:37 | Outpatient (BNV) | payer OTHER, SELFPAY | PROVIDERS: PCP Internal Medicine; Visit Provider Internal Medicine | DX: K64.8 Other hemorrhoids (principal); Z91.199 Patient's noncompliance with other medical treatment and regimen due to unspecified reason | CPT/HCPCS: 45378 ==

== ENCOUNTER 2024-12-14 14:41 | Outpatient (AMB) | payer OTHER, SELFPAY ==
--- OUTSIDE RECORDS SUMMARY | 2024-12-14 14:45 | XMS_ITS | Encounter Summary ---
Author Organization [facility] Address [address] [place] [address] Care Team Providers Care Residential Builder Name Role Phone Tracey Spear MANAGER CUSTOM Primary Care Provider [phone] Tracey Spear MANAGER CUSTOM Unavailable Andra Ramirez MD Unavailable [phone] Reason for Visit * Reason Comments Medication Refill Encounter Details Date Type Department Care Team (Late st Contact Info) Description 03/04/2020 Refill [facility] [place] [address] [place] [phone] Tracey Spear, MANAGER CUSTOM [address] [place] [address] Herpes labialis Social History Tobacco Use Types [...] of Binge Drinking Not on file 10/13 Comments No Sex and Gender Information Value Date Recorded Sex Assigned at Not on file Legal Sex Female 5:42 PM EDT Gender Identity Female 05/22/2021 6:42 AM EST Sexual Orientation Heterosexual (straight) 05/22 6:42 AM EST documented as of this encounter Plan of Treatment Not on file documented as of this encounter Visit Diagnoses Diagnosis Herpes labialis Herpes simplex without mention of complication documented in this encounter Care Teams Residential Builder Relationship Specialty Start Date End Date Tracey Spear APRN PCP - General Family Medicine 09/30/17 06/10/22 Tracey Spear APRN [address] [place] [address] PCP - [employer] Attributed 02/12/20 10/11/20 Andra Ramirez MD [address] [facility] [address] [place] [address] Referring Provider Gynecology 09/19/20 documented as of this encounter
--- OUTSIDE RECORDS SUMMARY | 2024-12-14 14:45 | XMS_ITS | Encounter Summary ---
Author Organization [facility] Address [address] [place] [address] Care Team Providers Care Dining Car Steward Name Role Phone Tracey Spear BANANA EXPERT Primary Care Provider [phone] Tracey Spear BANANA EXPERT Unavailable Andra Ramirez MD Unavailable [phone] Encounter Details Date Type Department Care Team (Late st Contact Info) Description 09/03/2020 Telephone [facility] [address] [place] [address] Tracey Spear, BANANA EXPERT [address] [place], [place] [phone] Social History Tobacco Use Types Packs/Day Years [...] on filedocumented in this encounter Care Teams Dining Car Steward Relationship Specialty Start Date End Date Tracey Spear APRN PCP - General Family Medicine 09/30/17 06/10/22 Tracey Spear APRN [address] [place] [address] PCP - [employer] Commercial Attributed 02/12/20 10/11/20 Andra Ramirez MD [address] [facility] [address] [place] [address] Referring Provider Gynecology 09/19/20 documented as of this encounter
--- OUTSIDE RECORDS SUMMARY | 2024-12-14 14:45 | XMS_ITS | Encounter Summary ---
Author Organization [facility] Address [address] [place] [address] Care Team Providers Care Contract Coordinator Name Role Phone Tracey Spear MINING ANALYST Primary Care Provider [phone] Andra Ramirez MD Unavailable [phone] Encounter Details Date Type Department Care Team (Late st Contact Info) Description 04/09/2021 Scanned Document [facility] [address] [place] [phone] Tracey Spear, MINING ANALYST [address] [place] [address] Social History Tobacco Use Types Packs/Day Years [...] Date Recorded PHQ-2 Total Score 0 09/19/2020 Comments No Sex and Gender Information Value Date Recorded Sex Assigned at Not on file Legal Sex Female 5:42 PM EDT Gender Identity Female 05/22/2021 6:42 AM EST Sexual Orientation Heterosexual (straight) 05/22 6:42 AM EST documented as of this encounter Plan of Treatment Not on file documented as of this encounter Visit Diagnoses Not on filedocumented in this encounter Care Teams Contract Coordinator Relationship Specialty Start Date End Date Tracey Spear APRN PCP - General Family Medicine 09/30/17 06/10/22 Andra Ramirez MD [address] [place] [address] Referring Provider Gynecology 09/19/20 documented as of this encounter
--- OUTSIDE RECORDS SUMMARY | 2024-12-14 14:45 | XMS_ITS | Clinical Summary ---
Author Organization [facility] Address [address] [place] [address] Care Team Providers Care Line Palletizer Name Role Phone Andra Ramirez MD Unavailable [phone] Allergies Active Allergy Reactions Criticality Noted Date Comments Penicillins Rash/Dermatitis Low 11/18/2016 Medications ergocalciferol (ERGOCALCIFEROL ) 26195 units capsuleIndicati ons:Vitamin D deficiency Take 1 capsule (50,000 Units total) by mouth once a week. 12 capsule 1 9 Active clobetasol (TEMOVATE) 0.05 % ointment APPLY TOPICALLY TO THE AFFECTED AREA 1 TIME A WEEK 1 Active Insulin Pen Needle 31G X 5 MM MiscIndications :Morbid obesity with BMI of 40.0-44.9, adult (HCC) Inject 1.8 mg of saxenda daily subcutaneous E66.01 100 pen needle 1 1 Active ferrous sulfate 220 mg/5 mL solutionIndicat ions:Iron deficiency anemia, unspecified iron deficiency anemia type Take 7.4 mL (325 mg total) by mouth 3 (three) times a day. TAKE 1 1/2 TSP. TID 666 mL 1 1 Active valACYclovir (VALTREX) 1000 MG tabletIndicatio ns:Herpes labialis TAKE 2 TABLETS BY MOUTH TWICE DAILY 30 tablet 1 Active doxycycline (VIBRA-TABS) 100 MG tablet Take 100 mg by mouth 2 (two) times a day. for 10 days 1 Active buPROPion (WELLBUTRIN XL) 150 MG 24 hr tabletIndicatio ns:Class 3 severe obesity due to excess calories without serious comorbidity with body mass index (BMI) of 40.0 to 44.9 in adult (HCC),Depressed mood Take 1 tablet (150 mg total) by mouth every morning. Swallow whole; do not crush, chew, or divide. 90 tablet 1 1 Active cyanocobalamin (VITAMIN B-12) 1000 MCG/ML injectionIndica tions:Vitamin B12 deficiency Inject 1 mL (1,000 mcg total) under the skin every 30 days (once a month). 30 mL 1 2 Active Insulin Syringe-Needle U-100 25G X 1 1 ML MiscIndications :Vitamin B12 deficiency Inject 1000 mcg of vit b12 IM monthly 12 each 1 2 Active cholecalciferol (CHOLECALCIFERO L) 1.25 MG (08864 UT) capsuleIndicati ons:Vitamin D deficiency TAKE 1 CAPSULE BY MOUTH 1 TIME A WEEK 12 capsule 1 2 Active Hospital, Clinic, or Other Facility Administered [...] Pain of left heel 12/13/2016 09/19/2020 Immunizations Immunization Administration Dates Next Due Covid-19 MRNA Vaccine - Pfiz er 12+ (Purple Cap) 02/01/2021,06/24/2020,06/03/2020 Influenza (AFLURIA/FLUZONE) Inactivated/Split Quadrivalent with Preservative IM 01/14/2010 Influenza Inactivated/Split Preservative Free IM 03/09/2021,01/08/2020 Pneumococcal Polysaccharide 23-Valent 01/14/2010 Family History Medical History Relation Name Comments Heart attack Brother KUN Prostate cancer Father Diabetes Mother Heart disease Mother Heart disease Sister BRIDGETTE Relation Name Status Comments Brother KUN Father Mother Sister BRIDGETTE Alive Social History [...] 80 07/09/2021 4:18 PM EDT Temperature 36.7 C (98 F) 07/09/2021 4:18 PM EDT Respiratory Rate 16 [...] (2 of 2 - PCV) 01/14/2011 01/14/2010 Pap Smear (Ages 21-65) 09/21/2021 9, 09/19/2018 (Previously Completed) Lipid Panel 06/26/2022 06/26/2021, 11/12, 09/13/2020, Additional history exists FIT-DNA COLOGUARD 04/09/2024 04/09/2021 Influenza Vaccine 10/12/2024 03/09/2021, , 01/14/2010 COVID-19 Vaccine ( season) 2024 02/01/2021, 06/24/2020, 06/03/2020 RSV Vaccine 60 years and older and Patients (1 - 1-dose 75+ series) 07/08/2035 Hepatitis C Virus Screening Completed 06/26/2021, 11/25/2020 [...] AM EDT) Cholesterol, Total 117 <200 mg/dL [facility] Cholesterol, HDL 42(L) > OR = 50 mg/dL [facility] Triglycerides 58 <150 mg/dL [facility] LDL Cholesterol 62 mg/dL (calc) [facility] Comment: Reference range: <100 Desirable range <100 mg/dL for primary prevention; <70 mg/dL for patients with CHD or diabetic patients with > or = 2 CHD risk factors. LDL-C is now calculated using the Bonnie calculation, which is a validated novel method providing better accuracy than the Friedewald equation in the estimation of LDL-C. Alejo FERNANDEZ et al. KANDY. 2013;310(19): 6778-9755 (http://education.[employer]lika/faq/GJB094) Cholesterol/HDL Ratio 2.8 <5.0 (calc) [facility] Non HDL Chol. (LDL+VLDL) 75 <130 mg/dL (calc) [facility] Comment: For patients with diabetes plus 1 major ASCVD risk factor, treating to a non-HDL-C goal of <100 mg/dL (LDL-C of <70 mg/dL) is considered a therapeutic option. Blood specimen (specimen) 06/26/2021 7:41 AM EDT 06/26/2021 7:41 AM EDT Narrative [facility] - 06/27/2021 1:38 AM EDT FASTING:YES FASTING: YES Tracey Spear APRN LAB BLOOD ORDERABLES [place] Result Performing Organization Address [facility] Co de Phone Number [employer] [address] [place] [address], [facility] [place] [address] * Hepatitis C Antibody (06/26/2021 7:39 AM EDT) Hepatitis C Antibody NON-REACT NEAL NON-REACT NEAL [facility] Hepatitis C Antibody (s/co) 0.14 <1.00 [facility] Comment: HCV antibody was non-reactive. There is no laboratory evidence of HCV infection. In most cases, no further action is required. However, if recent HCV exposure is suspected, a test for HCV RNA (test code 69572) is suggested. For additional information please refer to http://education.[employer]/faq/SHG60f4 (This link is being provided for informational/ educational purposes only.) Blood specimen (specimen) Blood specimen / Unknown 06/26/2021 7:39 AM EDT 06/26/2021 7:40 AM EDT Narrative [facility] - 06/27/2021 2:06 AM EDT FASTING:YES FASTING: YES Tracey Spear APRN LAB BLOOD ORDERABLES [place] Result Performing Organization Address [facility] Co de Phone Number [employer] [address] [place] [address], [place] [address] * PATHOLOGY GYNECOLOGY (09/21/2018) us External Provider MD [facility] HX PATH PROCEDURES [place] Result from Last 3 Months or Most Recently Relevant to Health Maintenance [place] [id number] [facility] Care Teams Line Palletizer Relationship Specialty Start Date End Date Andra Ramirez MD [address] [place] [address] Referring Provider Gynecology 09/19/20
--- OUTSIDE RECORDS SUMMARY | 2024-12-14 14:46 | XMS_ITS | Encounter Summary ---
Author Organization [facility] Address [address] [place] [address] Care Team Providers Care Miter Saw Operator Name Role Phone Tracey Spear BARGE WORKER Primary Care Provider [phone] Andra Ramirez MD Unavailable [phone] Encounter Details Date Type Department Care Team (Late st Contact Info) Description 01/19/2021 Scanned Document [facility] [address] [place] [phone] Tracey Spear, BARGE WORKER [address] [place] [address] Social History Tobacco Use Types Packs/Day Years [...] on filedocumented in this encounter Care Teams Miter Saw Operator Relationship Specialty Start Date End Date Tracey Spear APRN PCP - General Family Medicine 09/30/17 06/10/22 Andra Ramirez MD [address] [place] [address] Referring Provider Gynecology 09/19/20 documented as of this encounter
--- OUTSIDE RECORDS SUMMARY | 2024-12-14 14:46 | XMS_ITS | Patient Health Record ---
Author Organization [facility] Address [address] [address] Care Team Providers Care Division Director Name Role Phone SHADE MELENDEZ Primary Care Provider Andra Farooq Unavailable [phone] Allergies Allergen (clinical drug ingredient) Drug/Non Drug Allergy documented on EMR Reaction Allergy Type Onset Date Status Penicillin Unknown Drug Allergy Active Reason For Referral No Information Medications Medication SIG (Take, Route, Frequency, Duration) Notes Start Date End Date Status Zepbound 5 MG/0.5ML 0.5 mL Subcutaneous Once a week Active Probiotic - as directed Orally Active Estradiol Vaginal Cream 0.01% 1 Gram to the affected area Vaginal/Vulva Twice a week; Duration: 90 Days 07/27/2024 Active Clobetasol Propionate 0.05 % 1 application to affected area Externally once a night x 1month then thrice a week; Duration: 90 days 02/23/2024 Active valACYclovir HCl 1 GM 1 tablet Orally On ce a day; Duration: 1 days Active Cyanocobalamin 1000 MCG/ML Injection; Duration: 90 Active Social History Tobacco Use: Social [...] Status Risk Notes Problem Postmenopausal atrophic vaginitis (94770724) Postmenopausal atrophic vaginitis (N95.2) Active confirmed Problem Age-related osteoporosis (991755933) Age-related osteoporosis without current pathological fracture (M81.0) Active confirmed Problem Morbid obesity (disorder) (912874151) Morbid (severe) obesity due to excess calories (E66.01) Active confirmed Problem Localized morphea (126210981) 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) Active confirmed Problem Atrophy of vulva (254082208) Atrophy of vulva (N90.5) Active confirmed Problem Vitamin D deficiency (91031544) Vitamin D deficiency, unspecified (E55.9) Active confirmed Problem Menopausal symptom (03954586) Symptomatic menopausal or female climacteric states (627.2) Active confirmed Major Problem Postmenopausal atrophic vaginitis (96028913) Postmenopausal atrophic vaginitis (627.3) Active confirmed Diag Problem Gynecological examination normal (994257590265613) Routine gynecological examination (V72.31) Active confirmed Problem Screening for malignant neoplasm of colon (497493340) Special screening for malignant neoplasms, colon (V76.51) Active confirmed Major Vital Signs Temperature 97.9 degrees Fahrenheit 11/30/2024 Blood pressure diastolic 62 mm Hg 11/30/2024 Height 61.25 in 11/30/2024 Blood pressure systolic 100 mm Hg 11/30/2024 Weight 141 lbs 11/30/2024 BMI 26.42 kg/m2 11/30/2024 Encounters Encounter Location Date Provider Diagnosis [place] [address] [place] [address] [address] 02/23/2024 Andra Ramirez Encounter for gynecological examination (general) (routine) without abnormal findings Z01.419 ; Encounter for screening mammogram for malignant neoplasm of breast Z12.31 ; Lichen sclerosus et atrophicus L90.0 ; Atrophy of vulva N90.5 ; Postmenopausal atrophic vaginitis N95.2 and Other specified disorders of bone density and structure, multiple sites M85.89 [place] [address] [place] [address] [address] 04/06/2024 Andra Ramirez Lichen sclerosus et atrophicus L90.0 [place] [address] [address] 07/27/2024 Andra Ramirez Lichen sclerosus et atrophicus L90.0 ; Atrophy of vulva N90.5 and Other specified disorders of bone density and structure, multiple sites M85.[address] [address] 11/30/2024 Andra Ramirez Age-related osteoporosis without current pathological fracture M81.[address] [address] 10/22/2024 Andra Ramirez Age-related osteoporosis without current pathological fracture M81.[address] [address] 11/14/2024 Andra Ramirez [address] [address] 11/30/2024 Andra Ramirez Assessments Encounter Date Diagnosis (ICD Code) Assessment [...] MONTHLY AND INCREASE OR DECREASE DOSE NEEDED. 07/27/2024 Lichen sclerosus et atrophicus (ICD-10 - L90.0) SHOWED PAT IMPROVEMENT USING A HAND MIRROR. CONTINUE MAINTENANCE DOSE, APPLY THIN FILM TWICE WEEKLY. DETAILED INSTRUCTIONS WERE GIVEN. CHECK VULVA Q 2 MONTHS AND INCREASE OR DECREASE DOSE NEEDED. 10/22/2024 Age-related osteoporosis without current pathological fracture (ICD-10 - M81.0) 11/30/2024 Age-related osteoporosis without current pathological fracture (ICD-10 - M81.0) DISCUSSED PROGRESSIVELY WORSENING T-SCORES AND OSTEOPOROSIS AND ITS NEGATIVE IMPACT ON HER HEALTH. ADEQUATE CALCIUM AND VIT D. WEIGHT BEARING EXERCISES. OSTEO PRECAUTIONS. SEND RECORDS TO PCP AND DISCUSS TX OPTIONS. 02/23/2024 Encounter for screening mammogram for malignant neoplasm of breast (ICD-10 - Z12.31) REGULAR MAMMOGRAMS AND SBE'S WERE RECOMMENDED. 07/27/2024 Atrophy of vulva (ICD-10 - N90.5) DISCUSSED VULVAR ATROPHY AND ITS NEGATIVE EFFECTS. APPLY ESTRADIOL CREAM ALONG VULVA TWICE WEEKLY. DETAILED INSTRUCTIONS WERE GIVEN. 02/23/2024 Lichen sclerosus et atrophicus (ICD-10 - L90.0) SHOWED PAT RECURRENCE OF LESIONS USING A HAND MIRROR. EMPHASIZED THE NEED FOR THE PAT TO TAKE THIS DISEASE SERIOUSLY AND TO FOLLOW INSTRUCTIONS CLOSELY. RX AND DETAILED INSTRUCTIONS FOR CLOBETASOL OINTMENT WERE GIVEN. 07/27/2024 Other specified disorders of bone density and structure, multiple sites (ICD-10 - M85.89) REPEAT BMD THIS YEAR. ADEQUATE CALCIUM AND VIT D. WEIGHT BEARING EXERCISES. 02/23/2024 Atrophy of vulva (ICD-10 - N90.5) [...] 10/08/2019 BONE DENSITY 10/10/2020 BONE DENSITY 12/07/2021 BONE DENSITY 07/27/2024 MM Digital Mammo Screening 12/17/2022 MM Digital Mammo Screening 02/23/2024 MM Digital Mammo Screening 12/07/2021 MM Digital Mammo Screening 10/10/2020 [id number] 10/22/2024 CBC With Differential/Platelet-[id number] PTH, Intact-[id number] 10/22/2024 Vitamin D, 79-Efgkwvs-[id number] 10/22/2024 Comp. Metabolic Panel ([id number] 2024 Next Appt Details Provider Name:Andra elizabeth, 02/28/2025 03:00:00 PM, [address] [facility], [address], [place], [address], Insurance Providers Payer Name Payer Address Payer Phone Subscriber Number Group Number Insured Name Patient Relationship to Insured Coverage Start Date Coverage End Date [facility] [address] [place] [place] [address] [id number] ADRIAN GOODMAN Self - patient is the [...] densit y and structure, multiple sites M85.89 Age-related osteoporosis without current pathological fracture M81.0 Surgical History Surgery Date(Month/Year) Bilateral Tubal Ligation Section x 3 Cholecystectomy Gastric Bypass Colonoscopy 2006 Vulvar Biopsy - Lichen Sclerosus 2017 Hospitalization History Reason Date(Month/Year) See Surgical Hx
--- OUTSIDE RECORDS SUMMARY | 2024-12-14 14:46 | XMS_ITS ---
Author Name [facility] Organization Unknown Encounters Encounter Type Encounter Reason Primary Diagnosis Location Date Ambulatory Morbid (severe) obesity due to excess calories [facility] 07/09/2021 Ambulatory Morbid (severe) obesity due to excess calories [facility] 05/20/2021 Ambulatory Other symptoms a nd signs involving emotional state [facility] 03/09/2021 Care Team Organization Name Specialty Phone Email Start Date End Da te [facility] Tracey Spear Primary Care 07/09/20212023 [facility] Tracey Spear Primary Care 03/09/20212020
--- OUTSIDE RECORDS SUMMARY | 2024-12-14 14:46 | XMS_ITS | Encounter Summary ---
Author Organization [facility] Address [address] [place] [address] Care Team Providers Care Pricing Consultant Name Role Phone Tracey Spear AMALGAMATOR Primary Care Provider [phone] Tracey Spear AMALGAMATOR Unavailable Andra Ramirez MD Unavailable Reason for Visit * Reason Comments Other Encounter Details Date Type Department Care Team (Late st Contact Info) Description 10/02/2020 [facility] [address] [place] [address] Tracey Spear, AMALGAMATOR [address] [place], [place] [phone] Other Social History Tobacco Use Types Packs/Day [...] on filedocumented in this encounter Care Teams Pricing Consultant Relationship Specialty Start Date End Date Tracey Spear APRN PCP - General Family Medicine 09/30/17 06/10/22 Tracey Spear APRN [address] [place] [address] PCP - [employer] Commercial Attributed 02/12/20 10/11/20 Andra Ramirez MD [address] [facility] [address] [place] [address] Referring Provider Gynecology 09/19/20 documented as of this encounter
--- OUTSIDE RECORDS SUMMARY | 2024-12-14 14:46 | XMS_ITS | Encounter Summary ---
Author Organization [facility] Address [address] [place] [address] Care Team Providers Care Feather Stitcher Name Role Phone Tracey Spear TRANSCRIBING OPERATORS SUPERVISOR Primary Care Provider [phone] Tracey Spear TRANSCRIBING OPERATORS SUPERVISOR Unavailable Andra Ramirez MD Unavailable Reason for Visit * Reason Comments Medication Problem Encounter Details Date Type Department Care Team (Late st Contact Info) Description 09/22/[facility] [address] [place] [address] Tracey Spear, TRANSCRIBING OPERATORS SUPERVISOR [address] [place], [place] [phone] Medication Problem Social History Tobacco Use Types [...] to her pharmacy. Pharmacy info: [facility] in [place] contact info:[phone] documented in this encounter Plan of Treatment Not on file documented as of this encounter Visit Diagnoses Not on filedocumented in this encounter Care Teams Feather Stitcher Relationship Specialty Start Date End Date Tracey Spear APRN PCP - General Family Medicine 09/30/17 06/10/22 Tracey Spear APRN [address] [place] [address] PCP - [employer] Commercial Attributed 02/12/20 10/11/20 Andra Ramirez MD [address] [place] [address] Referring Provider Gynecology 09/19/20 documented as of this encounter
--- OUTSIDE RECORDS SUMMARY | 2024-12-14 14:46 | XMS_ITS | Encounter Summary ---
Author Organization [facility] Address [address] [place] [address] Care Team Providers Care Product Line Manager Name Role Phone Tracey Spear SAUSAGE LINKER Primary Care Provider [phone] Tracey Spear APRN Unavailable Andra Ramirez MD Unavailable Encounter Details Date Type Department Care Team (Late st Contact Info) Description 10/08/2020 Documentation [facility] [address] [place] [phone] Estephanie Chaidez [place] [address] [place], [place] [address] Social History Tobacco Use Types Packs/Day Years [...] on filedocumented in this encounter Care Teams Product Line Manager Relationship Specialty Start Date End Date Tracey Spear APRN PCP - General Family Medicine 09/30/17 06/10/22 Tracey Spear APRN [facility] [place] [address] PCP - [employer] Commercial Attributed 02/12/20 10/11/20 Andra Ramirez MD [address] [facility] [address] [place] [address] Referring Provider Gynecology 09/19/20 documented as of this encounter
--- OUTSIDE RECORDS SUMMARY | 2024-12-14 14:46 | XMS_ITS | Encounter Summary ---
Author Organization [facility] Address [address] [place] [address] Care Team Providers Care Compliance Specialist Name Role Phone Tracey Spear MANAGER PACU Primary Care Provider [phone] Andra Ramirez MD Unavailable [phone] Reason for Visit * Reason Comments Medication Refill Encounter Details Date Type Department Care Team (Late st Contact Info) Description 03/15/2021 [facility] [address] [place] [address] Tracey Spear, MANAGER PACU [address] [place], [place] [address] Morbid obesity with BMI of 40.0-44.9, adult [...] (HCC) documented in this encounter Care Teams Compliance Specialist Relationship Specialty Start Date End Date Tracey Spear APRN PCP - General Family Medicine 09/30/17 06/10/22 Andra Ramirez MD [address] [facility] [address] [place] [address] Referring Provider Gynecology 09/19/20 documented as of this encounter
--- OUTSIDE RECORDS SUMMARY | 2024-12-14 14:46 | XMS_ITS | Encounter Summary ---
Author Organization [facility] Address [address] [place] [id number] Care Team Providers Care Director Life Insurance Name Role Phone Tracey Spear PROCESS SAFETY ENGINEERING TECHNOLOGIST Primary Care Provider [phone] Andra Ramirez MD Unavailable [phone] Encounter Details Date Type Department Care Team (Late st Contact Info) Description 01/01/2021 Scanned Document [facility] [address] [place] [phone] Tracey Spear, PROCESS SAFETY ENGINEERING TECHNOLOGIST [address] [place] [phone] Social History Tobacco Use Types Packs/Day Years [...] on filedocumented in this encounter Care Teams Director Life Insurance Relationship Specialty Start Date End Date Tracey Spear, PROCESS SAFETY ENGINEERING TECHNOLOGIST PCP - General Family Medicine 09/30/17 06/10/22 Andra Ramirez MD [address] [place] [address] Referring Provider Gynecology 09/19/20 documented as of this encounter
--- OUTSIDE RECORDS SUMMARY | 2024-12-14 14:46 | XMS_ITS | Clinical Summary ---
Author Organization [facility] Address [address] [place] [address] Care Team Providers Care Medical Management Specialist Name Role Phone Unavailable Primary Care Provider Unavailabl e Social History Tobacco Use Types Packs/Day Years Used Date Smoking Tobacco: Never Assessed Sex and Gender Information Value Date Recorded Sex Assigned at Not on file Gender Identity Not on file Sexual Orientation Not on file Plan of Treatment Not on file
--- NOTE | 2024-12-14 14:47 | MHC.PC.OV ---
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 Allergies Penicillins Adverse Reaction (Verified 12/14/24 14:49) rash Medication List - Last Reconciled 12/14/24 by Martha De La Cruz MD cholecalciferol (vitamin D3) 25 mcg PO DAILY 90 days cyanocobalamin (vitamin B-12) 1,000 mcg IM Q4W 90 days escitalopram oxalate (Lexapro) 10 mg PO DAILY inhalational spacing device (ProChamber) As directed mirtazapine 15 mg PO BEDTIME syringe with needle, safety (BD Integra Syringe) Use to administer B12 injections IM tirzepatide (weight loss) (Zepbound) 5 mg subcut QWEEK valacyclovir 500 mg PO ONCE 90 days Tobacco use date assessed: 06/13/24 Dental Screening Dental Screen Date: 06/13/24 HPI 6m follow up HPI Details The patient is a 64-year-old female presenting for chronic anxiety management and osteoporosis assessment. and other health related issues Chronic Anxiety: - The patient has been taking Lorazepam 0.5 mg every night for anxiety management for about one year. - The anxiety treatment began following emotional distress after a breakup with her fianc?. - The patient acknowledges a fear of stopping the medication due to its calming effects. - Lorazepam has been effective, I expresses concern about dependency and it is a controlled medication. - Previous discussions about cutting down the medication were considered, but the patient decided to continue with the current regimen. Osteoporosis: - A recent bone density test indicated a diagnosis of osteoporosis. 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 - The patient sustained rib fractures in the past year following a fall, suggestive of declining bone density. - No previous medication or treatment for osteoporosis was reported. B12 def, managed by B12 Injections Medications: - Lexapro 10 mg, daily for mood stabilization. - Lorazepam 0.5 mg, nightly for anxiety. - Valacyclovir for cold sore prevention (referred to as a blue pill). - Vitamin D 3000 mg daily, recommended by CITY DESIGNER. - B12 injections monthly at work. Social History: - Receives monthly B12 injections through the [facility]. - Previously involved but had a significant breakup, contributing to anxiety. - Mention of having three children, with one experiencing thyroid cancer. Family History: - Daughter with a history of thyroid cancer, resulting in partial thyroidectomy. Problem List - Chronic Anxiety - Osteoporosis - Subclinical Hypothyroidism - slightly elevated TSH and family Hx of thyroid Ca Diagnostic results - TSH level at 4.90, slightly above normal range. - Bone density test consistent with osteoporosis diagnosis, worsening since 2017. Plan - Continue Lexapro 10 mg daily for mood support. - Transition from Lorazepam 0.5 mg to Mirtazepen 15 mg for anxiety/sleep, starting with half a tablet, increasing as needed. Monitor effectiveness and side effects. - Initiate Fosamax weekly for osteoporosis treatment with instructions to be taken on an empty stomach, avoiding laying down post-administration to prevent esophageal irritation. - Begin Levothyroxine after stabilizing with mirtazpine and fosamax to address subclinical hypothyroidism, as thyroid hormone supplementation may assist with both bone health and metabolic balance. - Schedule an ultrasound of the thyroid due to the family history of thyroid cancer. f/u after reports Review of Systems General: No fever no chills neurological: No headaches no dizziness ear nose throat: No sore throat no hearing difficulty no ear pain cardiovascular: No syncope, no chest pain, no palpitations gastrointestinal: No nausea vomiting or diarrhea endocrine: No polyuria polydipsia no heat intolerance genitourinary: No dysuria skin: No new complaints Physical Exam general: No acute distress HEENT: No acute findings neck: Supple respiratory system: Able to talk in full sentences, no audible wheeze no stridor cardiovascular: S1-S2 RRR gastrointestinal: No pain extremities: No new findings 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: Alert awake oriented x3 motor sensory intact skin: Normal turgor PFSH Medical History Depression Anemia Surgical History H/O colonoscopy Gastric bypass status for obesity History of surgery S/P cholecystectomy Family History Sister Substance use disorder Brother NHL (non-Hodgkin's lymphoma) Brother CAD (coronary artery disease) Father CAD (coronary artery disease) Paternal Aunt Breast cancer Social History Housing: House Are you a primary healthcare administration internship to a significant other at home: No Do you presently have visiting nurse or other home services: No Patient Tobacco Use Status: Former Tobacco user e-Cigarette/Vaping Use: Never Used service: No Current occupational status: employed Cognitive needs: No Hearing needs: No Vision needs: Yes Questionnaire PHQ-9 Over the last 2 weeks, how often have you been bothered by any of the following problems? 1. Little interest or pleasure in doing things: not at all 2. Feeling down, depressed, or hopeless: not at all 3. Trouble falling or staying asleep, or sleeping too much: not at all 4. Feeling tired or having little energy: not at all 5. Poor appetite or overeating: not at all 6. Feeling bad about yourself - or that you are a failure or have let yourself or your family down: not at all 7. Trouble concentrating on things, such as reading the newspaper or watching television: not at all 8. Moving or speaking so slowly that other people could have noticed. Or the opposite - being so fidgety or restless that you have been moving around a lot more than usual: not at all 9. Thoughts that you would be better off or of hurting yourself in some way: not at all Total score: 0 Depression Screening Interpretation: Negative Depression Screening Done: Yes 13584 - PHQ-9 Billing: Yes Source: Developed by Drs. Eliceo Carvalho, Yuly White, Modesto Maguire and colleagues, with an educational jl from [employer]. Thrive Questionnaire Date Thrive assessed: 06/11/24 I am a: Patient What is your living situation today?: I have a steady place to live Within the past 12 months, did the food you bought not last and you didn't have the money to get more?: Never true Within the past 12 months, did you worry whether your food would run out before you got money to buy more?: Never true Do you have trouble paying for medicines?: No Do you have trouble getting transportation to medical appointments?: No Do you have trouble paying your heating and electricity bill?: No Do you have trouble taking care of your child, family member or friend?: No Do you have trouble with day-to-day activities such as bathing, preparing meals, shopping, managing finances, etc.?: No Are you currently unemployed and looking for a job?: No Are you interested in more education?: No Please select the resources that you would like help with: None Currently or been in a relationship where the following occur: No concerns reported THRIVE Score: 0 CONCETTA-7 AMB Questionnaire CONCETTA-7 Date CONCETTA - 7 assessed: 12/14/24 Feeling nervous, anxious, or on edge: 0 = Not at all Not being able to stop or control worryin = Not at all Worrying too much about different things: 0 = Not at all Trouble relaxin = Not at all Being so restless that it is hard to sit still: 0 = Not at all Becoming easily annoyed or irritable: 0 = Not at all Feeling afraid as if something awful might happen: 0 = Not at all Total CONCETTA-7 score (0-4 normal; 5-9 mild; 10-14 moderate; 15-21 severe): 0 Source: Developed by Drs. Eliceo Carvalho, Yuly White, Modesto Maguire and colleagues, with an educational jl from [employer]. CONCETTA-7 Assessment Billing CONCETTA-7 Assessment Tool: CONCETTA-7 Assessment 82655 Physical exam (Primary Care) Vital Signs: Last Vital Signs Temp 98.9 F 12/14/24 14:48 Pulse 70 12/14/24 14:48 Resp 16 12/14/24 14:48 BP 108/58 L 12/14/24 14:48 Pulse Ox 95 12/14/24 14:48 Oxygen Delivery Method Room Air 12/14/24 14:48 BMI result Body Mass Index 26.0 Tobacco/Smoking Status: Tobacco use Status Tobacco use date assessed 06/13/24 12/14/24 14:48 Patient Tobacco Use Status Former Tobacco user 12/14/24 14:48 e-Cigarette/Vaping Use Never Used 12/14/24 14:48 PHQ-9: PHQ-9 Score PHQ-9: Total score 0 12/15/24 16:48 Depression Screening Interpretation: Negative Thrive Assessment: Date of Thrive Assessment Date Thrive assessed 06/11/24 12/14/24 14:48 Currently or been in a relationship where the following occur: No concerns reported Coding Level of Care Code Est Pt Level 5 (57244) Diagnoses Other specified hypothyroidism E03.8 Difficulty sleeping G47.9 Anxiety, generalized F41.1 Age related osteoporosis, unspecified pathological fracture presence M81.0 Presence of current pathological fracture: unspecified Family history of thyroid cancer Z80.8 Pernicious anemia D51.0 Vitamin D deficiency E55.9 Recurrent major depressive disorder, in partial remission F33.41 Active/Remission status: in partial remission Additional Codes CONCETTA-7 Assessment Billing - CONCETTA-7 Assessment Tool: CONCETTA-7 Assessment 92132 ([id number]) PHQ-9 - 48931 - PHQ-9 Billing: Yes ([id number]) Time Spent (min) 40 Comment [id number]/review chart/imaging/documentation/coordination of care Assessment & Plan Assessment & Plan (1) Other specified hypothyroidism: Code(s): E03.8 - Other specified hypothyroidism Category: Medical (2) Difficulty sleeping: Code(s): G47.9 - Sleep disorder, unspecified Category: Medical (3) Anxiety, generalized: Code(s): F41.1 - Generalized anxiety disorder Category: Medical (4) Age related osteoporosis: Code(s): M81.0 - Age-related osteoporosis without current pathological fracture Category: Medical Qualifiers: Presence of current pathological fracture: unspecified Qualified Code(s): M81.0 - Age-related osteoporosis without current pathological fracture (5) Family history of thyroid cancer: Code(s): Z80.8 - Family history of malignant neoplasm of other organs or systems Category: Medical (6) Pernicious anemia: Code(s): D51.0 - Vitamin B12 deficiency anemia due to intrinsic factor deficiency Category: Medical (7) Vitamin D deficiency: Code(s): E55.9 - Vitamin D deficiency, unspecified Category: Medical (8) Major depression, recurrent: Code(s): F33.9 - Major depressive disorder, recurrent, unspecified Category: Medical Qualifiers: Active/Remission status: in partial remission Qualified Code(s): F33.41 - Major depressive disorder, recurrent, in partial remission Plan Physical Exam The patient is a 64-year-old female presenting for chronic anxiety management and osteoporosis assessment. Chronic Anxiety: - The patient has been taking Lorazepam 0.5 mg every night for anxiety management for about one year. - The anxiety treatment began following emotional distress after a breakup with her fianc?. - The patient acknowledges a fear of stopping the medication due to its calming effects. - Lorazepam has been effective, I expresses concern about dependency and it is a controlled medication. - Previous discussions about cutting down the medication were considered, but the patient decided to continue with the current regimen. Osteoporosis: - A recent bone density test indicated a diagnosis of osteoporosis. 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 - The patient sustained rib fractures in the past year following a fall, suggestive of declining bone density. - No previous medication or treatment for osteoporosis was reported. Medications: - Lexapro 10 mg, daily for mood stabilization. - Lorazepam 0.5 mg, nightly for anxiety. - Valacyclovir for cold sore prevention (referred to as a blue pill). - Vitamin D 3000 mg daily, recommended by CITY DESIGNER. - B12 injections monthly at work. Social History: - Receives monthly B12 injections through the [facility]. - Previously involved but had a significant breakup, contributing to anxiety. - Mention of having three children, with one experiencing thyroid cancer. Family History: - Daughter with a history of thyroid cancer, resulting in partial thyroidectomy. Problem List - Chronic Anxiety - Osteoporosis - Subclinical Hypothyroidism - slightly elevated TSH and family Hx of thyroid Ca Diagnostic results - TSH level at 4.90, slightly above normal range. - Bone density test consistent with osteoporosis diagnosis, worsening since 2017. Plan - Continue Lexapro 10 mg daily for mood support. - Transition from Lorazepam 0.5 mg to Mirtazepen 15 mg for anxiety/sleep, starting with half a tablet, increasing as needed. Monitor effectiveness and side effects. - Initiate Fosamax weekly for osteoporosis treatment with instructions to be taken on an empty stomach, avoiding laying down post-administration to prevent esophageal irritation. - Begin Levothyroxine after stabilizing with mirtazpine and fosamax to address subclinical hypothyroidism, as thyroid hormone supplementation may assist with both bone health and metabolic balance. - Schedule an ultrasound of the thyroid due to the family history of thyroid cancer. f/u after reports Orders: Orders US thyroid 12/14/24 E03.8 - Other specified hypothyroidism, Z80.8 - Family history of malignant neoplasm of other organs or systems Medications: New mirtazapine 15 mg PO BEDTIME 30 tabs 0RF alendronate (Fosamax) take on empty stomach and stay up right for 30 min 70 mg PO QWEEK 4 tabs 0RF levothyroxine (Euthyrox) take on empty stomach 25 mcg PO DAILY 90 tabs 0RF
[2024-12-14 14:48] VITALS: BP 108/58; PULSE 70; RESP 16; TEMP 37.2; O2SAT 95; BMI 26.0
== END 2024-12-14 15:12 | disposition home or self-care (01) ==
LOC: HO.HMCC 14:41
PROVIDERS: PCP Internal Medicine; Visit Provider Internal Medicine
DX: E03.8 Other specified hypothyroidism (principal); G47.9 Sleep disorder, unspecified; F41.1 Generalized anxiety disorder; M81.0 Age-related osteoporosis without current pathological fracture; Z80.8 Family history of malignant neoplasm of other organs or systems; D51.0 Vitamin B12 deficiency anemia due to intrinsic factor deficiency; E55.9 Vitamin D deficiency, unspecified; F33.41 Major depressive disorder, recurrent, in partial remission

== ENCOUNTER → 2024-12-14 14:41 | Outpatient (BNVA) | payer OTHER, SELFPAY | PROVIDERS: PCP Internal Medicine; Visit Provider Internal Medicine | DX: M81.0 Age-related osteoporosis without current pathological fracture (principal); E03.8 Other specified hypothyroidism; F41.1 Generalized anxiety disorder; D51.0 Vitamin B12 deficiency anemia due to intrinsic factor deficiency; E55.9 Vitamin D deficiency, unspecified; F33.41 Major depressive disorder, recurrent, in partial remission; Z80.0 Family history of malignant neoplasm of digestive organs | CPT/HCPCS: 96127 ==

== ENCOUNTER 2025-01-01 15:10 | Outpatient (AMB) | payer OTHER, SELFPAY ==
--- NOTE | 2025-01-01 15:14 | MHC.PC.OV ---
Intake Visit Reasons: depressed, gittery Allergies Penicillins Adverse Reaction (Verified 12/14/24 14:49) rash Tobacco use date assessed: 06/13/24 Dental Screening Dental Screen Date: 06/13/24 [facility] Medical History Depression Anemia Surgical History H/O colonoscopy Gastric bypass status for obesity History of surgery S/P cholecystectomy Family History Sister Substance use disorder Brother NHL (non-Hodgkin's lymphoma) Brother CAD (coronary artery disease) Father CAD (coronary artery disease) Paternal Aunt Breast cancer Social History Housing: House Are you a primary resident care associate to a significant other at home: No Do you presently have visiting nurse or other home services: No Patient Tobacco Use Status: Former Tobacco user e-Cigarette/Vaping Use: Never Used service: No Current occupational status: employed Cognitive needs: No Hearing needs: No Vision needs: Yes Questionnaire Thrive Questionnaire Date Thrive assessed: 06/11/24 I am a: Patient What is your living situation today?: I have a steady place to live Within the past 12 months, did the food you bought not last and you didn't have the money to get more?: Never true Within the past 12 months, did you worry whether your food would run out before you got money to buy more?: Never true Do you have trouble paying for medicines?: No Do you have trouble getting transportation to medical appointments?: No Do you have trouble paying your heating and electricity bill?: No Do you have trouble taking care of your child, family member or friend?: No Do you have trouble with day-to-day activities such as bathing, preparing meals, shopping, managing finances, etc.?: No Are you currently unemployed and looking for a job?: No Are you interested in more education?: No Please select the resources that you would like help with: None Currently or been in a relationship where the following occur: No concerns reported THRIVE Score: 0 CONCETTA-7 AMB Questionnaire CONCETTA-7 Date CONCETTA - 7 assessed: 12/14/24 Source: Developed by Drs. Eliceo Carvalho, Yuly White, Modesto Maguire and colleagues, with an educational jl from [employer]. Physical exam (Primary Care) Tobacco/Smoking Status: Tobacco use Status Tobacco use date assessed 06/13/24 12/14/24 14:48 Patient Tobacco Use Status Former Tobacco user 12/14/24 14:48 e-Cigarette/Vaping Use Never Used 12/14/24 14:48 Thrive Assessment: Date of Thrive Assessment Date Thrive assessed 06/11/24 12/14/24 14:48 Currently or been in a relationship where the following occur: No concerns reported Coding
[2025-01-01 15:22] VITALS: BP 104/60; PULSE 74; RESP 16; O2SAT 96; BMI 26.2
--- NOTE | 2025-01-01 15:22 | A.OFFPC_ITS ---
Vital Signs 01/01/25 15:22 Height 5 ft 2 in Weight 143 lb BMI 26.2 BP 104/60 Blood Pressure Location Lt brachial Position Sitting Respiration 16 Pulse 74 Pulse Source Pulse Oximeter Pulse Oximetry (%) 96 Oxygen Delivery Method Room Air Intake Visit Reasons: federica cantu Chimney Sweeper Required: No Accompanied by: Self / Same As Patient Allergies Penicillins Adverse Reaction (Verified 01/01/25 15:24) rash Medication List - Last Reconciled 01/01/25 by Martha De La Cruz MD cholecalciferol (vitamin D3) 25 mcg PO DAILY 90 days cyanocobalamin (vitamin B-12) 1,000 mcg IM Q4W 90 days escitalopram oxalate (Lexapro) 10 mg PO DAILY inhalational spacing device (ProChamber) As directed levothyroxine (Euthyrox) 25 mcg PO DAILY syringe with needle, safety (BD Integra Syringe) Use to administer B12 injections IM tirzepatide (weight loss) (Zepbound) 5 mg subcut QWEEK valacyclovir 500 mg PO ONCE 90 days Tobacco use date assessed: 01/01/25 Fall risk assessment: No Falls in past year Dental Screening Dental Screen Date: 06/13/24 Did you have a dental visit in the last 12 months?: Yes Did you have a dental problem in the last 6 months where you did not have access to dental care?: No Was dental information given to patient?: Patient has dentist HPI federica cantu HPI Details History of Present Illness The patient is a 64-year-old female presenting with medication management issues related to anxiety and depression. Issues with Mirtazepine: - The patient reports adverse effects af ter taking Med, which was prescribed to aid sleep due to sleep disturbances. - Experiences included severe disorienta tion lasting two days, which occurred while on vacation, leading her to discontinue the medication independently. Lexapro for Anxiety or Depression: - The patient began Lexapro treatment ap proximately one year and a half ago for unspecified anxiety and sleep disturbances. - Concerns about the effective use and d osages arose, and the patient expressed interest in reducing the dosage to 5mg from 10mg. and then when she ran out she stopped taking it Osteoporosis Treatment: - The patient was prescribed alendronate due to osteoporosis. - Reported severe musculoskeletal discom fort (bone pain affecting the entire body including fingernails) after administration, resulting in self- discontinuation of the treatment. Thyroid Management Concerns: - Thyroid medication was prescribed but the patient has yet to initiate the treatment. - An upcoming thyroid ultrasound is sche duled to assess the condition further. Social History: - Active recreational bowling, engaging in the sport five times per week. Family History: - Daughter with a history of thyroid nod ule, necessitating partial thyroidectomy. Diagnostic Results: - Upcoming thyroid ultrasound scheduled for January. Problem List - Issues with Mirtazpine. - Lexapro for Anxiety or Depression. - Osteoporosis. - Concern with thyroid management. Plan - restart Lexapro dosage by prescribing a 10mg tablet to be split in half to achieve 5mg, tailoring based on patient tolerance. - Reviewed and discussed the side effect s associated with osteoporosis treatment medications such as alendronate. The decision was made to hold off resuming this medication due to severe side effects. - star thyroid medication, - awaiting thyroid ultrasound Review of Systems - General: No fever no chills - Neurological: No headaches no dizziness - Ear nose throat: No sore throat no hearing difficulty no ear pain - Cardiovascular: No syncope, no chest pain, no palpitations - Gastrointestinal: No nausea vomiting or diarrhea - Endocrine: No polyuria polydipsia no heat intolerance - Genitourinary: No dysuria , no blood in urine Physical Exam General: No acute distress, but patient reports feeling on edge and irritated. HEENT: No acute findings Neck: Supple Respiratory system: Able to talk in full sentences, no audible wheeze Cardiovascular: S1-S2 regular in rate and rhythm Gastrointestinal: No pain Extremities: No new findings TRAVEL PHYSICAL THERAPIST: Alert awake oriented x3 motor intact Skin: Normal turgor PFSH Medical History Depression Anemia Surgical History H/O colonoscopy Gastric bypass status for obesity History of surgery S/P cholecystectomy Family History Sister Substance use disorder Brother NHL (non-Hodgkin's lymphoma) Brother CAD (coronary artery disease) Father CAD (coronary artery disease) Paternal Aunt Breast cancer Social History Housing: House Are you a primary direct care specialist to a significant other at home: No Do you presently have visiting nurse or other home services: No Patient Tobacco Use Status: Former Tobacco user e-Cigarette/Vaping Use: Never Used service: No Current occupational status: employed Cognitive needs: No Hearing needs: No Vision needs: Yes Questionnaire Thrive Questionnaire Date Thrive assessed: 06/11/24 I am a: Patient What is your living situation today?: I have a steady place to live Within the past 12 months, did the food you bought not last and you didn't have the money to get more?: Never true Within the past 12 months, did you worry whether your food would run out before you got money to buy more?: Never true Do you have trouble paying for medicines?: No Do you have trouble getting transportation to medical appointments?: No Do you have trouble paying your heating and electricity bill?: No Do you have trouble taking care of your child, family member or friend?: No Do you have trouble with day-to-day activities such as bathing, preparing meals, shopping, managing finances, etc.?: No Are you currently unemployed and looking for a job?: No Are you interested in more education?: No Please select the resources that you would like help with: None Currently or been in a relationship where the following occur: No concerns reported THRIVE Score: 0 Physical exam (Primary Care) Vital Signs: Last Vital Signs Pulse 74 01/01/25 15:22 Resp 16 01/01/25 15:22 BP 104/60 01/01/25 15:22 Pulse Ox 96 01/01/25 15:22 Oxygen Delivery Method Room Air 01/01/25 15:22 BMI result Body Mass Index 26.2 Tobacco/Smoking Status: Tobacco use Status Tobacco use date assessed 01/01/25 01/01/25 15:31 Patient Tobacco Use Status Former Tobacco user 01/01/25 15:24 e-Cigarette/Vaping Use Never Used 01/01/25 15:24 Thrive Assessment: Date of Thrive Assessment Date Thrive assessed 06/11/24 01/01/25 15:24 Currently or been in a relationship where the following occur: No concerns reported Coding Level of Care Code Est Pt Level 3 (07783) Diagnoses Recurrent major depressive disorder, in partial remission F33.41 Active/Remission status: in partial remission Anxiety, generalized F41.1 Other specified hypothyroidism E03.8 Age related osteoporosis, unspecified pathological fracture presence M81.0 Presence of current pathological fracture: unspecified Assessment & Plan Assessment & Plan (1) Major depression, recurrent: Code(s): F33.9 - Major depressive disorder, recurrent, unspecified Category: Medical Qualifiers: Active/Remission status: in partial remission Qualified Code(s): F33.41 - Major depressive disorder, recurrent, in partial remission (2) Anxiety, generalized: Code(s): F41.1 - Generalized anxiety disorder Category: Medical (3) Other specified hypothyroidism: Code(s): E03.8 - Other specified hypothyroidism Category: Medical (4) Age related osteoporosis: Code(s): M81.0 - Age-related osteoporosis without current pathological fracture Category: Medical Qualifiers: Presence of current pathological fracture: unspecified Qualified Code(s): M81.0 - Age-related osteoporosis without current pathological fracture Plan Issues with Mirtazepine: - The patient reports adverse effects after taking Med, which was prescribed to aid sleep due to sleep disturbances. - Experiences included severe disorientation lasting two days, which occurred while on vacation, leading her to discontinue the medication independently. Lexapro for Anxiety or Depression: - The patient began Lexapro treatment approximately one year and a half ago for unspecified anxiety and sleep disturbances. - Concerns about the effective use and dosages arose, and the patient expressed interest in reducing the dosage to 5mg from 10mg. and then when she ran out she stopped taking it Osteoporosis Treatment: - The patient was prescribed alendronate due to osteoporosis. - Reported severe musculoskeletal discomfort (bone pain affecting the entire body including fingernails) after administration, resulting in self- discontinuation of the treatment. Thyroid Management Concerns: - Thyroid medication was prescribed but the patient has yet to initiate the treatment. - An upcoming thyroid ultrasound is scheduled to assess the condition further. Social History: - Active recreational bowling, engaging in the sport five times per week. Family History: - Daughter with a history of thyroid nodule, necessitating partial thyroidectomy. Diagnostic Results: - Upcoming thyroid ultrasound scheduled for January. Problem List - Issues with Mirtazpine. - Lexapro for Anxiety or Depression. - Osteoporosis. - Concern with thyroid management. Plan - restart Lexapro dosage by prescribing a 10mg tablet to be split in half to achieve 5mg, tailoring based on patient tolerance. - Reviewed and discussed the side effects associated with osteoporosis treatment medications such as alendronate. The decision was made to hold off resuming this medication due to severe side effects. - star thyroid medication, - awaiting thyroid ultrasound Medications: Refilled escitalopram oxalate (Lexapro) 10 mg PO DAILY 90 tabs 1RF
--- OUTSIDE RECORDS SUMMARY | 2025-01-01 20:23 | XMS_ITS | Encounter Summary ---
Author Organization [facility] Address [address] [place] [address] Care Team Providers Care Rental Boats Caretaker Name Role Phone Tracey Spear NEW CAR SALESPERSON Primary Care Provider [phone] Tracey Spear NEW CAR SALESPERSON Unavailable Andra Ramirez MD Unavailable [phone] Encounter Details Date Type Department Care Team (Late st Contact Info) Description 09/03/2020 Telephone [facility] [address] [place] [address] Tracey Spear, NEW CAR SALESPERSON [address] [place], [place] [phone] Social History Tobacco Use Types Packs/Day Years [...] PM EDT documented as of this encounter Functional Status documented as of this encounter Miscellaneous Notes [...] on filedocumented in this encounter Care Teams Rental Boats Caretaker Relationship Specialty Start Date End Date Tracey Spear APRN PCP - General Family Medicine 09/30/17 06/10/22 Tracey Spear APRN [facility] [place] [address] PCP - [employer] Attributed 02/12/20 10/11/20 Andra Ramirez MD [address] [facility] [address] [place] [address] Referring Provider Gynecology 09/19/20 documented as of this encounter
--- OUTSIDE RECORDS SUMMARY | 2025-01-01 20:23 | XMS_ITS | Clinical Summary ---
Author Organization [facility] Address [address] [place] [address] Care Team Providers Care Lacing Operator Name Role Phone Andra Ramirez MD Unavailable [phone] Allergies Active Allergy Reactions Criticality Noted Date Comments Penicillins Rash/Dermatitis Low 11/18/2016 Medications ergocalciferol (ERGOCALCIFEROL ) 89816 units capsuleIndicati ons:Vitamin D deficiency Take 1 [...] 2 Active cholecalciferol (CHOLECALCIFERO L) 1.25 MG (85688 UT) capsuleIndicati ons:Vitamin D deficiency TAKE 1 [...] season) 2024 02/01/2021, 06/24/2020, 06/03/2020 RSV Vaccine 50 years and older and Patients (1 - [...] AM EDT) Cholesterol, Total 117 <200 mg/dL [facility] Cholesterol, HDL 42(L) > OR = 50 mg/dL [facility] Triglycerides 58 <150 mg/dL [facility] LDL Cholesterol 62 mg/dL (calc) [facility] Comment: Reference range: <100 Desirable range <100 mg/dL for primary prevention; <70 mg/dL for patients with CHD or diabetic patients with > or = 2 CHD risk factors. LDL-C is now calculated using the Bonnie calculation, which is a validated novel method providing better accuracy than the Friedewald equation in the estimation of LDL-C. Alejo FERNANDEZ et al. KANDY. 2013;310(19): 0170-8864 (http://education.[employer].Team My Mobile/faq/DCQ709) Cholesterol/HDL Ratio 2.8 <5.0 (calc) [facility] Non HDL Chol. (LDL+VLDL) 75 <130 mg/dL (calc) [facility] Comment: For patients with diabetes plus 1 major ASCVD risk factor, treating to a non-HDL-C goal of <100 mg/dL (LDL-C of <70 mg/dL) is considered a therapeutic option. Blood specimen (specimen) 06/26/2021 7:41 AM EDT 06/26/2021 7:41 AM EDT Narrative [employer] - 06/27/2021 1:38 AM EDT FASTING:YES FASTING: YES Tracey Spear APRN LAB BLOOD ORDERABLES [place] Result Performing Organization Address [facility] Co de Phone Number [facility] [address] [place] [address], [facility] [place] [address] * Hepatitis C Antibody (06/26/2021 7:39 AM EDT) Hepatitis C Antibody NON-REACT NEAL NON-REACT NEAL [facility] Hepatitis C Antibody (s/co) 0.14 <1.00 [facility] Comment: HCV antibody was non-reactive. There is no laboratory evidence of HCV infection. In most cases, no further action is required. However, if recent HCV exposure is suspected, a test for HCV RNA (test code 40119) is suggested. For additional information please refer to http://education.Kylin Network/faq/WUE98g0 (This link is being provided for informational/ educational purposes only.) Blood specimen (specimen) Blood specimen / Unknown 06/26/2021 7:39 AM EDT 06/26/2021 7:40 AM EDT Narrative [facility] - 06/27/2021 2:06 AM EDT FASTING:YES FASTING: YES Tracey Spear APRN LAB BLOOD ORDERABLES [place] Result Performing Organization Address [facility] Co de Phone Number [facility] [address] [place] [address], [place] [address] * PATHOLOGY GYNECOLOGY (09/21/2018) us External Provider MD [facility] HX PATH PROCEDURES [place] Result from Last 3 Months or Most Recently Relevant to Health Maintenance [place] [id number] [facility] Care Teams Lacing Operator Relationship Specialty Start Date End Date Andra Ramirez MD [address] [place] [address] Referring Provider Gynecology 09/19/20
--- OUTSIDE RECORDS SUMMARY | 2025-01-01 20:23 | XMS_ITS | Patient Health Record ---
Author Organization [facility] Address [address] [facility] [address] [place] [address] Care Team Providers Care Insulation Worker Interior Surface Name Role Phone SHADE MELENDEZ Primary Care Provider Andra Farooq Unavailable [phone] Allergies Allergen (clinical drug ingredient) Drug/Non Drug [...] Status Risk Notes Problem Postmenopausal atrophic vaginitis (31525413) Postmenopausal atrophic vaginitis (N95.2) Active confirmed Problem Age-related osteoporosis (358566212) Age-related osteoporosis without current pathological fracture (M81.0) Active confirmed Problem Morbid obesity (disorder) (014101399) Morbid (severe) obesity due to excess calories (E66.01) Active confirmed Problem Localized morphea (611396125) 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) Active confirmed Problem Atrophy of vulva (170557285) Atrophy of vulva (N90.5) Active confirmed Problem Vitamin D deficiency (15954545) Vitamin D deficiency, unspecified (E55.9) Active confirmed Problem Menopausal symptom (71195253) Symptomatic menopausal or female climacteric states (627.2) Active confirmed Major Problem Postmenopausal atrophic vaginitis (92917610) Postmenopausal atrophic vaginitis (627.3) Active confirmed Diag Problem Gynecological examination normal (957125496239051) Routine gynecological examination (V72.31) Active confirmed Problem Screening for malignant neoplasm of colon (193608057) Special screening for malignant neoplasms, colon (V76.51) Active confirmed Major Vital Signs Temperature 97.9 degrees Fahrenheit 11/30/2024 Blood pressure diastolic 62 mm Hg 11/30/2024 Height 61.25 in 11/30/2024 Blood pressure systolic 100 mm Hg 11/30/2024 Weight 141 lbs 11/30/2024 BMI 26.42 kg/m2 11/30/2024 Encounters Encounter Location Date Provider Diagnosis [place] [address] [facility] [employer] [address] [address] 02/23/2024 Andra Ramirez Encounter for gynecological examination (general) (routine) without abnormal findings Z01.419 ; Encounter for screening mammogram for malignant neoplasm of breast Z12.31 ; Lichen sclerosus et atrophicus L90.0 ; Atrophy of vulva N90.5 ; Postmenopausal atrophic vaginitis N95.2 and Other specified disorders of bone density and structure, multiple sites M85.89 [place] [address] [employer] [employer] [address] [address] 04/06/2024 Andra Ramirez Lichen sclerosus et atrophicus L90.0 [place] [address] [employer] [address] [address] 07/27/2024 Andra Ramirez Lichen sclerosus et atrophicus L90.0 ; Atrophy of vulva N90.5 and Other specified disorders of bone density and structure, multiple sites M85.[address] [address] 11/30/2024 Andra Ramirez Age-related osteoporosis without current pathological fracture M81.[address] [address] 10/22/2024 Andra Ramirez Age-related osteoporosis without current pathological fracture M81.[address] [address] 11/14/2024 Andra Ramirez [address] [address] 11/30/2024 Andra Ramirez Assessments Encounter Date Diagnosis [...] MAMMOGRAM, SCREENING 12/17/2022 MAMMOGRAM, SCREENING 02/23/2024 Urinalysis 02/23/2024 Urinalysis 12/07/2021 Urinalysis 08/25/2017 Urinalysis 09/19/2018 25OH VITAMIN D 11/24/2016 25OH VITAMIN D 10/05/2016 N-TELOPEPTIDE CROSS 10/05/2016 TSH 10/05/2016 BONE DENSITY 07/27/2024 BONE DENSITY 10/08/2019 BONE DENSITY 10/10/2020 BONE DENSITY 12/07/2021 MM Digital Mammo Screening 12/07/2021 MM Digital Mammo Screening 10/10/2020 MM Digital Mammo Screening 12/17/2022 MM Digital Mammo Screening 02/23/2024 TSH-[id number] 10/22/2024 CBC With Differential/Platelet-101890 PTH, Intact-510054 10/22/2024 Vitamin D, 49-Ngqptnu-632042 10/22/2024 Comp. Metabolic Panel [phone] Next Appt Details Provider Name:Andra elizabeth, 02/28/2025 03:00:00 PM, [address] [facility], [address], [place], [address], Insurance Providers Payer Name Payer Address Payer Phone Subscriber Number Group Number Insured Name Patient Relationship to Insured Coverage Start Date Coverage End Date [employer] [address] [place] [address] [id number] ADRIAN GOODMAN Self - patient is the [...]
--- OUTSIDE RECORDS SUMMARY | 2025-01-01 20:23 | XMS_ITS | Encounter Summary ---
Author Organization [facility] Address [address] [place] [address] Care Team Providers Care Gold Prospector Name Role Phone Tracey Spear INDUSTRIAL ECONOMICS PROFESSOR Primary Care Provider [phone] Andra Ramirez MD Unavailable [phone] Encounter Details Date Type Department Care Team (Late st Contact Info) Description 01/19/2021 Scanned Document [facility] [address] [place] [phone] Tracey Spear, INDUSTRIAL ECONOMICS PROFESSOR [address] [place] [phone] Social History Tobacco Use Types Packs/Day Years [...] on filedocumented in this encounter Care Teams Gold Prospector Relationship Specialty Start Date End Date Tracey Spear APRN PCP - General Family Medicine 09/30/17 06/10/22 Andra Ramirez MD [address] [place] [address] Referring Provider Gynecology 09/19/20 documented as of this encounter
--- OUTSIDE RECORDS SUMMARY | 2025-01-01 20:23 | XMS_ITS | Encounter Summary ---
Author Organization [facility] Address [address] [place] [address] Care Team Providers Care Photocopying Equipment Mechanic Name Role Phone Tracey Spear MEDICAL INSURANCE VERIFIER Primary Care Provider [phone] Andra Ramirez MD Unavailable [phone] Encounter Details Date Type Department Care Team (Late st Contact Info) Description 01/01/2021 Scanned Document [address] [phone] Tracey Spear, MEDICAL INSURANCE VERIFIER [address] [place] [address] Social History Tobacco Use Types Packs/Day Years [...] on filedocumented in this encounter Care Teams Photocopying Equipment Mechanic Relationship Specialty Start Date End Date Tracey Spear, MEDICAL INSURANCE VERIFIER PCP - General Family Medicine 09/30/17 06/10/22 Andra Ramirez MD [address] [place] [address] Referring Provider Gynecology 09/19/20 documented as of this encounter
--- OUTSIDE RECORDS SUMMARY | 2025-01-01 20:23 | XMS_ITS | Encounter Summary ---
Author Organization [facility] Address [address] [place] [address] Care Team Providers Care Spray Stainer Name Role Phone Tracey Spear DATA MANAGEMENT ASSOCIATE Primary Care Provider [phone] Tracey Spear DATA MANAGEMENT ASSOCIATE Unavailable Andra Ramirez MD Unavailable Reason for Visit * Reason Comments Medication Problem Encounter Details Date Type Department Care Team (Late st Contact Info) Description 09/22/2020 Telephone [facility] [address] [place] [address] Tracey Spear, DATA MANAGEMENT ASSOCIATE [address] [place], [place] [phone] Medication Problem Social History Tobacco Use Types [...] side effects. * Telephone Encounter - Bautista Willsi DO - 09/22/2020 2:04 PM EDT Nothing [...] to her pharmacy. Pharmacy info: [facility] in [place] contact info:[phone] documented in this encounter Plan of Treatment Not on file documented as of this encounter Visit Diagnoses Not on filedocumented in this encounter Care Teams Spray Stainer Relationship Specialty Start Date End Date Tracey Spear APRN PCP - General Family Medicine 09/30/17 06/10/22 Tracey Spear APRN [address] [place] [address] PCP - [employer] Commercial Attributed 02/12/20 10/11/20 Andra Ramirez MD [address] [place] [address] Referring Provider Gynecology 09/19/20 documented as of this encounter
--- OUTSIDE RECORDS SUMMARY | 2025-01-01 20:23 | XMS_ITS | Encounter Summary ---
Author Organization [facility] Address [address] [place] [address] Care Team Providers Care Coating Technician Name Role Phone Tracey Spear COMBAT SYSTEMS ENGINEER Primary Care Provider [phone] Andra Ramirez MD Unavailable [phone] Encounter Details Date Type Department Care Team (Late st Contact Info) Description 04/09/2021 Scanned Document [facility] [address] [place] [phone] Tracey Spear, COMBAT SYSTEMS ENGINEER [address] [place] [address] Social History Tobacco Use Types Packs/Day Years [...] on filedocumented in this encounter Care Teams Coating Technician Relationship Specialty Start Date End Date Tracey Spear APRN PCP - General Family Medicine 09/30/17 06/10/22 Andra Ramirez MD [address] [place] [address] Referring Provider Gynecology 09/19/20 documented as of this encounter
--- OUTSIDE RECORDS SUMMARY | 2025-01-01 20:23 | XMS_ITS | Clinical Summary ---
Author Organization [facility] Address [address] [place] [address] Care Team Providers Care Disaster Recovery Coordinator Name Role Phone Unavailable Primary Care Provider Unavailabl e Social History Tobacco Use Types Packs/Day Years Used Date Smoking Tobacco: Never Assessed Sex and Gender Information Value Date Recorded Sex Assigned at Not on file Gender Identity Not on file Sexual Orientation Not on file Plan of Treatment Not on file
--- OUTSIDE RECORDS SUMMARY | 2025-01-01 20:23 | XMS_ITS | Encounter Summary ---
Author Organization [facility] Address [address] [place] [address] Care Team Providers Care Recreational Leader Name Role Phone Tracey Spear BLOOD BANK LABORATORY PROFESSIONAL Primary Care Provider [phone] Tracey Spear APRN Unavailable [phone] Andra Ramirez MD Unavailable Encounter Details Date Type Department Care Team (Late st Contact Info) Description 10/08/2020 Documentation [facility] [address] [place] [phone] Estephanie Chaidez [place] [address] [place], [place] [address] Social History Tobacco Use Types Packs/Day Years [...] on filedocumented in this encounter Care Teams Recreational Leader Relationship Specialty Start Date End Date Tracey Spear APRN PCP - General Family Medicine 09/30/17 06/10/22 Tracey Spear APRN [facility] [place] [address] PCP - [employer] Attributed 02/12/20 10/11/20 Andra Ramirez MD [address] [facility] [address] [place] [address] Referring Provider Gynecology 09/19/20 documented as of this encounter
--- OUTSIDE RECORDS SUMMARY | 2025-01-01 20:23 | XMS_ITS | Encounter Summary ---
Author Organization [facility] Address [address] [place] [address] Care Team Providers Care Academic Affairs Specialist Name Role Phone Tracey Spear SPA DIRECTOR/FINANCE Primary Care Provider [phone] Tracey Spear SPA DIRECTOR/FINANCE Unavailable [phone] Andra Ramirez MD Unavailable [phone] Reason for Visit * Reason Comments Other Encounter Details Date Type Department Care Team (Late st Contact Info) Description 10/02/2020 Telephone [facility] [address] [place] [address] Tracey Spear, SPA DIRECTOR/FINANCE [address] [place], [place] [phone] Other Social History Tobacco Use Types Packs/Day [...] on filedocumented in this encounter Care Teams Academic Affairs Specialist Relationship Specialty Start Date End Date Tracey Spear APRN PCP - General Family Medicine 09/30/17 06/10/22 Tracey Spear APRN [address] [place] [address] PCP - [employer] Commercial Attributed 02/12/20 10/11/20 Andra Ramirez MD [address] [facility] [address] [place] [address] Referring Provider Gynecology 09/19/20 documented as of this encounter
--- OUTSIDE RECORDS SUMMARY | 2025-01-01 20:23 | XMS_ITS | Encounter Summary ---
Author Organization [facility] Address [address] [place] [address] Care Team Providers Care Chair Upholsterer Name Role Phone Tracey Spear RECONCILIATION ACCOUNTANT Primary Care Provider [phone] Tracey Spear RECONCILIATION ACCOUNTANT Unavailable Andra Ramirez MD Unavailable Reason for Visit * Reason Comments Medication Refill Encounter Details Date Type Department Care Team (Late st Contact Info) Description 03/04/2020 Refill [facility] [address] [place] [phone] Tracey Spear, RECONCILIATION ACCOUNTANT [address] [place] [address] Herpes labialis Social History Tobacco Use Types [...] complication documented in this encounter Care Teams Chair Upholsterer Relationship Specialty Start Date End Date Tracey Spear APRN PCP - General Family Medicine 09/30/17 06/10/22 Tracey Spear APRN [address] [place] [address] PCP - [employer] Attributed 02/12/20 10/11/20 Andra Ramirez MD [address] [facility] [address] [place] [address] Referring Provider Gynecology 09/19/20 documented as of this encounter
--- OUTSIDE RECORDS SUMMARY | 2025-01-01 20:23 | XMS_ITS | Encounter Summary ---
Author Organization [facility] Address [address] [place] [address] Care Team Providers Care Ocean Export Account Manager Name Role Phone Tracey Spear RESISTANCE MACHINE WELDER SETTER Primary Care Provider [phone] Andra Ramirez MD Unavailable [phone] Reason for Visit * Reason Comments Medication Refill Encounter Details Date Type Department Care Team (Late st Contact Info) Description 03/15/2021 Refill [facility] [address] [place] [phone] Tracey Spear, RESISTANCE MACHINE WELDER SETTER [address] [place], [place] [address] Morbid obesity with BMI of 40.0-44.9, adult [...] (HCC) documented in this encounter Care Teams Ocean Export Account Manager Relationship Specialty Start Date End Date Tracey Spear APRN PCP - General Family Medicine 09/30/17 06/10/22 Andra Ramirez MD [address] [facility] [address] [place] [address] Referring Provider Gynecology 09/19/20 documented as of this encounter
== END 2025-01-01 16:29 | disposition home or self-care (01) ==
LOC: HO.HMCC 15:11
PROVIDERS: PCP Internal Medicine; Visit Provider Internal Medicine
DX: F33.41 Major depressive disorder, recurrent, in partial remission (principal); F41.1 Generalized anxiety disorder; E03.8 Other specified hypothyroidism; M81.0 Age-related osteoporosis without current pathological fracture

== ENCOUNTER 2025-03-05 14:54 | Outpatient (REF) | payer OTHER, SELFPAY ==
--- OUTSIDE RECORDS SUMMARY | 2023-12-23 03:30 | XMS_ITS ---
Author Organization [facility] Address [address] [place] [address] Care Team Providers Care Welfare Manager Name Role Phone SHADE MELENDEZ Primary Care Provider Andra Farooq Unavailable [phone] REASON FOR VISIT Annual (YELLOW FORM DONE) Encounters Encounter Location Date Provider Diagnosis [facility] [address] [address] 12/23/2023 Andra Ramirez Plan Of Treatment Next Appt Details Provider Name:Andra elizabeth, 03/10/2026 08:40:00 AM, [address] [place] [address], [facility] [address], [place], [address], Progress Notes * ADRIAN GOODMANDOB: (64 yo F)Acc No.[id number]:12/23/2023 PROGRESS NOTES Patient: ADRIAN BRIONES Appointment Provider: Axel Ramirez M.D. :1960 A ge:63 Y S ex:Female Date:12/23/2023 Address:[address] [place] [address] Pcp:SHADE MELENDEZ Subjective: * Chief Complaints: * 1 . Annual (YELLOW FORM DONE). * Medical History: Objective: * Vitals: Assessment: Plan: * Treatment: * Images: Billing Information: * Visit Code: * Procedure Codes: * Electronic signature of Ann Marie Ramirez MD on 03/05/2025 at 04:11 PM EST Sign off status: Pending * Appointment Provider: Axel Ramirez M.D. Date: 1 Generated for Mundo mart/Brent/John on: 05/06/2024 04:11 PM EST
--- OUTSIDE RECORDS SUMMARY | 2025-02-28 10:00 | XMS_ITS ---
Author Organization [facility] Address [address] [facility] [address] [place] [address] Care Team Providers Care Child Care Worker Name Role Phone SHADE MELENDEZ Primary Care Provider Andra Farooq Unavailable [phone] Allergies Allergen (clinical drug ingredient) Drug/Non Drug Allergy documented on EMR Reaction Allergy Type Onset Date Status Penicillin Unknown Drug Allergy Active Results Component Value Reference Range Notes Urinalysis Reviewed date:02/28/2025 05:21:23 PM Interpretation: Performing Lab: Notes/Report: PH 5.0 PROTEIN NEG GLUCOSE NEG BLOOD NEG [id number] IGP No Culture 30 Plus Reviewed date:03/04/2025 06:36:23 PM Interpretation: Performing Lab:[facility], [address], [address], [place], Phone - [phone], Director - [facility] Notes/Report: Clinical Information:CERV [id number] Dates / Results....12/07/2021 NIL NEG HPV No. of containers..01 ThinPrep Vial DIAGNOSIS: NEGATIVE FOR INTRAEPITHELIAL LESION OR MALIGNANCY. CELLULAR CHANGES ASSOCIATED WITH ATROPHY ARE PRESENT. Specimen adequacy: Satisfactory for evaluation. Endocervical component may not be distinguished in cases of atrophy. Clinician provided ICD10: Z01.419 Z11.51 Performed by: Kirk Laws , Braille Transcriber (ASCP) . . Note: The Pap smear is a screening test designed to aid in the detection of premalignant and malignant conditions of the uterine cervix. It is not a diagnostic procedure and should not be used as the sole means of detecting cervical cancer. Both false-positive and false-negative reports do occur. . Test Methodology: This liquid based ThinPrep(R) pap test was screened with the use of an image guided system. HPV Aptima Negative Negative This nucleic acid amplification test detects fourteen high-risk HPV types (16,18,31,33,35,39,45,51,52,56,5 8,59,66,68) without differentiation. HPV Genotype Reflex Criteria not met, HPV Genotype not performed. PDF Report Reviewed date:03/04/2025 06:28:43 PM Interpretation: Performing Lab:[facility], [address], [address], [place], Phone - [phone], Director - [facility] Notes/Report: Clinical Information:CERV [id number] Dates / Results....12/07/2021 NIL NEG HPV No. 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 Physical 60-85+ Medications Medication SIG (Take, Route, Frequency, Duration) Notes Start Date End Date Status Zepbound 5 MG/0.5ML 0.5 mL Subcutaneous Once a week Active Probiotic - as directed Orally Active Clobetasol Propionate 0.05 % 1 application to affected area Externally once a night x 1month then thrice a week; Duration: 90 days 02/23/2024 Active valACYclovir HCl 1 GM 1 tablet Orally On ce a day; Duration: 1 days Active Cyanocobalamin 1000 MCG/ML Injection; Duration: 90 Active Levothyroxine Sodium Active Estradiol Vaginal Cream 0.01% 1 Gram to the affected area Vaginal/Vulva Twice a week; Duration: 90 Days 07/27/2024 Active Social History Tobacco Use: Social History [...] ter than 10 years Vital Signs Temperature 98.2 degrees Fahrenheit 02/29/20 25 Blood pressure systolic 96 mm Hg 02/29/20 25 Blood pressure diastolic 62 mm Hg 025 Height 61.25 in 02/28/2025 Weight 134 lbs 02/28/2025 BMI 25.11 kg/m2 02/28/2025 Encounters Encounter Location Date Provider Diagnosis [facility] [address] [facility] [address] [place] [address] 02/28/2025 Andra Ramirez Encounter for screening for human papillomavirus (HPV) Z11.51 ; Encounter for screening mammogram for malignant neoplasm of breast Z12.31 ; Age-related osteoporosis without current pathological fracture M81.0 ; Lichen sclerosus et atrophicus L90.0 and Encounter for gynecological examination (general) (routine) without abnormal findings Z01.419 Assessments Encounter Date Diagnosis (ICD Code) Assessment Notes Treatment Notes Treatment Clinical Notes Section Notes 02/28/2025 Encounter for screening for human papillomavirus (HPV) (ICD-10 - Z11.51) HPV TYPING WAS ORDERED WITH PAP TEST. 02/28/2025 Encounter for screening mammogram for malignant neoplasm of breast (ICD-10 - Z12.31) REGULAR MAMMOGRAMS AND SBE'S WERE RECOMMENDED. 02/28/2025 Age-related osteoporosis without current pathological fracture (ICD-10 - M81.0) DISCUSSED OSTEOPOROSIS AND ITS IMPACT ON HER HEALTH. ADEQUATE CALCIUM AND VIT D. WEIGHT BEARING EXERCISES. OSTEO PRECAUTIONS. ADVISED HER TO SEE AN PEDIATRIC PSYCHOLOGIST FOR HELP REGARDING HER OSTEOPOROSIS. REQUEST HER PCP TO REFER HER. SHE HAS ALREADY FRACTURED AND SHE NEEDS HELP. 02/28/2025 Lichen sclerosus et atrophicus (ICD-10 - L90.0) DISCUSSD FINDINGS AND CONGRATULATED PAT FOR HER DILIGENCE. CONTINUE APPLYING THE MEDICATION 1 TO 2 X PER WEEK. 02/28/2025 Encounter for gynecological examination (general) (routine) without abnormal findings (ICD-10 - Z01.419) PAP TEST WAS OBTAINED. Plan Of Treatment Treatment Notes Assessment Notes Encounter for screening for human papillomavirus (HPV) HPV TYPING WAS ORDERED WITH PAP TEST. Encounter for screening mamm ogram for malignant neoplasm of breast REGULAR MAMMOGRAMS AND SBE'S WERE RECOMMENDED. Age-related osteoporosis wit hout current pathological fracture DISCUSSED OSTEOPOROSIS AND ITS IMPACT ON HER HEALTH. ADEQUATE CALCIUM AND VIT D. WEIGHT BEARING EXERCISES. OSTEO PRECAUTIONS. ADVISED HER TO SEE AN PEDIATRIC PSYCHOLOGIST FOR HELP REGARDING HER OSTEOPOROSIS. REQUEST HER PCP TO REFER HER. SHE HAS ALREADY FRACTURED AND SHE NEEDS HELP. Lichen sclerosus et atrophicus DISCUSSD FINDINGS AND CONGRATULATED PAT FOR HER DILIGENCE. CONTINUE APPLYING THE MEDICATION 1 TO 2 X PER WEEK. Encounter for gynecological examination (general) (routine) without abnormal findings PAP TEST WAS OBTAINED. Pending Test Test Name Order Date MAMMOGRAM, SCREENING 02/28/2025 MM Digital Mammo Screening 02/28/2025 Next Appt Details Follow Up: 1 Year, Reason: Provider Name:Andra Whalen chikisdaxa, 03/10/2026 08:40:00 AM, [address] [facility], [address], [place], [address], Progress Notes * ADRIAN GOODMANDOB: 1 (64 yo F)Acc No.[id number]:02/28/2025 PROGRESS NOTES Patient: ADRIAN BRIONES Appointment Provider: Axel Ramirez M.D. :1960 A ge:64 Y S ex:Female Date:02/28/2025 Address:[address] [place] [address] Pcp:SHADE MELENDEZ Subjective: * Chief Complaints: * Annual METAL RIVET MACHINE OPERATOR PhysicalAnnual METAL RIVET MACHINE OPERATOR Physical 60-85+ * HPI: N ew/Follow-up Patient Consult: PAT ENTERED MENOPAUSE IN 2009. SHE IS A AND HAS HAD A NEW RELATIONSHIP FOR A YEAR. SHE DENIES DYSPAREUNIA. SHE HAD GASTRIC BYPASS DONE IN 2001 AND LOST A SIGNIFICANT AMOUNT OF WEIGHT. VULVAR BIOPSY DONE IN CONFIRMED THE DX OF LICHEN SCLEROSUS. 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 SHE IS KNOWN TO BE OSTEOPOROTIC. SHE FELL AND FRACTURED HER RIBS IN 2024. HER BMD IN 2024 SHOWED THE LOWEST T-SCORE TO BE -2.9 AT THE FEMORAL NECK. THIS WAS -2.2 IN 2021. OSTEO WORK UP SHOWED LOW VIT D AND ELEVATED TSH. SHE WAS GIVEN FOSAMAX BY HER PCP BUT SHE COULD NOT TOLERATE THIS. HER LAST MAMMOGRAM DONE IN MAR 2024 SHOWED BREASTS ARE NOT DENSE AND WAS NORMAL. HER LAST PAP TEST IN 2021 WAS NEGATIVE AND HPV NEGATIVE. SHE HAD COLOGUARD TESTING IN 2020 AND A COLONOSCOPY IN 2024. A nnual: Patient presents for annual exam, ages 60-85, postmenopausal. General Health Maintenance: C urrent breast complaints: n o breast pain, mass, discharge, or skin changes U rinary problems: p atient reports no urinary health problems or bowel health problems C alcium intake: t akes adequate calcium via diet and supplementation S ignificant METAL RIVET MACHINE OPERATOR problems: n o significant broadcast systems engineer symptoms or problems * ROS: g eneral: no c hest pain. n o p alpitations. n o h eadache. n o c ough. n o s hortness of breath. n o f ever. n o u nexplained weight loss. n o n ausea/vomiting. n o c hange in bowel movements. n o blood in stool. n o g enitourinary complaints. n o s kin complaints. ? * Medical History: * Philosophy Faculty History: G ravida/ Para 3 /3. S exual activity c urrently sexually active. L ast Pap Smear: NIL, NEG HPV, 09/19/18 NIL, NEG HRHPV, 07/2015 , neg, NEG HRHPV. M ammogram: < 50% density, 02/11/23 < 50% density, 01/06/22 < 50% density, 11/26/20 Breast Tissue is Almost Entirely Fatty, 11/26/19 Breast Tissue is Almost Entirely Fatty, 10/05/18 < 50% density, 09/06/17 Breast Tissue is Almost Entirely Fatty, 09/02/2016 normal, 07/29/2015 05/16/14 < 25% glandular, 04/09/13. L MP and menses M bi 10/2009. B irth Control: b ilateral tubal ligation. M enopause: B sarah [age] age: [age] C olonoscopy Q 5 Years, Cologuard 2020, 2010, 2005. B one Density: , 01/06/22, 11/26/19, 09/02/2016. * OB History: T otal pregnancies 3 . T otal living children 3 . C -section(s) 3 . * Surgical History: B ilateral Tubal Ligation Section x 3 Cholecystectomy Gastric Bypass Colonoscopy 2005Vulvar Biopsy - Lichen Sclerosus 2016 * Hospitalization/Major Diagno stic Procedure: S ee Surgical Hx * Family History: M other: . F ather: 82 yrs, coronary artery disease. P aternal aunt: breast cancer, diagnosed with Other malignant neoplasm of unspecified site. 10/2016. * Social History: T obacco Use: T obacco Control (Standard) T obacco use: F ormer smoker H ow long has it been since you last smoked??Greater than 10 years S exual History: S exual History H ad sex in the past 12 months (vaginal, oral, or anal)?: Yes, with: Men only. Details of Sexual History A re you sexually active? Y es D rugs/Alcohol: D rugs H ave you used drugs other than those for medical reasons in the past 12 months? N o M iscellaneous: C hildren: yes, 3. Domestic violence: no. Exercise: yes, Weight Lifting, Cardio. Home smoke detector use: yes. Legal problems: no. Marital status: , . Natural support system: yes. Occupation: Works full-time. Others at home: yes. Sexual abuse: no. Sexually active: yes, monogamous relationship. Verbal abuse: no. D rug/Alcohol: A MERCEDEZ-C (Standard) D id you have a drink containing alcohol in the past year? N o P oints 0 I nterpretation N egative * Medications: T akingLevothyroxine Sodium Zepbound 5 MG/0.5ML Solution Auto-injector 0.5 mL [...] Cream 1 Gram to the affected area Vaginal/Vulva Twice a week Medication List reviewed and reconciled with the patientTaking Levothyroxine Sodium Taking Zepbound 5 MG/0.5ML Solution Auto-injector 0.5 [...] Cream 1 Gram to the affected area Vaginal/Vulva Twice a week Medication List reviewed and reconciled with the patient * Allergies: P enicillin: Allergyno[Allergies Verified] Objective: * Vitals: H t: 61.25 in, Wt:134lbs, BMI:25.11Index, BP:96/62mm Hg, Temp:98.2F. * Examination: G eneral Exam: CONSTITUTIONAL: G eneral Appearance: a lert, in no acute distress, normal, well nourished NECK/THYROID: I nspection/Palpation: n ormal T hyroid: n ormal size and shape RESPIRATORY: A uscultation: clear to auscultation bilaterally, Respiratory Effort: normal. CARDIOVASCULAR: A uscultation: regular rate and rhythm.? BREAST, Right: I nspection/Palpation: n o discharge, no masses present, no nipple retraction, no skin changes, no skin dimpling, no tenderness, no lymphadenopathy, no axillary mass, no axillary tenderness BREAST, Left: I nspection/Palpation: n o discharge, no masses present, no nipple retraction, no skin changes, no skin dimpling, no tenderness, no lymphadenopathy, no axillary mass, no axillary tenderness GASTROINTESTINAL: A bdomen: n o masses, nontender, nondistended L iver and Spleen: n ormal H ernias: n o hernias present, no inguinal adenopathy MUSCULOSKELETAL: I nspection/Palpation: n o clubbing, cyanosis, or edema SKIN: S kin: n ormal NEURO/PSYCH: O rientation: t selin , place, person M ood/Affect: n ormal G enitourinary: EXTERNAL GENITALIA: E xternal Genitalia: W PATRICIA LESIONS HAVE ALMOST COMPLETELY RESOLVED. VAGINA: V agina: n ormal appearance, no abnormal discharge, no lesions BLADDER: B ladder: n o mass, nontender URETHRA: U rethra: n o erythema or lesions present CERVIX: C ervix: n o lesions, nontender UTERUS: U terus: n ontender, normal contour, normal mobility, normal size ADNEXA: A dnexa: n o masses, no tenderness ANUS AND PERINEUM: A nus/Perineum: v isually normal Assessment: * Assessment: 1. E ncounter for screening for human papillomavirus (HPV) - Z11.51 2 . E ncounter for screening mammogram for malignant neoplasm of breast - Z12.31 3 . A ge-related osteoporosis without current pathological fracture - M81.0 4 . L ichen sclerosus et atrophicus - L90.0 5 . E ncounter for gynecological examination (general) (routine) without abnormal findings - Z01.419 (Primary) Plan: * Treatment: 2. E ncounter for screening for human papillomavirus (HPV) L AB: [id number] IGP No Culture 30 Plus Notes: HPV TYPING WAS ORDERED WITH PAP TEST.??3.?Encounter for screening mammogram for malignant neoplasm of breast?Imaging: MM Digital Mammo Screening Notes: REGULAR MAMMOGRAMS AND SBE'S WERE RECOMMENDED.??4.?Age-related osteoporosis without current pathological fracture? Notes: DISCUSSED OSTEOPOROSIS AND ITS IMPACT ON HER HEALTH. ADEQUATE CALCIUM AND VIT D. WEIGHT BEARING EXERCISES. OSTEO PRECAUTIONS. ADVISED HER TO SEE AN PEDIATRIC PSYCHOLOGIST FOR HELP REGARDING HER OSTEOPOROSIS. REQUEST HER PCP TO REFERHER. SHE HAS ALREADY FRACTURED AND SHE NEEDS HELP.?? 5.?Lichen sclerosus et atrophicus? Notes: DISCUSSD FINDINGS AND CONGRATULATED PAT FOR HER DILIGENCE. CONTINUE APPLYING THE MEDICATION 1 TO 2 X PER WEEK.?? * Imaging: * I maging: MAMMOGRAM, SCREENING * Labs: * L ab: Urinalysis (Collection Date & Time - 02/28/2025) Value Reference Range P H 5.0 * P ROTEIN NEG * G LUCOSE NEG * B LOOD NEG * Procedure Codes: 9 9459 PELVIC EXAMINATION * Preventive Medicine: YOUR PREVENTIVE WELLNESS PLAN: O steoporosis prevention C alcium, D, strength training. B reast Cancer Screening (Mammogram): a nnually. C ervical Cancer Screening (Pap Smear): q 3 years with HPV screen. C olorectal Cancer Screening: q 10 years. * Follow Up: 1 Year * Images: Billing Information: * Visit Code: 10492 Preventive Care Est Pt. Age 40-64. * Procedure Codes: 41569 PELVIC EXAMINATION. * Sign off status: Completed true * Appointment Provider: Axel Ramirez M.D. Date: 05/01/2024 Generated for Mundo mart/Brent/Clareitting on: 05/06/2024 04:11 PM EST History and Physical Notes * HPI (History of Present Illness) Category Sub-Category Detail Notes Category Not es New/Follow-up Patient Consult PAT ENTERED MENOPAUSE IN 2009. SHE IS A AND HAS HAD A NEW RELATIONSHIP FOR A YEAR. SHE DENIES DYSPAREUNIA. SHE HAD GASTRIC BYPASS DONE IN 2001 AND LOST A SIGNIFICANT AMOUNT OF WEIGHT. VULVAR BIOPSY DONE IN CONFIRMED THE DX OF LICHEN SCLEROSUS. 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 SHE IS KNOWN TO BE OSTEOPOROTIC. SHE FELL AND FRACTURED HER RIBS IN 2024. HER BMD IN 2024 SHOWED THE LOWEST T-SCORE TO BE -2.9 AT THE FEMORAL NECK. THIS WAS -2.2 IN 2021. OSTEO WORK UP SHOWED LOW VIT D AND ELEVATED TSH. SHE WAS GIVEN FOSAMAX BY HER PCP BUT SHE COULD NOT TOLERATE THIS. HER LAST MAMMOGRAM DONE IN MAR 2024 SHOWED BREASTS ARE NOT DENSE AND WAS NORMAL. HER LAST PAP TEST IN 2021 WAS NEGATIVE AND HPV NEGATIVE. SHE HAD COLOGUARD TESTING IN 2020 AND A COLONOSCOPY IN 2024. Annual General Health Maintenance: Current breast complaints:: no breast pain, mass, discharge, or skin changes Urinary problems:: patient r eports no urinary health problems or bowel health problems Calcium intake:: takes adequ ate calcium via diet and supplementation Significant METAL RIVET MACHINE OPERATOR problems:: n o significant broadcast systems engineer symptoms or problems Examination Category Sub-Category Detail [...] tenderness Genitourinary EXTERNAL GENITALIA: External Genitalia:: WHITE LESIONS HAVE ALMOST COMPLETELY RESOLVED. VAGINA: Vagina:: normal appearance, no a bnormal discharge, no lesions BLADDER: Bladder:: no mass, nontender URETHRA: Urethra:: no erythema or lesions present CERVIX: Cervix:: no lesions, nontender UTERUS: Uterus:: nontender, normal conto ur, normal mobility, normal size ADNEXA: Adnexa:: no masses, no tendernes s ANUS AND PERINEUM: Anus/Perineum:: visually norm al
--- NOTE | ~2025-03-05 | US_ITS ---
EXAMINATION: US THYROID HISTORY: E03.8 - Other specified hypothyroidism TECHNIQUE: Real-time grayscale ultrasound imaging was performed and images were reviewed. COMPARISON: There are no prior studies available for comparison. FINDINGS: SIZE: The right thyroid lobe measures 3.4 x 1.3 x 1.4 cm. The left thyroid lobe measures 3.4 x 1.2 x 1.3 cm. The isthmus measures 1 mm. FLOW: Flow to the gland is increased. ECHOGENICITY: The echotexture of the gland is homogeneous. NODULES: No nodules are identified. US/US thyroid IMPRESSION: Hypervascular thyroid gland without evidence of discrete nodules. ACR TI-RADS Guidelines TR1 (0 points): Benign. No follow-up or biopsy required TR2 (2 points): Not Suspicious. No biopsy or follow up indicated TR3 (3 points): Mildly Suspicious. FNA if >= 2.5 cm, Follow if >= 1.5 cm TR4 (4-6 points): Moderately Suspicious. FNA if >= 1.5 cm, Follow if >= 1.0 cm TR5 (>=7 points): Highly Suspicious. FNA if >= 1.0 cm, Follow if >= 0.5 cm Electronically signed by: Eliceo Lamb MD 03/06/2025 06:57 AM [facility]
--- OUTSIDE RECORDS SUMMARY | 2025-03-05 16:12 | XMS_ITS | Clinical Summary ---
Author Organization [facility] Address [address] [place] [address] Care Team Providers Care Facility Manager Histology Name Role Phone Andra Ramirez MD Unavailable [phone] Allergies Active Allergy Reactions Criticality Noted Date Comments Penicillins Rash/Dermatitis Low 11/18/2016 Medications ergocalciferol (ERGOCALCIFEROL ) 18342 units capsuleIndicati ons:Vitamin D deficiency Take 1 [...] 2 Active cholecalciferol (CHOLECALCIFERO L) 1.25 MG (70566 UT) capsuleIndicati ons:Vitamin D deficiency TAKE 1 [...] Sister BRIDGETTE Relation Name Status Comments Brother KNU Father Mother Sister BRIDGETTE Alive Social History [...] C screening test for low risk patient COLOGUARD CANCER SCREEN ([employer]) Routine 04/09/2021 PATHOLOGY GYNECOLOGY Routine 09/21/2018 from Last 3 Months or Most Recently Relevant to Health Maintenance Results * (ABNORMAL) Lipid Panel Reflex Direct LDL (06/26/2021 7:41 AM EDT) Cholesterol, Total 117 <200 mg/dL ED01 Cholesterol, HDL 42(L) > OR = 50 mg/dL ED01 Triglycerides 58 <150 mg/dL ED01 LDL Cholesterol 62 mg/dL (calc) ED01 Comment: Reference range: <100 Desirable range <100 mg/dL for primary prevention; <70 mg/dL for patients with CHD or diabetic patients with > or = 2 CHD risk factors. LDL-C is now calculated using the Bonnie calculation, which is a validated novel method providing better accuracy than the Friedewald equation in the estimation of LDL-C. Alejo FERNANDEZ et al. KANDY. 2013;310(19): 9814-0550 (http://education.QuestDiagnostics.com/faq/MZF299) Cholesterol/HDL Ratio 2.8 <5.0 (calc) ED01 Non HDL Chol. (LDL+VLDL) 75 <130 mg/dL (calc) ED01 Comment: For patients with diabetes plus 1 major ASCVD risk factor, treating to a non-HDL-C goal of <100 mg/dL (LDL-C of <70 mg/dL) is considered a therapeutic option. Blood specimen (specimen) 06/26/2021 7:41 AM EDT 06/26/2021 7:41 AM EDT Narrative [facility] - 06/27/2021 1:38 AM EDT FASTING:YES FASTING: YES us Tracey Spear APRN LAB BLOOD ORDERABLES [place] Result Performing Organization Address City/[facility]/ZIP Co de Phone Number I and love and you [address] [place] [address], [place] [address] * Hepatitis C Antibody (06/26/2021 7:39 AM EDT) Hepatitis C Antibody NON-REACT NEAL NON-REACT NEAL ED01 Hepatitis C Antibody (s/co) 0.14 <1.00 ED01 Comment: HCV antibody was non-reactive. There is no laboratory evidence of HCV infection. In most cases, no further action is required. However, if recent HCV exposure is suspected, a test for HCV RNA (test code 26207) is suggested. For additional information please refer to http://education.shopp/faq/UGY82j9 (This link is being provided for informational/ educational purposes only.) Blood specimen (specimen) Blood specimen / Unknown 06/26/2021 7:39 AM EDT 06/26/2021 7:40 AM EDT Narrative [facility] - 06/27/2021 2:06 AM EDT FASTING:YES FASTING: YES us Tracey Spear APRN LAB BLOOD ORDERABLES [place] Result [facility] [address] [place] [address], [place] [address] * Cologuard ([facility]) (04/09/2021) us Tracey Cortes Beatris DEPUTY JAILER BODY FLUIDS AND STOOLS OR DERABLES Final Result * PATHOLOGY GYNECOLOGY (09/21/2018) us External Provider [facility] HX PATH PROCEDURES [place] Result from Last 3 Months or Most Recently Relevant to Health Maintenance Insurance [facility] [place] [id number] [employer] HMO Care Teams Facility Manager Histology Relationship Specialty Start Date End Date Andra Ramirez MD [address] [place] [address] Referring Provider Gynecology 09/19/20
--- OUTSIDE RECORDS SUMMARY | 2025-03-05 16:12 | XMS_ITS | Encounter Summary ---
Author Organization [facility] Address [address] [place] [address] Care Team Providers Care Relief Manager Name Role Phone Tracey Spear AIRPLANE DISPATCHER Primary Care Provider [phone] Tracey Spear APRN Unavailable [phone] Andra aRmirez MD Unavailable [phone] Encounter Details Date Type Department Care Team (Late st Contact Info) Description 10/08/2020 Documentation [facility] [address] [place] [phone] Estephanie Chaidez [place] [address] [place], [place] [phone] Social History Tobacco Use Types Packs/Day Years [...] on filedocumented in this encounter Care Teams Relief Manager Relationship Specialty Start Date End Date Tracey Spear APRN PCP - General Family Medicine 09/30/17 06/10/22 Tracey Spear APRN [facility] [place] [address] PCP - [employer] Attributed 02/12/20 10/11/20 Andra Ramirez MD [address] [facility] [address] [place] [address] Referring Provider Gynecology 09/19/20 documented as of this encounter
--- OUTSIDE RECORDS SUMMARY | 2025-03-05 16:12 | XMS_ITS | Encounter Summary ---
Author Organization [facility] Address [address] [place] [address] Care Team Providers Care Alligator Trapper Name Role Phone Tracey Spear PRODUCT MARKETING SPECIALIST Primary Care Provider [phone] Andra Ramirez MD Unavailable [phone] Encounter Details Date Type Department Care Team (Late st Contact Info) Description 01/01/2021 Scanned Document [address] [phone] Tracey Spear, PRODUCT MARKETING SPECIALIST [address] [place] [address] Social History Tobacco Use Types Packs/Day Years [...] on filedocumented in this encounter Care Teams Alligator Trapper Relationship Specialty Start Date End Date Tracey Spear, PRODUCT MARKETING SPECIALIST PCP - General Family Medicine 09/30/17 06/10/22 Andra Ramirez MD [address] [place] [address] Referring Provider Gynecology 09/19/20 documented as of this encounter
--- OUTSIDE RECORDS SUMMARY | 2025-03-05 16:12 | XMS_ITS | Patient Health Record ---
Author Organization [facility] Address [address] [facility] [address] [place] [address] Care Team Providers Care Dental Surgeon Name Role Phone SHADE MELENDEZ Primary Care Provider Andra Farooq [phone] Allergies Allergen (clinical drug ingredient) Drug/Non Drug Allergy documented on EMR Reaction Allergy Type Onset Date Status Penicillin Unknown Drug Allergy Active Results Component Value Reference Range Notes PDF Report Reviewed date:03/04/2025 06:28:43 PM Interpretation: Performing Lab:[facility], [email or web address], [address], [place], Phone - [phone], [facility] Notes/Report: Clinical Information:CERV [id number] Dates / Results....12/07/2021 NIL NEG HPV No. of containers..01 ThinPrep Vial [id number] IGP No Culture 30 Plus Reviewed date:03/04/2025 06:36:23 PM Interpretation: Performing Lab:[facility], [address], [address], [place], Phone - [phone], Director [facility] Notes/Report: Clinical Information:CERV [id number] Dates / Results....12/07/2021 NIL NEG HPV No. of containers..01 ThinPrep Vial DIAGNOSIS: NEGATIVE FOR INTRAEPITHELIAL LESION OR MALIGNANCY. CELLULAR CHANGES ASSOCIATED WITH ATROPHY ARE PRESENT. Specimen adequacy: Satisfactory for evaluation. Endocervical component may not be distinguished in cases of atrophy. Clinician provided ICD10: Z01.419 Z11.51 Performed by: Kirk Laws , Digital Media Strategist ([facility]) . . Note: The Pap smear is [...] Criteria not met, HPV Genotype not performed. Urinalysis Reviewed date:02/28/2025 05:21:23 PM Interpretation: Performing Lab: Notes/Report: PH 5.0 PROTEIN NEG GLUCOSE NEG BLOOD NEG Reason For Referral No Information Medications Medication SIG (Take, Route, Frequency, Duration) Notes Start Date End Date Status Zepbound 5 MG/0.5ML 0.5 mL Subcutaneous Once a week Active Probiotic - as directed Orally Active Levothyroxine Sodium Active Clobetasol Propionate 0.05 % 1 application to affected area Externally once a night x 1month then thrice a week; Duration: 90 days 02/23/2024 Active Estradiol Vaginal Cream 0.01% 1 Gram to the affected area Vaginal/Vulva Twice a week; Duration: 90 Days 07/27/2024 Active valACYclovir HCl 1 GM 1 tablet [...] Status Risk Notes Problem Postmenopausal atrophic vaginitis (13546319) Postmenopausal atrophic vaginitis (N95.2) Active confirmed Problem Age-related osteoporosis (710868309) Age-related osteoporosis without current pathological fracture (M81.0) Active confirmed Problem Morbid obesity (disorder) (521417703) Morbid (severe) obesity due to excess calories (E66.01) Active confirmed Problem Localized morphea (791564366) 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) Active confirmed Problem Atrophy of vulva (559244563) Atrophy of vulva (N90.5) Active confirmed Problem Vitamin D deficiency (79212724) Vitamin D deficiency, unspecified (E55.9) Active confirmed Problem Menopausal symptom (76318430) Symptomatic menopausal or female climacteric states (627.2) Active confirmed Major Problem Postmenopausal atrophic vaginitis (73697518) Postmenopausal atrophic vaginitis (627.3) Active confirmed Diag Problem Gynecological examination normal (432823776163136) Routine gynecological examination (V72.31) Active confirmed Problem Screening for malignant neoplasm of colon (414365830) Special screening for malignant neoplasms, colon (V76.51) Active confirmed Major Vital Signs Temperature 98.2 degrees Fahrenheit 02/28/2025 Blood pressure diastolic 62 mm Hg 02/28/2025 Height 61.25 in 02/28/2025 Blood pressure systolic 96 mm Hg 02/28/2025 Weight 134 lbs 02/28/2025 BMI 25.11 kg/m2 02/28/2025 Encounters Encounter Location Date Provider Diagnosis [facility] [address] [phone] 04/06/2024 Andra Ramirez Lichen sclerosus et atrophicus L90.[address] [address] 07/27/2024 Andra Ramirez Lichen sclerosus et atrophicus L90.0 ; Atrophy of vulva N90.5 and Other specified disorders of bone density and structure, multiple sites M85.[address] [address] 11/30/2024 Andra Ramirez Age-related osteoporosis without current pathological fracture M81.[address] [address] 02/28/2025 Andra Ramirez Encounter for screening for human papillomavirus (HPV) Z11.51 ; Encounter for screening mammogram for malignant neoplasm of breast Z12.31 ; Age-related osteoporosis without current pathological fracture M81.0 ; Lichen sclerosus et atrophicus L90.0 and Encounter for gynecological examination (general) (routine) without abnormal findings Z01.[address] [address] 10/22/2024 Andramandy Ramirez Age-related osteoporosis without current pathological fracture M81.[address] [address] 11/14/2024 Andra Ramirez [facility] [address] [address] 11/30/2024 Andra Russellva Assessments Encounter Date Diagnosis (ICD Code) Assessment [...] RECORDS TO PCP AND DISCUSS TX OPTIONS. 02/28/2025 Encounter for screening for human papillomavirus (HPV) (ICD-10 - Z11.51) HPV TYPING WAS ORDERED WITH PAP TEST. 02/28/2025 Encounter for screening mammogram for malignant neoplasm of breast (ICD-10 - Z12.31) REGULAR MAMMOGRAMS AND SBE'S WERE RECOMMENDED. 07/27/2024 Atrophy of vulva (ICD-10 - N90.5) DISCUSSED VULVAR ATROPHY AND ITS NEGATIVE EFFECTS. APPLY ESTRADIOL CREAM ALONG VULVA TWICE WEEKLY. DETAILED INSTRUCTIONS WERE GIVEN. 02/28/2025 Age-related osteoporosis without current pathological fracture (ICD-10 - M81.0) DISCUSSED OSTEOPOROSIS AND ITS IMPACT ON HER HEALTH. ADEQUATE CALCIUM AND VIT D. WEIGHT BEARING EXERCISES. OSTEO PRECAUTIONS. ADVISED HER TO SEE AN PARTS SALES ASSOCIATE FOR HELP REGARDING HER OSTEOPOROSIS. REQUEST HER PCP TO REFER HER. SHE HAS ALREADY FRACTURED AND SHE NEEDS HELP. 07/27/2024 Other specified disorders of bone density and structure, multiple sites (ICD-10 - M85.89) REPEAT BMD THIS YEAR. ADEQUATE CALCIUM AND VIT D. WEIGHT BEARING EXERCISES. 02/28/2025 Lichen sclerosus et atrophicus (ICD-10 - L90.0) DISCUSSD FINDINGS AND CONGRATULATED PAT FOR HER DILIGENCE. CONTINUE APPLYING THE MEDICATION 1 TO 2 X PER WEEK. 02/28/2025 Encounter for gynecological examination (general) (routine) without abnormal findings (ICD-10 - Z01.419) PAP TEST WAS OBTAINED. Plan Of Treatment Pending Test Test Name Order Date DEXA 05/02/2014 MAMMOGRAM, SCREENING 05/02/2014 MAMMOGRAM, SCREENING 10/10/2020 MAMMOGRAM, SCREENING 12/17/2022 MAMMOGRAM, SCREENING 02/23/2024 MAMMOGRAM, SCREENING 02/28/2025 Urinalysis 12/07/2021 Urinalysis 08/25/2017 Urinalysis 09/19/2018 Urinalysis 02/23/2024 25OH VITAMIN D 10/05/2016 25OH VITAMIN D 11/24/2016 N-TELOPEPTIDE CROSS 10/05/2016 TSH 10/05/2016 BONE DENSITY 07/27/2024 BONE DENSITY 10/08/2019 BONE DENSITY 10/10/2020 BONE DENSITY 12/07/2021 MM Digital Mammo Screening 12/07/2021 MM Digital Mammo Screening 10/10/2020 MM Digital Mammo Screening 02/28/2025 MM Digital Mammo Screening 12/17/2022 MM Digital Mammo Screening 02/23/2024 [id number] 10/22/2024 CBC With Differential/Platelet-[id number] PTH, Intact-[id number] 10/22/2024 Vitamin D, 17-[id number] 10/22/2024 Comp. Metabolic Panel [id number] 2024 Next Appt Details Provider Name:Andra elizabeth, 03/10/2026 08:40:00 AM, [address] [facility], [address], [place], [address], Insurance Providers Payer Name Payer Address Payer Phone Subscriber Number Group Number Insured Name Patient Relationship to Insured Coverage Start Date Coverage End Date CIG[employer] [address] [place] [address] [id number] ADRIAN GOODMAN Self - patient is the [...]
--- OUTSIDE RECORDS SUMMARY | 2025-03-05 16:12 | XMS_ITS | Clinical Summary ---
Author Organization [facility] Prior to 08/11/24 Address [address] [place] [address] Care Team Providers Care Technical Services Representative Name Role Phone Unavailable Primary Care Provider Unavailabl e Social History Tobacco Use Types Packs/Day Years Used Date Smoking Tobacco: Never Assessed Sex and Gender Information Value Date Recorded Sex Assigned at Not on file Gender Identity Not on file Sexual Orientation Not on file Plan of Treatment Not on file
--- OUTSIDE RECORDS SUMMARY | 2025-03-05 16:12 | XMS_ITS | Encounter Summary ---
Author Organization [facility] Address [address] [place] [address] Care Team Providers Care Papier Mache Molder Name Role Phone Tracey Spear RESEARCH INSTRUCTOR Primary Care Provider [phone] Andra Ramirez MD Unavailable Encounter Details Date Type Department Care Team (Late st Contact Info) Description 04/09/2021 Scanned Document [address] [address] Tracey Spear, RESEARCH INSTRUCTOR [address] [place] [address] Social History Tobacco Use Types Packs/Day Years [...] on filedocumented in this encounter Care Teams Papier Mache Molder Relationship Specialty Start Date End Date Tracey Spear APRN PCP - General Family Medicine 09/30/17 06/10/22 Andra Ramirez MD [address] [place] [address] Referring Provider Gynecology 09/19/20 documented as of this encounter
--- OUTSIDE RECORDS SUMMARY | 2025-03-05 16:12 | XMS_ITS | Encounter Summary ---
Author Organization [facility] Address [address] [place] [address] Care Team Providers Care Civil Cad Tech Name Role Phone Tracey Spear ANALOG IC DESIGN ENGINEER Primary Care Provider [phone] Andra Ramirez MD Unavailable [phone] Encounter Details Date Type Department Care Team (Late st Contact Info) Description 01/19/2021 Scanned Document [address] [phone] Tracey Spear, ANALOG IC DESIGN ENGINEER [address] [place] [address] Social History Tobacco Use Types Packs/Day Years [...] on filedocumented in this encounter Care Teams Civil Cad Tech Relationship Specialty Start Date End Date Tracey Spear APRN PCP - General Family Medicine 09/30/17 06/10/22 Andra Ramirez MD [address] [place] [address] Referring Provider Gynecology 09/19/20 documented as of this encounter
== END 2025-03-05 14:55 | disposition home or self-care (01) ==
LOC: HO.HMGCX 14:54
PROVIDERS: PCP Internal Medicine; Visit Provider Internal Medicine
DX: E03.8 Other specified hypothyroidism (principal); Z80.8 Family history of malignant neoplasm of other organs or systems
CPT/HCPCS: 76536

== ENCOUNTER → 2025-03-05 15:05 | Outpatient (BNV) | payer OTHER, SELFPAY | PROVIDERS: PCP Internal Medicine; Visit Provider Radiology Diagnostic Radiology | DX: E03.8 Other specified hypothyroidism (principal) | CPT/HCPCS: 76536 ==

== ENCOUNTER 2025-03-12 10:38 | Outpatient (REF) | payer OTHER, SELFPAY ==
--- OUTSIDE RECORDS SUMMARY | 2023-12-23 03:30 | XMS_ITS ---
Author Organization [facility] Address [address] [facility] [address] [place] [address] Care Team Providers Care Manager Storage Name Role Phone SHADE MELENDEZ Primary Care Provider Andra Farooq Unavailable [phone] REASON FOR VISIT Annual (YELLOW FORM DONE) Encounters Encounter Location Date Provider Diagnosis [facility] [address] [address] 12/23/2023 Andra Ramirez Plan Of Treatment Next Appt Details Provider Name:Andra elizabeth, 03/10/2026 08:40:00 AM, [address] [facility] [address], [place], [address], Progress Notes * ADRIAN GOODMANDOB: (64 yo F)Acc No.[id number]:12/23/2023 PROGRESS NOTES Patient: ADRIAN BRIONES Appointment Provider: Axel Ramirez M.D. :1960 A ge:63 Y S ex:Female Date:12/23/2023 Address:[address] [place] [address] Pcp:SHADE MELENDEZ Subjective: * Chief Complaints: * 1 . Annual (YELLOW FORM DONE). * Medical History: Objective: * Vitals: Assessment: Plan: * Treatment: * Images: Billing Information: * Visit Code: * Procedure Codes: * Electronic signature of Ann Marie Ramirez MD on 03/12/2025 at 02:15 PM EST Sign off status: Pending * Appointment Provider: Axel Ramirez M.D. Date: 1 Generated for Mundo mart/Brent/John on: 1 02:15 PM EST
--- OUTSIDE RECORDS SUMMARY | 2025-03-12 14:15 | XMS_ITS | Encounter Summary ---
Author Organization [facility] Address [address] [place] [address] Care Team Providers Care Cash Specialist Name Role Phone Tracey Spear SUPERINTENDENT OPERATIONS DIVISION Primary Care Provider [phone] Andra Ramirez MD Unavailable Encounter Details Date Type Department Care Team (Late st Contact Info) Description 01/19/2021 Scanned Document [facility] [address] [place] [phone] Tracey Spear, SUPERINTENDENT OPERATIONS DIVISION [address] [place] [address] Social History Tobacco Use Types Packs/Day Years [...] on filedocumented in this encounter Care Teams Cash Specialist Relationship Specialty Start Date End Date Tracey Spear APRN PCP - General Family Medicine 09/30/17 06/10/22 Andra Ramirez MD [address] [place] [address] Referring Provider Gynecology 09/19/20 documented as of this encounter
--- OUTSIDE RECORDS SUMMARY | 2025-03-12 14:15 | XMS_ITS | Clinical Summary ---
Author Organization [facility] Address [address] [place] [address] Care Team Providers Care Electrical Foreman Name Role Phone Andra Ramirez MD Unavailable [phone] Allergies Active Allergy Reactions Criticality Noted Date Comments Penicillins Rash/Dermatitis Low 11/18/2016 Medications ergocalciferol (ERGOCALCIFEROL ) 21704 units capsuleIndicati ons:Vitamin D deficiency Take 1 [...] 2 Active cholecalciferol (CHOLECALCIFERO L) 1.25 MG (62203 UT) capsuleIndicati ons:Vitamin D deficiency TAKE 1 [...] for low risk patient COLOGUARD CANCER SCREEN ([employer]) Routine 04/09/2021 PATHOLOGY GYNECOLOGY Routine 09/21/2018 from Last 3 Months or Most Recently Relevant to Health Maintenance Results * (ABNORMAL) Lipid Panel Reflex Direct LDL (06/26/2021 7:41 AM EDT) Cholesterol, Total 117 <200 mg/dL [facility] Cholesterol, HDL 42(L) > OR = 50 mg/dL [facility] Triglycerides 58 <150 mg/dL [facility] LDL Cholesterol 62 mg/dL (calc) [facility] Comment: Reference range: <100 Desirable range <100 mg/dL for primary prevention; <70 mg/dL for patients with CHD or diabetic patients with > or = 2 CHD risk factors. LDL-C is now calculated using the Bonnie calculation, which is a validated novel method providing better accuracy than the Friedewald equation in the estimation of LDL-C. Alejo FERNANDEZ et al. KANDY. 2013;310(19): 9294-0151 (http://education.QuestDiagnostics.com/faq/CBD308) Cholesterol/HDL Ratio 2.8 <5.0 (calc) [facility] Non HDL Chol. (LDL+VLDL) 75 <130 mg/dL (calc) [facility] Comment: For patients with diabetes plus 1 major ASCVD risk factor, treating to a non-HDL-C goal of <100 mg/dL (LDL-C of <70 mg/dL) is considered a therapeutic option. Blood specimen (specimen) 06/26/2021 7:41 AM EDT 06/26/2021 7:41 AM EDT Narrative [facility] - 06/27/2021 1:38 AM EDT FASTING:YES FASTING: YES us Tracey Spear APRN LAB BLOOD ORDERABLES [place] Result Performing Organization Address City/[facility]/ZIP Co de Phone Number [facility] [address] [place] [address], [place] [address] * Hepatitis C Antibody (06/26/2021 7:39 AM EDT) Hepatitis C Antibody NON-REACT NEAL NON-REACT NEAL [facility] Hepatitis C Antibody (s/co) 0.14 <1.00 [facility] Comment: HCV antibody was non-reactive. There is no laboratory evidence of HCV infection. In most cases, no further action is required. However, if recent HCV exposure is suspected, a test for HCV RNA (test code 55883) is suggested. For additional information please refer to http://education.Looklet/faq/QBG43l5 (This link is being provided for informational/ educational purposes only.) Blood specimen (specimen) Blood specimen / Unknown 06/26/2021 7:39 AM EDT 06/26/2021 7:40 AM EDT Narrative [facility] - 06/27/2021 2:06 AM EDT FASTING:YES FASTING: YES us Tracey Spear APRN LAB BLOOD ORDERABLES [place] Result [facility] [address] [place] [address], [place] [address] * Cologuard ([employer]) (04/09/2021) us Tracey Cortes Beatris COLLEGE HIRE BODY FLUIDS AND STOOLS OR DERABLES Final Result * PATHOLOGY GYNECOLOGY (09/21/2018) us External Provider [facility] HX PATH PROCEDURES [place] Result from Last 3 Months or Most Recently Relevant to Health Maintenance Insurance [facility] [id number] CIGNA HMO Care Teams Electrical Foreman Relationship Specialty Start Date End Date Andra Ramirez MD [address] [place] [address] Referring Provider Gynecology 09/19/20
--- OUTSIDE RECORDS SUMMARY | 2025-03-12 14:15 | XMS_ITS | Encounter Summary ---
Author Organization [facility] Address [address] [place] [address] Care Team Providers Care Application Specialist Name Role Phone Tracey Spear MANUFACTURING PLANT TECHNICIAN Primary Care Provider [phone] Andra Ramirez MD Unavailable [phone] Encounter Details Date Type Department Care Team (Late st Contact Info) Description 04/09/2021 Scanned Document [address] [phone] Tracey Spear, MANUFACTURING PLANT TECHNICIAN [address] [place] [address] Social History Tobacco Use Types Packs/Day Years [...] on filedocumented in this encounter Care Teams Application Specialist Relationship Specialty Start Date End Date Tracey Spear APRN PCP - General Family Medicine 09/30/17 06/10/22 Andra Ramirez MD [address] [place] [address] Referring Provider Gynecology 09/19/20 documented as of this encounter
--- OUTSIDE RECORDS SUMMARY | 2025-03-12 14:15 | XMS_ITS | Clinical Summary ---
Author Organization [facility] Prior to 08/11/24 Address [address] [place] [address] Care Team Providers Care Installation Engineer Name Role Phone Unavailable Primary Care Provider Unavailabl e Social History Tobacco Use Types Packs/Day Years Used Date Smoking Tobacco: Never Assessed Sex and Gender Information Value Date Recorded Sex Assigned at Not on file Gender Identity Not on file Sexual Orientation Not on file Plan of Treatment Not on file
--- OUTSIDE RECORDS SUMMARY | 2025-03-12 14:15 | XMS_ITS | Encounter Summary ---
Author Organization [facility] Address [address] [place] [address] Care Team Providers Care Insurance Sales Representative Name Role Phone Tracey Spear WASHROOM OPERATOR Primary Care Provider [phone] Tracey Spear APRN Unavailable Andra Ramirez MD Unavailable [phone] Encounter Details Date Type Department Care Team (Late st Contact Info) Description 10/08/2020 Documentation [facility] [address] [place] [phone] Estephanie Chaidez [place] [address] [place], [place] [id number] Social History Tobacco Use Types Packs/Day Years [...] on filedocumented in this encounter Care Teams Insurance Sales Representative Relationship Specialty Start Date End Date Tracey Spear APRN PCP - General Family Medicine 09/30/17 06/10/22 Tracey Spear APRN [facility] [place] [address] PCP - [employer] Attributed 02/12/20 10/11/20 Andra Ramirez MD [address] [place] [address] Referring Provider Gynecology 09/19/20 documented as of this encounter
--- OUTSIDE RECORDS SUMMARY | 2025-03-12 14:15 | XMS_ITS | Encounter Summary ---
Author Organization [facility] Address [address] [place] [address] Care Team Providers Care Cvir Tech Name Role Phone Tracey Spear PIPE FITTER MARINE Primary Care Provider [phone] Andra Ramirez MD Unavailable [phone] Encounter Details Date Type Department Care Team (Late st Contact Info) Description 01/01/2021 Scanned Document [facility] [address] [place] [phone] Tracey Spear, PIPE FITTER MARINE [address] [place] [phone] Social History Tobacco Use Types Packs/Day Years [...] on filedocumented in this encounter Care Teams Cvir Tech Relationship Specialty Start Date End Date Tracey Spear, PIPE FITTER MARINE PCP - General Family Medicine 09/30/17 06/10/22 Andra Ramirez MD [address] [place] [address] Referring Provider Gynecology 09/19/20 documented as of this encounter
--- OUTSIDE RECORDS SUMMARY | 2025-03-12 14:15 | XMS_ITS | Patient Health Record ---
Author Organization [facility] Address [address] [place] [address] Care Team Providers Care Material Man Name Role Phone SHADE MELENDEZ Primary Care Provider Andra Farooq [phone] Allergies Allergen (clinical drug ingredient) Drug/Non Drug Allergy documented on EMR Reaction Allergy Type Onset Date Status Penicillin Unknown Drug Allergy Active Results Component Value Reference Range Notes PDF Report Reviewed date:03/04/2025 06:28:43 PM Interpretation: Performing Lab:[facility], [address], [address], [place], Phone - [phone], Director - [facility] Notes/Report: Clinical Information:CERV [id number] Dates / Results....12/07/2021 NIL NEG HPV No. of containers..01 ThinPrep Vial [id number] IGP No Culture 30 Plus Reviewed date:03/04/2025 06:36:23 PM Interpretation: Performing Lab:[facility], [address], [address], [place], Phone - [phone], Director - [facility] Notes/Report: Clinical Information:CERV [id number] Dates / Results....12/07/2021 NIL NEG HPV No. of containers..01 ThinPrep Vial DIAGNOSIS: NEGATIVE FOR INTRAEPITHELIAL LESION OR MALIGNANCY. CELLULAR CHANGES ASSOCIATED WITH ATROPHY ARE PRESENT. Specimen adequacy: Satisfactory for evaluation. Endocervical component may not be distinguished in cases of atrophy. Clinician provided ICD10: Z01.419 Z11.51 Performed by: Kirk Laws , Yarn Sizer (ASCP) . . Note: The Pap smear [...] Status Risk Notes Problem Postmenopausal atrophic vaginitis (33594319) Postmenopausal atrophic vaginitis (N95.2) Active confirmed Problem Age-related osteoporosis (182365309) Age-related osteoporosis without current pathological fracture (M81.0) Active confirmed Problem Morbid obesity (disorder) (514768620) Morbid (severe) obesity due to excess calories (E66.01) Active confirmed Problem Localized morphea (009289283) 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) Active confirmed Problem Atrophy of vulva (849682548) Atrophy of vulva (N90.5) Active confirmed Problem Vitamin D deficiency (97234213) Vitamin D deficiency, unspecified (E55.9) Active confirmed Problem Menopausal symptom (74992498) Symptomatic menopausal or female climacteric states (627.2) Active confirmed Major Problem Postmenopausal atrophic vaginitis (56155935) Postmenopausal atrophic vaginitis (627.3) Active confirmed Diag Problem Gynecological examination normal (845592164675925) Routine gynecological examination (V72.31) Active confirmed Problem Screening for malignant neoplasm of colon (119299187) Special screening for malignant neoplasms, colon (V76.51) Active confirmed Major Vital Signs Temperature 98.2 degrees Fahrenheit 02/28/2025 Blood pressure diastolic 62 mm Hg 02/28/2025 Height 61.25 in 02/28/2025 Blood pressure systolic 96 mm Hg 02/28/2025 Weight 134 lbs 02/28/2025 BMI 25.11 kg/m2 02/28/2025 Encounters Encounter Location Date Provider Diagnosis [facility] [address] [address] 04/06/2024 Andra Ramirez Lichen sclerosus et atrophicus L90.[address] [address] 07/27/2024 Andra Ramirez Lichen sclerosus et atrophicus L90.0 ; Atrophy of vulva N90.5 and Other specified disorders of bone density and structure, multiple sites M85.[address] [facility] [address] [address] 11/30/2024 Andra Ramirez Age-related osteoporosis without current pathological fracture M81.[address] [address] 02/28/2025 Andra Ramirez Encounter for screening for human papillomavirus (HPV) Z11.51 ; Encounter for screening mammogram for malignant neoplasm of breast Z12.31 ; Age-related osteoporosis without current pathological fracture M81.0 ; Lichen sclerosus et atrophicus L90.0 and Encounter for gynecological examination (general) (routine) without abnormal findings Z01.[address] [facility] [address] [address] 10/22/2024 Andramandy Ramirez Age-related osteoporosis without current pathological fracture M81.[address] [address] 11/14/2024 Andra Ramirez [facility] [address] [address] 11/30/2024 Andra Russellva Assessments Encounter Date Diagnosis [...] [employer]. ADVISED HER TO SEE AN AIR TRAFFIC CONTROL MANAGER FOR HELP REGARDING HER OSTEOPOROSIS. REQUEST HER [...] Screening 12/17/2022 MM Digital Mammo Screening 02/23/2024 [id number] 10/22/2024 CBC With Differential/Platelet-[id number] PTH, Intact-[id number] 10/22/2024 Vitamin D, [id number] 10/22/2024 Comp. Metabolic Panel [id number] 2024 Next Appt Details Provider Name:Andra elizabeth, 03/10/2026 08:40:00 AM, [address], [address], [place], [address], Insurance Providers Payer Name Payer Address Payer Phone Subscriber Number Group Number Insured Name Patient Relationship to Insured Coverage Start Date Coverage End Date [employer] [address] [place] [address] [id number] ADRIAN GOODMAN Self - patient is the [...]
== END 2025-03-12 10:39 | disposition home or self-care (01) ==
LOC: HO.HMGCLDS 10:38
PROVIDERS: PCP Internal Medicine; Visit Provider Internal Medicine
DX: E03.8 Other specified hypothyroidism (principal)
CPT/HCPCS: 36415; 84443